=== PATIENT | male | born 1950 | race African-American/Black ===

== ENCOUNTER 2018-05-14 19:08 | Inpatient (IN) ==
[2018-05-14 20:13] LABS: Basophils % 0.4 % (0.0-0.8); Eosinophils # 0.2 10*3/uL (0.0-0.87); Eosinophils % 1.5 % (0.00-10.9); Hematocrit 25.1 VOL% (42.0-52.0); Immature Granulocytes % 0.6 %; Immature Granulocytes Absolute 0.07 #; Lymphocytes # 1.4 10*3/uL (1.4-4.0); Lymphocytes % 12.3 % (21.2-54.2); Mean Corpuscular HGB Conc 27.9 GM/DL (32-36); Mean Corpuscular Hemoglobin 24 PG (27-34); Mean Corpuscular Volume 85.1 FL (87-102); Mean Platelet Volume 9.7 FL (9.6-12.0); Monocytes % 8.7 % (1.7-12.7); Neutrophils # 8.6 10*3/uL (1.4-7.4); Neutrophils % 76.5 % (38.7-73.9); Platelet Count 228 T/CUMM (130-400); Red Blood Count 2.95 MC/CUMM (3.8-5.5); White Blood Count 11.2 T/CUMM (4-12)
[2018-05-14] MEDS ORDERED: FUROSEMIDE 100 MG/10 ML VIAL IV STA (20:19)
[2018-05-14 20:28] LABS: Albumin 2.8 G/DL (3.4-5.0); Bilirubin,Total 0.6 MG/DL (0.2-1.0); Calcium 8.4 MG/DL (8.5-10.1); Potassium 3.8 MMOL/L (3.5-5.1); Total Protein 6.9 G/DL (6.4-8.3)
[2018-05-14 20:37] LABS: INR 1.2; PT Patient Result 13.4 SECS
[2018-05-14 20:38] LABS: ABG Base Excess -3.2 MMOL/L (-2.5-2.5); ABG HCO3 21.4 MMOL/L (20-26); ABG Oxygen Saturation 96.4 % (95-100); ABG PCO2 36.2 MM HG (35-48); ABG PH 7.389 (7.35-7.45); ABG PO2 92.7 MM HG (80-95); ABG TCO2 22.5 MMOL/L (23-27); Allen Test Positive
[2018-05-14] MEDS ORDERED: MAGNESIUM OXIDE 400 MG TABLET PO ONE (21:11)
[2018-05-14] MEDS ORDERED: ONDANSETRON 4 MG/2 ML VIAL IV PRN (21:45)
[2018-05-14] MEDS ORDERED: GLUCAGON 1 MG VIAL IM PRN (22:01)
[2018-05-14] MEDS ORDERED: DEXTROSE 50% 25 GM/50 ML SYRINGE IV PRN (22:01)
[2018-05-14] MEDS ORDERED: hydrALAZINE 20 MG/1 ML VIAL IV PRN (22:02)
[2018-05-14 23:13] LABS: % Iron Saturation 4.6 % (18-50); Ferritin 18.7 ng/ml (26-388)
[2018-05-15 00:04] LABS: Apearance,Urine CLEAR (Clear); Bacteria,Urine Occasional /HPF (Few); Bilirubin,Urine Negative (Negative); Blood, Urine Negative (Negative); Glucose,Urine (UA) Negative (Negative); Ketones,Urine Negative (Negative); Mucus,Urine Occasional /LPF (Occasional); Nitrite,Urine Negative (Negative); Protein,Urine 30 MG/DL; RBC,Urine 2 /HPF (0-4); Squamous Epithelial Cell,Urine Occasional /HPF (0-10); Urine Color Straw (Yellow); Urine Specific Gravity 1.006 (1.001-1.035); Urine Urobilinogen < 2.0 EU/DL (0.2-1.0); WBC,Urine 1 /HPF (0-6)
[2018-05-15] MEDS: INSULIN LISPRO 100 UNIT/ML SUBCUT SCH ×4 (00:10→18:34)
[2018-05-15] MEDS: ALBUTEROL/IPRATROPIUM 3 ML NEB RESP TX SCH ×4 (01:17→19:53)
[2018-05-15] MEDS: HEPARIN 5,000 UNIT/1 ML VIAL SUBCUT SCH ×4 (01:34→21:49)
[2018-05-15 05:11] LABS: Basophils % 0.3 % (0.0-0.8); Eosinophils # 0.2 10*3/uL (0.0-0.87); Eosinophils % 1.5 % (0.00-10.9); Hematocrit 25.8 VOL% (42.0-52.0); Immature Granulocytes % 0.6 %; Immature Granulocytes Absolute 0.07 #; Lymphocytes # 1.2 10*3/uL (1.4-4.0); Lymphocytes % 11.2 % (21.2-54.2); Mean Corpuscular HGB Conc 27.5 GM/DL (32-36); Mean Corpuscular Hemoglobin 23 PG (27-34); Mean Corpuscular Volume 84.3 FL (87-102); Mean Platelet Volume 9.5 FL (9.6-12.0); Monocytes % 8.8 % (1.7-12.7); Neutrophils # 8.5 10*3/uL (1.4-7.4); Neutrophils % 77.6 % (38.7-73.9); Platelet Count 229 T/CUMM (130-400); Red Blood Count 3.06 MC/CUMM (3.8-5.5); White Blood Count 10.9 T/CUMM (4-12)
[2018-05-15 05:12] LABS: Hemoglobin 7.1 GM/DL (14.0-18.0)
[2018-05-15 05:15] LABS: Hypochromasia 1+; Ovalocytes Slight; Platelet Estimate Adequate
[2018-05-15 05:22] LABS: Calcium 8.7 MG/DL (8.5-10.1); Osmolality,Calculated 306.7 MOS/KG (273-304); Potassium 4.1 MMOL/L (3.5-5.1)
[2018-05-15] MEDS: hydrALAZINE 25 MG TABLET PO SCH ×2 (08:20→21:49)
[2018-05-15] MEDS: FUROSEMIDE 40 MG/4 ML VIAL IV SCH ×2 (08:20→17:00)
[2018-05-15] MEDS: ATORVASTATIN 20 MG TABLET PO SCH (08:20)
[2018-05-15] MEDS: amLODIPine 10 MG TABLET PO SCH (08:20)
[2018-05-15] MEDS: FENOFIBRATE 145 MG TABLET PO SCH (08:20)
[2018-05-15] MEDS: ASPIRIN CHEW 81 MG TABLET PO SCH (08:20)
[2018-05-15] MEDS: metOLazone 5 MG TABLET PO SCH (08:20)
[2018-05-15] MEDS: PANTOPRAZOLE 40 MG TABLET PO SCH (08:20)
[2018-05-15] MEDS ORDERED: ROSUVASTATIN 20 MG TABLET PO SCH (09:00)
[2018-05-15] MEDS ORDERED: SODIUM CHLORIDE 0.9% 1,000 ML IV PRN (09:06)
[2018-05-15] MEDS: CARVEDILOL 3.125 MG TABLET PO SCH ×2 (09:40→21:49)
[2018-05-16] MEDS: INSULIN LISPRO 100 UNIT/ML SUBCUT SCH ×3 (00:15→12:01)
[2018-05-16] MEDS: ALBUTEROL/IPRATROPIUM 3 ML NEB RESP TX SCH ×4 (00:36→19:30)
[2018-05-16 05:39] LABS: Total Protein (Chem) 7.1 G/DL (6.4-8.3)
[2018-05-16] MEDS: HEPARIN 5,000 UNIT/1 ML VIAL SUBCUT SCH ×3 (06:39→21:54)
[2018-05-16 09:22] LABS: Albumin (SPE) 3.9 G/DL (3.2-5.3); Albumin (SPE) Rel % 54.5 %; Alpha 1 (SPE) 0.3 G/DL (0.1-0.4); Alpha 1 (SPE) Rel % 4.2 %; Alpha 2 (SPE) 0.8 G/DL (0.4-1.0); Beta (SPE) 1.6 G/DL (0.5-1.1)
[2018-05-16 09:23] LABS: Beta (SPE) Rel % 22.4 %; Gamma (SPE) 0.6 G/DL (0.7-1.7); Gamma (SPE) Rel % 7.9 %
[2018-05-16] MEDS: FUROSEMIDE 40 MG/4 ML VIAL IV SCH ×2 (10:11→16:14)
[2018-05-16] MEDS: ASPIRIN CHEW 81 MG TABLET PO SCH (10:18)
[2018-05-16] MEDS: metOLazone 5 MG TABLET PO SCH (10:19)
[2018-05-16] MEDS: PANTOPRAZOLE 40 MG TABLET PO SCH (10:20)
[2018-05-16] MEDS: amLODIPine 10 MG TABLET PO SCH (10:20)
[2018-05-16] MEDS: FENOFIBRATE 145 MG TABLET PO SCH (10:20)
[2018-05-16] MEDS: hydrALAZINE 25 MG TABLET PO SCH ×2 (10:20→21:53)
[2018-05-16] MEDS: CARVEDILOL 3.125 MG TABLET PO SCH ×2 (10:20→21:53)
[2018-05-16] MEDS: ATORVASTATIN 20 MG TABLET PO SCH (10:20)
[2018-05-16 11:05] LABS: Calcium 8.4 MG/DL (8.5-10.1); Osmolality,Calculated 301.4 MOS/KG (273-304); Potassium 3.9 MMOL/L (3.5-5.1)
[2018-05-16 11:05] LABS: Basophils % 0.3 % (0.0-0.8); Eosinophils # 0.2 10*3/uL (0.0-0.87); Eosinophils % 2.2 % (0.00-10.9); Hematocrit 28.1 VOL% (42.0-52.0); Hemoglobin 8.1 GM/DL (14.0-18.0); Immature Granulocytes % 0.5 %; Immature Granulocytes Absolute 0.05 #; Lymphocytes # 0.7 10*3/uL (1.4-4.0); Lymphocytes % 6.9 % (21.2-54.2); Mean Corpuscular HGB Conc 28.8 GM/DL (32-36); Mean Corpuscular Hemoglobin 24 PG (27-34); Mean Corpuscular Volume 83.6 FL (87-102); Mean Platelet Volume 9.7 FL (9.6-12.0); Monocytes # 0.8 10*3/uL (0.11-0.8); Monocytes % 8.1 % (1.7-12.7); Neutrophils # 8.1 10*3/uL (1.4-7.4); Platelet Count 209 T/CUMM (130-400); Red Blood Count 3.36 MC/CUMM (3.8-5.5); Red Cell Distribution Width 18.2 % (9.3-17.3); White Blood Count 9.9 T/CUMM (4-12)
[2018-05-16 11:35] LABS: Hypochromasia 1+; Microcytosis 1+; Spherocytes Slight
[2018-05-16 11:36] LABS: Platelet Estimate Normal; Polychromasia Slight
[2018-05-16] MEDS ORDERED: SKIN HEALING OINT (AQUAPHOR) 50 GM TUBE TOP PRN (13:58)
[2018-05-16 15:42] LABS: Microalbum/Creat Ratio Random 1893.3 RATIO (0-30)
[2018-05-17] MEDS: INSULIN LISPRO 100 UNIT/ML SUBCUT SCH ×3 (00:12→14:04)
[2018-05-17] MEDS: ALBUTEROL/IPRATROPIUM 3 ML NEB RESP TX SCH ×4 (00:20→19:43)
[2018-05-17 04:54] LABS: Basophils % 0.3 % (0.0-0.8); Eosinophils # 0.3 10*3/uL (0.0-0.87); Eosinophils % 2.7 % (0.00-10.9); Hemoglobin 8.1 GM/DL (14.0-18.0); Immature Granulocytes % 0.4 %; Immature Granulocytes Absolute 0.04 #; Lymphocytes # 1.3 10*3/uL (1.4-4.0); Lymphocytes % 14.2 % (21.2-54.2); Mean Corpuscular HGB Conc 28.9 GM/DL (32-36); Mean Corpuscular Hemoglobin 24 PG (27-34); Mean Corpuscular Volume 83.1 FL (87-102); Mean Platelet Volume 9.6 FL (9.6-12.0); Monocytes % 10.7 % (1.7-12.7); Neutrophils # 6.7 10*3/uL (1.4-7.4); Neutrophils % 71.7 % (38.7-73.9); Platelet Count 226 T/CUMM (130-400); Red Blood Count 3.37 MC/CUMM (3.8-5.5); Red Cell Distribution Width 17.9 % (9.3-17.3); White Blood Count 9.4 T/CUMM (4-12)
[2018-05-17 05:08] LABS: Calcium 8.4 MG/DL (8.5-10.1); Osmolality,Calculated 299.5 MOS/KG (273-304)
[2018-05-17 05:13] LABS: Hypochromasia 1+; Microcytosis 1+; Platelet Estimate Adequate
[2018-05-17] MEDS: HEPARIN 5,000 UNIT/1 ML VIAL SUBCUT SCH ×3 (06:02→22:29)
[2018-05-17] MEDS: FUROSEMIDE 40 MG/4 ML VIAL IV SCH ×2 (09:48→15:47)
[2018-05-17] MEDS: ASPIRIN CHEW 81 MG TABLET PO SCH (09:50)
[2018-05-17] MEDS: PANTOPRAZOLE 40 MG TABLET PO SCH (09:50)
[2018-05-17] MEDS: FENOFIBRATE 145 MG TABLET PO SCH (09:50)
[2018-05-17] MEDS: amLODIPine 10 MG TABLET PO SCH (09:51)
[2018-05-17] MEDS: hydrALAZINE 25 MG TABLET PO SCH (09:51)
[2018-05-17] MEDS: metOLazone 5 MG TABLET PO SCH (09:51)
[2018-05-17] MEDS: CARVEDILOL 3.125 MG TABLET PO SCH ×2 (09:51→22:27)
[2018-05-17] MEDS: ATORVASTATIN 20 MG TABLET PO SCH (09:51)
[2018-05-17] MEDS ORDERED: MAGNESIUM SULF RIDER 4 GM in PREMIX 1 EACH IV PRN (10:55)
[2018-05-17] MEDS ORDERED: MAGNESIUM SULF RIDER 2 GM in PREMIX 1 EACH IV PRN (10:55)
[2018-05-17 13:04] LABS: Calcium 7.9 MG/DL (8.5-10.1); Osmolality,Calculated 292.4 MOS/KG (273-304); Potassium 4.1 MMOL/L (3.5-5.1)
[2018-05-17] MEDS ORDERED: hydrALAZINE 25 MG TABLET PO SCH (15:00)
[2018-05-18] MEDS: ALBUTEROL/IPRATROPIUM 3 ML NEB RESP TX SCH ×4 (02:32→20:34)
[2018-05-18] MEDS: INSULIN LISPRO 100 UNIT/ML SUBCUT SCH ×5 (03:05→18:34)
[2018-05-18 05:13] LABS: Basophils % 0.2 % (0.0-0.8); Eosinophils # 0.2 10*3/uL (0.0-0.87); Eosinophils % 2.2 % (0.00-10.9); Hematocrit 25.1 VOL% (42.0-52.0); Hemoglobin 7.3 GM/DL (14.0-18.0); Immature Granulocytes % 0.9 %; Immature Granulocytes Absolute 0.08 #; Lymphocytes # 1.3 10*3/uL (1.4-4.0); Lymphocytes % 14.9 % (21.2-54.2); Mean Corpuscular HGB Conc 29.1 GM/DL (32-36); Mean Corpuscular Hemoglobin 24 PG (27-34); Mean Corpuscular Volume 82.6 FL (87-102); Mean Platelet Volume 10.7 FL (9.6-12.0); Monocytes % 11.6 % (1.7-12.7); Neutrophils # 6.3 10*3/uL (1.4-7.4); Neutrophils % 70.2 % (38.7-73.9); Platelet Count 227 T/CUMM (130-400); Red Blood Count 3.04 MC/CUMM (3.8-5.5); White Blood Count 8.9 T/CUMM (4-12)
[2018-05-18 05:42] LABS: Risk Ratio 2.87; VLDL CHOLESTEROL 18.2 MG/DL
[2018-05-18] MEDS: HEPARIN 5,000 UNIT/1 ML VIAL SUBCUT SCH ×3 (06:19→21:04)
[2018-05-18 06:42] LABS: Calcium 8.1 MG/DL (8.5-10.1); Osmolality,Calculated 302.5 MOS/KG (273-304); Potassium 3.5 MMOL/L (3.5-5.1)
[2018-05-18] MEDS: POTASSIUM CHLORIDE 20 MEQ TABLET PO PRN ×2 (06:55→16:26)
[2018-05-18] MEDS: ATORVASTATIN 20 MG TABLET PO SCH (08:46)
[2018-05-18] MEDS: ASPIRIN CHEW 81 MG TABLET PO SCH (08:46)
[2018-05-18] MEDS: PANTOPRAZOLE 40 MG TABLET PO SCH (08:47)
[2018-05-18] MEDS: FENOFIBRATE 145 MG TABLET PO SCH (08:52)
[2018-05-18] MEDS: FUROSEMIDE 40 MG/4 ML VIAL IV SCH ×2 (08:52→17:16)
[2018-05-18] MEDS: metOLazone 5 MG TABLET PO SCH (08:52)
[2018-05-18] MEDS: CARVEDILOL 3.125 MG TABLET PO SCH ×2 (08:52→21:04)
[2018-05-18] MEDS: amLODIPine 10 MG TABLET PO SCH (08:52)
[2018-05-18] MEDS ORDERED: SODIUM CHLORIDE 0.9% 1,000 ML IV PRN (11:28)
[2018-05-18 18:09] LABS: Hematocrit 28.3 VOL% (42.0-52.0); Hemoglobin 8.4 GM/DL (14.0-18.0)
[2018-05-18] MEDS: ISOSORBIDE DINITRATE 20 MG TABLET PO SCH (21:04)
[2018-05-19] MEDS: INSULIN LISPRO 100 UNIT/ML SUBCUT SCH ×3 (01:09→13:53)
[2018-05-19] MEDS: ALBUTEROL/IPRATROPIUM 3 ML NEB RESP TX SCH ×2 (02:07→07:05)
[2018-05-19] MEDS: HEPARIN 5,000 UNIT/1 ML VIAL SUBCUT SCH (05:22)
[2018-05-19] MEDS: ASPIRIN CHEW 81 MG TABLET PO SCH (08:12)
[2018-05-19] MEDS: ISOSORBIDE DINITRATE 20 MG TABLET PO SCH (08:13)
[2018-05-19] MEDS: ATORVASTATIN 20 MG TABLET PO SCH (08:13)
[2018-05-19] MEDS: FENOFIBRATE 145 MG TABLET PO SCH (08:13)
[2018-05-19] MEDS: PANTOPRAZOLE 40 MG TABLET PO SCH (08:13)
[2018-05-19] MEDS: metOLazone 5 MG TABLET PO SCH (08:13)
[2018-05-19] MEDS: CARVEDILOL 3.125 MG TABLET PO SCH (08:13)
[2018-05-19] MEDS: amLODIPine 10 MG TABLET PO SCH (08:14)
[2018-05-19] MEDS: FUROSEMIDE 40 MG/4 ML VIAL IV SCH (08:19)
[2018-05-19] MEDS ORDERED: DESITIN 4OZ/NYSTATIN 15 GRAM MIXTURE PASTE TOP PRN (10:43)
[2018-05-19 12:05] VITALS: BP 143/67
== END 2018-05-19 13:45 | disposition home health service (06) | DRG 291 ==
LOC: N.ED 19:08 → SUATTDRO 21:45 → N.EDINP 21:45 → N.TELES 22:28
PROVIDERS: ADMIT Hospitalist; ATTEND Hospitalist

== ENCOUNTER 2018-10-16 20:26 | Inpatient (IN) ==
[2018-10-16 22:27] LABS: Basophils % 0.2 % (0.0-0.8); Eosinophils # 0.1 10*3/uL (0.0-0.87); Eosinophils % 0.5 % (0.00-10.9); Hematocrit 20.8 VOL% (42.0-52.0); Immature Granulocytes % 1.7 %; Immature Granulocytes Absolute 0.28 #; Lymphocytes # 1.3 10*3/uL (1.4-4.0); Lymphocytes % 8.1 % (21.2-54.2); Mean Corpuscular HGB Conc 27.9 GM/DL (32-36); Mean Platelet Volume 9.5 FL (9.6-12.0); Monocytes % 6.9 % (1.7-12.7); NRBC # 0.02 10*3/uL; Neutrophils % 82.6 % (38.7-73.9); Platelet Count 256 T/CUMM (130-400); Red Blood Count 2.39 MC/CUMM (3.8-5.5); Red Cell Distribution Width 19.5 % (9.3-17.3); White Blood Count 16.5 T/CUMM (4-12)
[2018-10-16 22:29] LABS: Hemoglobin 5.8 GM/DL (14.0-18.0)
[2018-10-16 22:43] LABS: Alanine Aminotransferase 24 U/L (16-61); Albumin 2.9 G/DL (3.4-5.0); Alkaline Phosphatase 112 U/L (45-117); Aspartate Amino Transferase 27 U/L (0-37); Bilirubin,Total < 0.39 MG/DL (0.2-1.0); Blood Urea Nitrogen 88 MG/DL (7-18); Calcium 8.3 MG/DL (8.5-10.1); Glucose 117 MG/DL (74-106); Total Protein 7.4 G/DL (6.4-8.3)
[2018-10-16 22:44] LABS: Anisocytosis 1+; Hypochromasia Slight; Microcytosis 1+
[2018-10-16 22:45] LABS: Platelet Estimate Adequate; Polychromasia Few; Schistocytes Few
[2018-10-16 23:13] LABS: INR 1.1; PT Patient Result 11.5 SECS
[2018-10-16 23:56] LABS: Troponin I 0.078 NG/ML (0.00-0.045)
[2018-10-17] MEDS ORDERED: PANTOPRAZOLE 40 MG VIAL IV STA (00:05)
[2018-10-17] MEDS ORDERED: hydrOXYzine HCL 25 MG TABLET PO PRN (03:18)
[2018-10-17] MEDS ORDERED: SODIUM CHLORIDE 0.9% 1,000 ML IV PRN ×2 (03:18→14:31)
[2018-10-17] MEDS ORDERED: ONDANSETRON 4 MG/2 ML VIAL IV PRN (03:18)
[2018-10-17] MEDS ORDERED: FUROSEMIDE 20 MG/2 ML VIAL IV PRN (03:18)
[2018-10-17] MEDS ORDERED: ACETAMINOPHEN 325 MG TABLET PO PRN (03:18)
[2018-10-17] MEDS: CEFTAROLINE 200 MG in SODIUM CHLORIDE 0.9% 100 ML IV SCH ×2 (04:57→22:17)
[2018-10-17 05:15] LABS: Basophils % 0.1 % (0.0-0.8); Eosinophils # 0.1 10*3/uL (0.0-0.87); Eosinophils % 0.5 % (0.00-10.9); Immature Granulocytes % 1.5 %; Immature Granulocytes Absolute 0.23 #; Lymphocytes # 1.5 10*3/uL (1.4-4.0); Lymphocytes % 9.3 % (21.2-54.2); Mean Corpuscular HGB Conc 27.7 GM/DL (32-36); Mean Corpuscular Volume 88.9 FL (87-102); Mean Platelet Volume 9.8 FL (9.6-12.0); Monocytes % 6.9 % (1.7-12.7); Neutrophils % 81.7 % (38.7-73.9); Platelet Count 239 T/CUMM (130-400); Red Blood Count 1.99 MC/CUMM (3.8-5.5); Red Cell Distribution Width 19.5 % (9.3-17.3); White Blood Count 15.6 T/CUMM (4-12)
[2018-10-17 05:18] LABS: Hematocrit 17.6 VOL% (42.0-52.0); Hemoglobin 4.8 GM/DL (14.0-18.0)
[2018-10-17 05:19] LABS: Calcium 8.1 MG/DL (8.5-10.1); Osmolality,Calculated 313.8 MOS/KG (273-304)
[2018-10-17 05:29] LABS: Hematocrit 17.7 VOL% (42.0-52.0); Hemoglobin 4.9 GM/DL (14.0-18.0)
[2018-10-17 05:43] LABS: Hypochromasia 2+; Microcytosis Slight; Platelet Estimate Adequate
[2018-10-17] MEDS: PANTOPRAZOLE INJ 200 MG in SODIUM CHLORIDE 0.9% 250 ML IV SCH (06:22)
[2018-10-17] MEDS: CETIRIZINE 10 MG TABLET PO SCH (08:16)
[2018-10-17] MEDS: amLODIPine 10 MG TABLET PO SCH (08:16)
[2018-10-17] MEDS: ATORVASTATIN 20 MG TABLET PO SCH (08:16)
[2018-10-17] MEDS: CARVEDILOL 12.5 MG TABLET PO SCH ×2 (08:16→20:10)
[2018-10-17] MEDS: ISOSORBIDE DINITRATE 20 MG TABLET PO SCH ×3 (08:16→20:10)
[2018-10-17 08:56] LABS: Ferritin 22.5 ng/ml (26-388)
[2018-10-17] MEDS ORDERED: FENOFIBRATE 145 MG TABLET PO SCH (09:00)
[2018-10-17] MEDS ORDERED: SODIUM BICARB INJ 150 MEQ in STERILE WATER INJ 850 ML IV SCH (12:00)
[2018-10-17 12:02] LABS: % Iron Saturation 6.8 % (18-50); Uric Acid 9.4 MG/DL (3.5-7.2)
[2018-10-17 12:10] LABS: Hematocrit 21.6 VOL% (42.0-52.0)
[2018-10-17 12:14] LABS: Hemoglobin 6.2 GM/DL (14.0-18.0)
[2018-10-17 13:11] LABS: Hematocrit 22.1 VOL% (42.0-52.0)
[2018-10-17 13:18] LABS: Hemoglobin 6.4 GM/DL (14.0-18.0)
[2018-10-17] MEDS: SODIUM BICARB INJ 150 MEQ, POTASSIUM CHLORIDE INJ 20 MEQ in STERILE WATER INJ 850 ML IV SCH (14:12)
[2018-10-17 15:27] LABS: Hepatitis B Core IgM Quant 0.07 Index; Hepatitis B Surface Ag Quant < 0.10 Index; Hepatitis B Surface Ag Result Negative (Negative); Hepatitis C Virus Ab Quant < 0.02 Index; Hepatitis C Virus Ab Result Negative (Negative)
[2018-10-17] MEDS ORDERED: ceFAZolin 1,000 MG in SYRINGE 1 EACH IV ONE (17:26)
[2018-10-17 21:45] LABS: Hematocrit 26.5 VOL% (42.0-52.0)
[2018-10-17 22:35] LABS: Creatinine,Urine Random 26 MG/DL; Total Protein,Urine Random 40 MG/DL; Urea Nitrogen, Urine Random 258 MG/DL
[2018-10-18] MEDS: SODIUM BICARB INJ 150 MEQ, POTASSIUM CHLORIDE INJ 20 MEQ in STERILE WATER INJ 850 ML IV SCH ×2 (04:13→12:37)
[2018-10-18 05:05] LABS: Basophils % 0.2 % (0.0-0.8); Eosinophils # 0.4 10*3/uL (0.0-0.87); Hematocrit 26.9 VOL% (42.0-52.0); Hemoglobin 8.2 GM/DL (14.0-18.0); Immature Granulocytes % 1.5 %; Lymphocytes % 7.5 % (21.2-54.2); Mean Corpuscular HGB Conc 30.5 GM/DL (32-36); Mean Corpuscular Volume 88.8 FL (87-102); Mean Platelet Volume 10.4 FL (9.6-12.0); Monocytes % 6.8 % (1.7-12.7); Red Blood Count 3.03 MC/CUMM (3.8-5.5); Red Cell Distribution Width 17.7 % (9.3-17.3); White Blood Count 13.7 T/CUMM (4-12)
[2018-10-18 05:23] LABS: Platelet Count 171 T/CUMM (130-400)
[2018-10-18 05:28] LABS: Microcytosis 1+; Platelet Estimate Adequate; Polychromasia Few
[2018-10-18 05:35] LABS: Albumin 2.5 G/DL (3.4-5.0); Calcium 8.2 MG/DL (8.5-10.1); Osmolality,Calculated 309.8 MOS/KG (273-304)
[2018-10-18] MEDS ORDERED: HEPARIN 5,000 UNIT/1 ML VIAL ONE (06:29)
[2018-10-18] MEDS ORDERED: LIDOCAINE 1% 20 ML VIAL ONE (06:29)
[2018-10-18] MEDS ORDERED: BUPIVACAINE MPF 0.25% /EPI 30 ML VIAL ONE (06:29)
[2018-10-18] MEDS ORDERED: ceFAZolin 1,000 MG VIAL ONE (07:11)
[2018-10-18] MEDS ORDERED: LACTATED RINGERS 1,000 ML IV SCH (08:00)
[2018-10-18] MEDS ORDERED: TISSUE ADHESIVE 1 EACH APPLICATOR TOP ONE (08:00)
[2018-10-18 08:16] LABS: Random Urine Protein (Bench) 40 MG/DL (<11.9); Total Protein (Chem) 6.1 G/DL (6.4-8.3)
[2018-10-18] MEDS ORDERED: PROPOFOL 200 MG/20 ML VIAL IV ONE (08:16)
[2018-10-18] MEDS ORDERED: MIDAZOLAM 2 MG/2 ML VIAL ONE (08:17)
[2018-10-18] MEDS ORDERED: KETAMINE 500 MG/10 ML VIAL ONE (08:17)
[2018-10-18] MEDS ORDERED: ONDANSETRON 4 MG/2 ML VIAL ONE (08:17)
[2018-10-18] MEDS ORDERED: SODIUM CHLORIDE 0.9% 100 ML IV ONE (08:17)
[2018-10-18] MEDS ORDERED: fentaNYL 100 MCG/2 ML VIAL ONE (08:17)
[2018-10-18 10:02] LABS: Albumin (SPE) 3.5 G/DL (3.2-5.3); Albumin (SPE) Rel % 57.2 %; Alpha 1 (SPE) 0.3 G/DL (0.1-0.4); Alpha 1 (SPE) Rel % 4.7 %; Alpha 2 (SPE) 0.6 G/DL (0.4-1.0); Alpha 2 (SPE) Rel % 10.5 %; Beta (SPE) Rel % 19.5 %; Gamma (SPE) 0.5 G/DL (0.7-1.7); Gamma (SPE) Rel % 8.1 %
[2018-10-18 10:05] LABS: Beta (SPE) 1.2 G/DL (0.5-1.1)
[2018-10-18] MEDS ORDERED: HEPARIN 10,000 UNIT/10 ML VIAL IV PRN (10:51)
[2018-10-18] MEDS: ISOSORBIDE DINITRATE 20 MG TABLET PO SCH ×3 (11:28→20:06)
[2018-10-18] MEDS: PANTOPRAZOLE INJ 200 MG in SODIUM CHLORIDE 0.9% 250 ML IV SCH (12:36)
[2018-10-18] MEDS: ATORVASTATIN 20 MG TABLET PO SCH (12:37)
[2018-10-18] MEDS: CETIRIZINE 10 MG TABLET PO SCH (12:37)
[2018-10-18] MEDS: CARVEDILOL 12.5 MG TABLET PO SCH ×2 (12:37→20:06)
[2018-10-18] MEDS: amLODIPine 10 MG TABLET PO SCH (12:37)
[2018-10-18] MEDS: cefTRIAXone 1,000 MG in SYRINGE 1 EACH IV SCH (12:38)
[2018-10-18] MEDS: PANTOPRAZOLE 40 MG TABLET PO SCH ×2 (12:38→16:04)
[2018-10-18] MEDS ORDERED: EPOETIN ALFA 10,000 UNIT/1 ML VIAL IV PRN (12:49)
[2018-10-19 06:33] LABS: Basophils % 0.2 % (0.0-0.8); Eosinophils % 0.2 % (0.00-10.9); Hematocrit 29.3 VOL% (42.0-52.0); Hemoglobin 8.8 GM/DL (14.0-18.0); Immature Granulocytes % 0.9 %; Immature Granulocytes Absolute 0.14 #; Lymphocytes # 0.7 10*3/uL (1.4-4.0); Lymphocytes % 4.8 % (21.2-54.2); Mean Corpuscular Volume 87.7 FL (87-102); Mean Platelet Volume 10.1 FL (9.6-12.0); Monocytes % 7.2 % (1.7-12.7); Neutrophils % 86.7 % (38.7-73.9); Platelet Count 224 T/CUMM (130-400); Red Blood Count 3.34 MC/CUMM (3.8-5.5); Red Cell Distribution Width 17.6 % (9.3-17.3); White Blood Count 15.5 T/CUMM (4-12)
[2018-10-19 07:15] LABS: Albumin 2.8 G/DL (3.4-5.0); Band Neutrophils 1 % (0-10); Calcium 8.1 MG/DL (8.5-10.1); Eosinophils 3 % (0-10); Hypochromasia 1+; Lymphocytes 5 % (20-55); Osmolality,Calculated 302.7 MOS/KG (273-304); Platelet Estimate Adequate; Segmented Neutrophils 89 % (50-85); Total Cells Counted 100
[2018-10-19 07:39] LABS: Osmolality,Calculated 300.8 MOS/KG (273-304)
[2018-10-19] MEDS: PANTOPRAZOLE 40 MG TABLET PO SCH ×2 (07:58→17:19)
[2018-10-19] MEDS: cefTRIAXone 1,000 MG in SYRINGE 1 EACH IV SCH (08:12)
[2018-10-19] MEDS: CETIRIZINE 10 MG TABLET PO SCH (08:37)
[2018-10-19] MEDS: CARVEDILOL 12.5 MG TABLET PO SCH ×2 (08:37→22:52)
[2018-10-19] MEDS: ATORVASTATIN 20 MG TABLET PO SCH (08:37)
[2018-10-19] MEDS: amLODIPine 10 MG TABLET PO SCH (08:37)
[2018-10-19] MEDS: ISOSORBIDE DINITRATE 20 MG TABLET PO SCH ×3 (08:37→22:53)
[2018-10-19] MEDS ORDERED: LIDOCAINE 2% 5 ML VIAL ONE (10:00)
[2018-10-19] MEDS ORDERED: PROPOFOL 200 MG/20 ML VIAL IV ONE (10:00)
[2018-10-19] MEDS ORDERED: SODIUM CHLORIDE 0.9% 1,000 ML IV SCH (10:30)
[2018-10-19] MEDS ORDERED: BISACODYL 5 MG TABLET PO ONE (12:00)
[2018-10-19] MEDS ORDERED: POLYETHYLENE GLYCOL POWDER 255 GM BOTTLE PO ONE (18:00)
[2018-10-20 06:07] LABS: Albumin 2.6 G/DL (3.4-5.0); Calcium 8.4 MG/DL (8.5-10.1); Osmolality,Calculated 282.5 MOS/KG (273-304)
[2018-10-20] MEDS: ATORVASTATIN 20 MG TABLET PO SCH (08:08)
[2018-10-20] MEDS: CETIRIZINE 10 MG TABLET PO SCH (08:08)
[2018-10-20] MEDS: amLODIPine 10 MG TABLET PO SCH (08:08)
[2018-10-20] MEDS: ISOSORBIDE DINITRATE 20 MG TABLET PO SCH ×3 (08:08→21:38)
[2018-10-20] MEDS: CARVEDILOL 12.5 MG TABLET PO SCH ×2 (08:08→21:38)
[2018-10-20] MEDS: cefTRIAXone 1,000 MG in SYRINGE 1 EACH IV SCH (08:09)
[2018-10-20] MEDS: PANTOPRAZOLE 40 MG TABLET PO SCH ×2 (08:09→15:32)
[2018-10-20] MEDS: POTASSIUM CHLORIDE 20 MEQ TABLET PO PRN (22:32)
[2018-10-21] MEDS: POTASSIUM CHLORIDE 20 MEQ TABLET PO PRN ×3 (00:21→04:54)
[2018-10-21 05:06] LABS: Basophils % 0.3 % (0.0-0.8); Eosinophils # 0.2 10*3/uL (0.0-0.87); Eosinophils % 1.3 % (0.00-10.9); Hematocrit 29.5 VOL% (42.0-52.0); Hemoglobin 8.7 GM/DL (14.0-18.0); Immature Granulocytes Absolute 0.12 #; Lymphocytes # 1.2 10*3/uL (1.4-4.0); Lymphocytes % 9.4 % (21.2-54.2); Mean Corpuscular HGB Conc 29.5 GM/DL (32-36); Mean Corpuscular Volume 88.6 FL (87-102); Mean Platelet Volume 9.2 FL (9.6-12.0); Monocytes % 12.5 % (1.7-12.7); NRBC # 0.02 10*3/uL; Neutrophils % 75.5 % (38.7-73.9); Platelet Count 200 T/CUMM (130-400); Red Blood Count 3.33 MC/CUMM (3.8-5.5); Red Cell Distribution Width 17.3 % (9.3-17.3); White Blood Count 12.4 T/CUMM (4-12)
[2018-10-21 05:15] LABS: INR 1.1; PT Patient Result 11.7 SECS
[2018-10-21 05:42] LABS: Calcium 8.6 MG/DL (8.5-10.1); Osmolality,Calculated 278.4 MOS/KG (273-304)
[2018-10-21 05:44] LABS: Albumin 2.6 G/DL (3.4-5.0); Calcium 8.6 MG/DL (8.5-10.1); Osmolality,Calculated 276.5 MOS/KG (273-304)
[2018-10-21] MEDS: PANTOPRAZOLE 40 MG TABLET PO SCH ×2 (06:40→16:51)
[2018-10-21] MEDS ORDERED: LIDOCAINE 100 MG/5 ML SYRINGE ONE (09:10)
[2018-10-21] MEDS ORDERED: PROPOFOL 200 MG/20 ML VIAL IV ONE (09:10)
[2018-10-21] MEDS: CARVEDILOL 12.5 MG TABLET PO SCH ×2 (13:18→21:18)
[2018-10-21] MEDS: CETIRIZINE 10 MG TABLET PO SCH (13:18)
[2018-10-21] MEDS: amLODIPine 10 MG TABLET PO SCH (13:18)
[2018-10-21] MEDS: ISOSORBIDE DINITRATE 20 MG TABLET PO SCH ×3 (13:18→21:18)
[2018-10-21] MEDS: cefTRIAXone 1,000 MG in SYRINGE 1 EACH IV SCH (13:18)
[2018-10-21] MEDS: ATORVASTATIN 20 MG TABLET PO SCH (13:19)
[2018-10-22 06:48] LABS: Albumin 2.7 G/DL (3.4-5.0); Calcium 8.3 MG/DL (8.5-10.1); Osmolality,Calculated 283.4 MOS/KG (273-304)
[2018-10-22] MEDS: amLODIPine 10 MG TABLET PO SCH (08:05)
[2018-10-22] MEDS: CETIRIZINE 10 MG TABLET PO SCH (08:05)
[2018-10-22] MEDS: CARVEDILOL 12.5 MG TABLET PO SCH (08:05)
[2018-10-22] MEDS: PANTOPRAZOLE 40 MG TABLET PO SCH (08:05)
[2018-10-22] MEDS: ATORVASTATIN 20 MG TABLET PO SCH (08:05)
[2018-10-22] MEDS: cefTRIAXone 1,000 MG in SYRINGE 1 EACH IV SCH (08:05)
[2018-10-22] MEDS: ISOSORBIDE DINITRATE 20 MG TABLET PO SCH ×2 (08:05→14:48)
[2018-10-22 12:31] LABS: Basophils % 0.2 % (0.0-0.8); Eosinophils # 0.5 10*3/uL (0.0-0.87); Eosinophils % 3.8 % (0.00-10.9); Hematocrit 28.7 VOL% (42.0-52.0); Hemoglobin 8.8 GM/DL (14.0-18.0); Immature Granulocytes Absolute 0.12 #; Lymphocytes % 8.2 % (21.2-54.2); Mean Corpuscular HGB Conc 30.7 GM/DL (32-36); Mean Corpuscular Volume 88.6 FL (87-102); Mean Platelet Volume 10.7 FL (9.6-12.0); Monocytes % 12.6 % (1.7-12.7); Neutrophils % 74.2 % (38.7-73.9); Platelet Count 198 T/CUMM (130-400); Red Blood Count 3.24 MC/CUMM (3.8-5.5); Red Cell Distribution Width 17.1 % (9.3-17.3); White Blood Count 12.3 T/CUMM (4-12)
[2018-10-22 12:38] VITALS: BP 134/67
[2018-10-22 12:45] LABS: Hypochromasia Slight; Platelet Estimate Normal; Polychromasia Slight
== END 2018-10-22 17:16 | disposition home or self-care (01) | DRG 378 ==
LOC: N.ED 20:26 → SUATTDRO 10-17 00:26 → N.EDINP 10-17 00:26 → N.5E 10-17 01:47
PROVIDERS: ATTEND Family Medicine

== ENCOUNTER 2020-08-27 08:06 | Inpatient (IN) ==
[2020-08-27] MEDS ORDERED: DIPHENOXYLATE/ATROPINE 2.5-0.025 MG TABLET PO STA (09:44)
[2020-08-27] MEDS ORDERED: cefTRIAXone 1,000 MG in SODIUM CHLORIDE 0.9% 100 ML IV STA (10:40)
[2020-08-27 10:55] LABS: Basophils % 0.3 % (0.0-0.8); Eosinophils % 0.4 % (0.00-10.9); Hematocrit 35.7 VOL% (42.0-52.0); Hemoglobin 11.3 GM/DL (14.0-18.0); Immature Granulocytes % 0.5 %; Immature Granulocytes Absolute 0.04 #; Lymphocytes # 0.8 10*3/uL (1.4-4.0); Lymphocytes % 10.6 % (21.2-54.2); Mean Corpuscular HGB Conc 31.7 GM/DL (32-36); Mean Corpuscular Volume 93.9 FL (87-102); Mean Platelet Volume 11.3 FL (9.6-12.0); Monocytes % 14.8 % (1.7-12.7); Neutrophils % 73.4 % (38.7-73.9); Platelet Count 173 T/CUMM (130-400); Red Cell Distribution Width 15.8 % (9.3-17.3); White Blood Count 7.7 T/CUMM (4-12)
[2020-08-27 11:10] LABS: Calcium 7.6 MG/DL (8.5-10.1); Osmolality,Calculated 302.1 MOS/KG (273-304); Potassium 2.8 MMOL/L (3.5-5.1)
[2020-08-27] MEDS ORDERED: LIDOCAINE 1%/EPI INJ 20 ML VIAL ONE (12:06)
[2020-08-27] MEDS ORDERED: BUPIVACAINE MPF 0.25% 30 ML VIAL ONE (12:06)
[2020-08-27] MEDS ORDERED: SODIUM CHLORIDE 0.9% 250 ML IV SCH (12:30)
[2020-08-27] MEDS ORDERED: ONDANSETRON 4 MG/2 ML VIAL IV PRN (13:30)
[2020-08-27] MEDS ORDERED: GLUCAGON 1 MG VIAL IM PRN (13:30)
[2020-08-27] MEDS ORDERED: ACETAMINOPHEN 325 MG TABLET PO PRN (13:30)
[2020-08-27] MEDS ORDERED: DEXTROSE 50% 25 GM/50 ML VIAL IV PRN (13:30)
[2020-08-27] MEDS ORDERED: POTASSIUM CHLORIDE 20 MEQ TABLET PO ONE ×2 (13:55→14:30)
[2020-08-27] MEDS ORDERED: INSULIN GLARGINE 100 UNIT/ML SUBCUT PRN (13:58)
[2020-08-27] MEDS: HEPARIN 5,000 UNIT/1 ML VIAL SUBCUT SCH (14:48)
[2020-08-27] MEDS: carvediloL 6.25 MG TABLET PO SCH ×2 (15:21→20:44)
[2020-08-27 15:35] LABS: Potassium 2.8 MMOL/L (3.5-5.1)
[2020-08-27] MEDS: INSULIN LISPRO 100 UNIT/ML SUBCUT SCH ×2 (15:40→20:44)
[2020-08-27] MEDS: SEVELAMER CARBONATE 800 MG TABLET PO SCH (16:07)
[2020-08-28] MEDS: HEPARIN 5,000 UNIT/1 ML VIAL SUBCUT SCH (03:20)
[2020-08-28 05:37] LABS: Basophils % 0.3 % (0.0-0.8); Eosinophils # 0.1 10*3/uL (0.0-0.87); Eosinophils % 2.1 % (0.00-10.9); Hematocrit 30.2 VOL% (42.0-52.0); Hemoglobin 9.4 GM/DL (14.0-18.0); Immature Granulocytes % 0.9 %; Immature Granulocytes Absolute 0.05 #; Lymphocytes # 1.1 10*3/uL (1.4-4.0); Lymphocytes % 19.6 % (21.2-54.2); Mean Corpuscular HGB Conc 31.1 GM/DL (32-36); Mean Corpuscular Volume 96.2 FL (87-102); Mean Platelet Volume 11.3 FL (9.6-12.0); Monocytes % 20.8 % (1.7-12.7); Neutrophils % 56.3 % (38.7-73.9); Platelet Count 162 T/CUMM (130-400); Red Blood Count 3.14 MC/CUMM (3.8-5.5); Red Cell Distribution Width 15.9 % (9.3-17.3); White Blood Count 5.8 T/CUMM (4-12)
[2020-08-28 06:06] LABS: Band Neutrophils 1 % (0-10); Eosinophils 2 % (0-10); Hypochromasia 1+; Lymphocytes 21 % (20-55); Microcytosis 1+; Platelet Estimate Adequate; Segmented Neutrophils 60 % (50-85); Total Cells Counted 100
[2020-08-28 06:10] LABS: Albumin 2.4 G/DL (3.4-5.0); Bilirubin,Total 0.7 MG/DL (0.2-1.0); Calcium 6.7 MG/DL (8.5-10.1); Osmolality,Calculated 304.1 MOS/KG (273-304); Potassium 2.8 MMOL/L (3.5-5.1); Total Protein 6.4 G/DL (6.4-8.2)
[2020-08-28 06:13] LABS: Risk Ratio 6.43; VLDL CHOLESTEROL 44.6 MG/DL
[2020-08-28] MEDS: ASPIRIN CHEW 81 MG TABLET PO SCH (09:39)
[2020-08-28] MEDS: FENOFIBRATE 145 MG TABLET PO SCH (09:39)
[2020-08-28] MEDS: SEVELAMER CARBONATE 800 MG TABLET PO SCH ×3 (09:39→17:26)
[2020-08-28] MEDS: ATORVASTATIN 20 MG TABLET PO SCH (09:39)
[2020-08-28] MEDS: PANTOPRAZOLE 40 MG TABLET PO SCH (09:40)
[2020-08-28] MEDS: carvediloL 6.25 MG TABLET PO SCH ×2 (09:40→21:43)
[2020-08-28] MEDS: INSULIN LISPRO 100 UNIT/ML SUBCUT SCH ×4 (09:59→21:43)
[2020-08-28 11:02] LABS: Hemoglobin 10.3 GM/DL (14.0-18.0)
[2020-08-28 16:36] LABS: Hematocrit 33.9 VOL% (42.0-52.0); Hemoglobin 10.9 GM/DL (14.0-18.0)
[2020-08-28] MEDS: amLODIPine 10 MG TABLET PO SCH (17:25)
[2020-08-28] MEDS ORDERED: TUBERCULIN SKIN TEST 0.1 ML SYRINGE INTRADERM ONE (19:48)
[2020-08-28 23:01] LABS: Hematocrit 32.6 VOL% (42.0-52.0); Hemoglobin 10.4 GM/DL (14.0-18.0)
[2020-08-29] MEDS ORDERED: SODIUM CHLORIDE 0.9% 1,000 ML IV SCH (08:00)
[2020-08-29] MEDS: SEVELAMER CARBONATE 800 MG TABLET PO SCH ×2 (11:10→16:17)
[2020-08-29] MEDS: carvediloL 6.25 MG TABLET PO SCH (11:11)
[2020-08-29] MEDS ORDERED: LIDOCAINE 2% 5 ML VIAL ONE (12:41)
[2020-08-29] MEDS ORDERED: propofoL 200 MG/20 ML VIAL IV ONE (12:41)
[2020-08-29] MEDS ORDERED: ETOMIDATE 20 MG/10 ML VIAL IV ONE (12:41)
[2020-08-29] MEDS: INSULIN LISPRO 100 UNIT/ML SUBCUT SCH (16:17)
[2020-08-29] MEDS: amLODIPine 10 MG TABLET PO SCH (16:41)
[2020-08-29] MEDS: ATORVASTATIN 20 MG TABLET PO SCH (16:41)
[2020-08-29] MEDS: ASPIRIN CHEW 81 MG TABLET PO SCH (16:41)
[2020-08-29] MEDS: PANTOPRAZOLE 40 MG TABLET PO SCH (16:42)
[2020-08-29 16:45] VITALS: BP 113/65
[2020-08-29] MEDS: FENOFIBRATE 145 MG TABLET PO SCH (16:45)
== END 2020-08-29 18:12 | disposition home or self-care (01) | DRG 377 ==
LOC: SUATTDRO → N.ED 08:06 → N.TELEN 12:15 → N.SDS 12:15 → N.SDSINP 12:17 → N.TELEN 14:33 → SUATTDRO 08-28 10:38
PROVIDERS: ADMIT Internal Medicine; ATTEND Internal Medicine Geriatric Medicine

== ENCOUNTER 2020-10-01 08:54 | Observation (INO) ==
[2020-10-01 09:37] LABS: Basophils % 0.3 % (0.0-0.8); Eosinophils # 0.2 10*3/uL (0.0-0.87); Eosinophils % 1.7 % (0.00-10.9); Hematocrit 36.8 VOL% (42.0-52.0); Immature Granulocytes % 1.3 %; Immature Granulocytes Absolute 0.11 #; Lymphocytes # 0.7 10*3/uL (1.4-4.0); Lymphocytes % 8.3 % (21.2-54.2); Mean Corpuscular HGB Conc 29.9 GM/DL (32-36); Mean Corpuscular Volume 99.5 FL (87-102); Mean Platelet Volume 10.1 FL (9.6-12.0); Monocytes % 8.3 % (1.7-12.7); Neutrophils % 80.1 % (38.7-73.9); Platelet Count 190 T/CUMM (130-400); Red Cell Distribution Width 17.2 % (9.3-17.3); White Blood Count 8.6 T/CUMM (4-12)
[2020-10-01 09:44] LABS: INR 1.1; PT Patient Result 12.3 SECS (10.5-12.0); Partial Thromboplastin Time 37.1 SECS (23.9-33.8)
[2020-10-01 10:16] LABS: Albumin 3.4 G/DL (3.4-5.0); Calcium 8.3 MG/DL (8.5-10.1); Osmolality,Calculated 290.8 MOS/KG (273-304); Potassium 4.1 MMOL/L (3.5-5.1); Total Protein 7.2 G/DL (6.4-8.2)
[2020-10-01] MEDS ORDERED: ZALEPLON 5 MG CAPSULE PO PRN (12:35)
[2020-10-01] MEDS ORDERED: hydrALAZINE 20 MG/1 ML VIAL IV PRN (12:35)
[2020-10-01] MEDS ORDERED: DEXTROSE 50% 25 GM/50 ML VIAL IV PRN ×2 (12:35)
[2020-10-01] MEDS ORDERED: ACETAMINOPHEN 325 MG TABLET PO PRN (12:35)
[2020-10-01] MEDS ORDERED: ONDANSETRON 4 MG/2 ML VIAL IV PRN (12:35)
[2020-10-01] MEDS ORDERED: LACTULOSE 20 GM/30 ML UDCUP PO PRN (12:35)
[2020-10-01] MEDS ORDERED: GLUCAGON 1 MG VIAL IM PRN ×2 (12:35)
[2020-10-01] MEDS ORDERED: MORPHINE 2 MG/1 ML SYRINGE IV PRN (12:35)
[2020-10-01 12:55] LABS: Risk Ratio 2.54
[2020-10-01] MEDS: HEPARIN 5,000 UNIT/1 ML VIAL SUBCUT SCH (14:56)
[2020-10-01] MEDS: SEVELAMER CARBONATE 800 MG TABLET PO SCH (16:27)
[2020-10-01] MEDS: INSULIN LISPRO 100 UNIT/ML SUBCUT SCH ×2 (16:27→20:45)
[2020-10-01] MEDS: carvediloL 25 MG TABLET PO SCH (16:27)
[2020-10-01] MEDS: hydrALAZINE 25 MG TABLET PO SCH (20:32)
[2020-10-01] MEDS ORDERED: ATORVASTATIN 20 MG TABLET PO SCH (21:00)
[2020-10-02] MEDS: HEPARIN 5,000 UNIT/1 ML VIAL SUBCUT SCH ×2 (01:54→16:51)
[2020-10-02 05:51] LABS: Calcium 8.3 MG/DL (8.5-10.1); Osmolality,Calculated 284.2 MOS/KG (273-304); Potassium 4.7 MMOL/L (3.5-5.1)
[2020-10-02 06:37] LABS: Basophils % 0.4 % (0.0-0.8); Eosinophils # 0.2 10*3/uL (0.0-0.87); Eosinophils % 2.4 % (0.00-10.9); Hematocrit 35.5 VOL% (42.0-52.0); Hemoglobin 10.9 GM/DL (14.0-18.0); Immature Granulocytes Absolute 0.08 #; Lymphocytes % 11.5 % (21.2-54.2); Mean Corpuscular HGB Conc 30.7 GM/DL (32-36); Mean Corpuscular Volume 98.3 FL (87-102); Mean Platelet Volume 9.5 FL (9.6-12.0); Monocytes % 9.1 % (1.7-12.7); Neutrophils % 75.6 % (38.7-73.9); Platelet Count 170 T/CUMM (130-400); Red Blood Count 3.61 MC/CUMM (3.8-5.5); Red Cell Distribution Width 17.2 % (9.3-17.3); White Blood Count 8.3 T/CUMM (4-12)
[2020-10-02 08:09] VITALS: BP 151/63
[2020-10-02] MEDS ORDERED: PANTOPRAZOLE 40 MG TABLET PO SCH (09:00)
[2020-10-02] MEDS ORDERED: amLODIPine 5 MG TABLET PO SCH (09:00)
[2020-10-02] MEDS ORDERED: FENOFIBRATE 145 MG TABLET PO SCH (09:00)
[2020-10-02] MEDS ORDERED: ASPIRIN CHEW 81 MG TABLET PO SCH (09:00)
[2020-10-02] MEDS ORDERED: CETIRIZINE 10 MG TABLET PO SCH (09:00)
[2020-10-02] MEDS: INSULIN LISPRO 100 UNIT/ML SUBCUT SCH ×3 (10:10→18:40)
[2020-10-02] MEDS: SEVELAMER CARBONATE 800 MG TABLET PO SCH ×3 (10:11→18:39)
[2020-10-02] MEDS: hydrALAZINE 25 MG TABLET PO SCH (10:12)
[2020-10-02] MEDS: carvediloL 25 MG TABLET PO SCH ×2 (10:12→18:39)
== END 2020-10-02 18:30 | disposition home or self-care (01) ==
LOC: EDBD → EDUNIT# → N.ED 08:54 → N.EDINP 08:54 → SUATTDRO 12:35 → N.EDINP 13:43 → N.TELEN 13:51
PROVIDERS: ADMIT Internal Medicine; ATTEND Internal Medicine

== ENCOUNTER 2020-10-08 12:19 | Observation (INO) ==
[2020-10-08] MEDS ORDERED: ASPIRIN 325 MG TABLET PO STA (13:26)
[2020-10-08 14:28] LABS: Bilirubin,Total 0.5 MG/DL (0.20-1.00); Calcium 8.4 MG/DL (8.5-10.1); Osmolality,Calculated 282.5 MOS/KG (273-304); Potassium 3.4 MMOL/L (3.5-5.1); Total Protein 7.1 G/DL (6.4-8.2)
[2020-10-08 14:34] LABS: Basophils % 0.5 % (0.0-0.8); Eosinophils # 0.2 10*3/uL (0.0-0.87); Eosinophils % 2.5 % (0.00-10.9); Hematocrit 37.6 VOL% (42.0-52.0); Hemoglobin 11.3 GM/DL (14.0-18.0); Immature Granulocytes % 1.1 %; Immature Granulocytes Absolute 0.07 #; Lymphocytes # 0.7 10*3/uL (1.4-4.0); Lymphocytes % 10.8 % (21.2-54.2); Mean Corpuscular HGB Conc 30.1 GM/DL (32-36); Mean Corpuscular Volume 99.2 FL (87-102); Mean Platelet Volume 10.1 FL (9.6-12.0); Monocytes % 12.6 % (1.7-12.7); Neutrophils % 72.5 % (38.7-73.9); Platelet Count 168 T/CUMM (130-400); Red Blood Count 3.79 MC/CUMM (3.8-5.5); Red Cell Distribution Width 16.5 % (9.3-17.3); White Blood Count 6.5 T/CUMM (4-12)
[2020-10-08] MEDS ORDERED: GLUCAGON 1 MG VIAL IM PRN (15:14)
[2020-10-08] MEDS ORDERED: DEXTROSE 50% 25 GM/50 ML VIAL IV PRN (15:14)
[2020-10-08] MEDS ORDERED: NON-FORMULARY MEDICATION (Insulin Degludec [Tresiba Flextouch U-200] 200 unit/mL (3 mL) In SUBCUT PRN (15:19)
[2020-10-08] MEDS: SEVELAMER CARBONATE 800 MG TABLET PO SCH (16:39)
[2020-10-08] MEDS: HEPARIN 5,000 UNIT/1 ML VIAL SUBCUT SCH ×2 (16:39→22:35)
[2020-10-08] MEDS: hydrALAZINE 25 MG TABLET PO SCH (22:34)
[2020-10-08] MEDS: carvediloL 25 MG TABLET PO SCH (22:35)
[2020-10-09] MEDS ORDERED: amLODIPine 5 MG TABLET PO SCH (09:00)
[2020-10-09] MEDS ORDERED: FENOFIBRATE 145 MG TABLET PO SCH (09:00)
[2020-10-09] MEDS ORDERED: ATORVASTATIN 20 MG TABLET PO SCH (09:00)
[2020-10-09] MEDS ORDERED: CETIRIZINE 10 MG TABLET PO SCH (09:00)
[2020-10-09] MEDS ORDERED: PANTOPRAZOLE 40 MG TABLET PO SCH (09:00)
[2020-10-09] MEDS: HEPARIN 5,000 UNIT/1 ML VIAL SUBCUT SCH (09:36)
[2020-10-09] MEDS: carvediloL 25 MG TABLET PO SCH (09:36)
[2020-10-09] MEDS: SEVELAMER CARBONATE 800 MG TABLET PO SCH (09:36)
[2020-10-09] MEDS: hydrALAZINE 25 MG TABLET PO SCH (09:36)
[2020-10-09 10:19] VITALS: BP 140/78
== END 2020-10-09 10:05 | disposition home or self-care (01) ==
LOC: EDUNIT# → EDBD → N.ED 12:19 → N.TELEN 12:19 → SUATTDRO 15:14 → N.TELEN 16:15
PROVIDERS: ADMIT Internal Medicine; ATTEND Internal Medicine Geriatric Medicine

== ENCOUNTER 2021-05-01 09:58 | Inpatient (IN) ==
[2021-05-01] MEDS ORDERED: PANTOPRAZOLE 40 MG VIAL IV STA (10:34)
[2021-05-01 11:37] LABS: Basophils % 0.1 % (0.0-0.8); Eosinophils # 0.3 10*3/uL (0.0-0.87); Eosinophils % 2.6 % (0.00-10.9); Immature Granulocytes % 0.9 %; Immature Granulocytes Absolute 0.09 #; Lymphocytes # 1.3 10*3/uL (1.4-4.0); Lymphocytes % 13.4 % (21.2-54.2); Mean Corpuscular HGB Conc 29.9 GM/DL (32-36); Mean Corpuscular Volume 105.5 FL (87-102); Mean Platelet Volume 9.9 FL (9.6-12.0); Monocytes % 10.3 % (1.7-12.7); Neutrophils % 72.7 % (38.7-73.9); Platelet Count 175 T/CUMM (130-400); Red Blood Count 1.46 MC/CUMM (3.8-5.5); Red Cell Distribution Width 15.5 % (9.3-17.3); White Blood Count 9.6 T/CUMM (4-12)
[2021-05-01 11:42] LABS: Hematocrit 15.4 VOL% (42.0-52.0); Hemoglobin 4.6 GM/DL (14.0-18.0)
[2021-05-01 11:47] LABS: INR 1.2; PT Patient Result 12.9 SECS (10.5-12.0)
[2021-05-01 11:53] LABS: Alanine Aminotransferase 17 U/L (16-61); Albumin 2.8 G/DL (3.4-5.0); Alkaline Phosphatase 80 U/L (45-117); Aspartate Amino Transferase 23 U/L (0-37); Bilirubin,Total < 0.39 MG/DL (0.20-1.00); Blood Urea Nitrogen 35 MG/DL (7-18); Calcium 8.5 MG/DL (8.5-10.1); Carbon Dioxide 35 MMOL/L (21-32); Estimated Glom Filtration Rate 20 ML/MIN; Glucose 147 MG/DL (74-106); Potassium 3.1 MMOL/L (3.5-5.1); Sodium 136 MMOL/L (136-145); Total Protein 6.6 G/DL (6.4-8.2)
[2021-05-01] MEDS ORDERED: SODIUM CHLORIDE 0.9% 1,000 ML IV PRN (12:06)
[2021-05-01] MEDS ORDERED: ONDANSETRON 4 MG/2 ML VIAL IV PRN (12:27)
[2021-05-01] MEDS ORDERED: DOCUSATE SODIUM 100 MG CAPSULE PO PRN (12:27)
[2021-05-01] MEDS ORDERED: DEXTROSE 10% 25 GM/250 ML BAG IV PRN (12:27)
[2021-05-01] MEDS ORDERED: GLUCAGON 1 MG VIAL IM PRN (12:27)
[2021-05-01] MEDS ORDERED: ACETAMINOPHEN 325 MG TABLET PO PRN (12:27)
[2021-05-01 16:40] LABS: Hematocrit 18.1 VOL% (42.0-52.0)
[2021-05-01 16:44] LABS: Hemoglobin 5.3 GM/DL (14.0-18.0)
[2021-05-01] MEDS: PANTOPRAZOLE 40 MG VIAL IV SCH (21:45)
[2021-05-01] MEDS: INSULIN REGULAR 100 UNIT/ML SUBCUT SCH (21:46)
[2021-05-02] MEDS: INSULIN REGULAR 100 UNIT/ML SUBCUT SCH ×4 (00:43→18:24)
[2021-05-02 01:47] LABS: Hematocrit 21.4 VOL% (42.0-52.0); Hemoglobin 6.5 GM/DL (14.0-18.0)
[2021-05-02 06:26] LABS: Basophils % 0.4 % (0.0-0.8); Eosinophils # 0.3 10*3/uL (0.0-0.87); Eosinophils % 2.5 % (0.00-10.9); Hematocrit 23.5 VOL% (42.0-52.0); Hemoglobin 7.1 GM/DL (14.0-18.0); Immature Granulocytes % 0.8 %; Immature Granulocytes Absolute 0.08 #; Lymphocytes # 1.1 10*3/uL (1.4-4.0); Lymphocytes % 10.3 % (21.2-54.2); Mean Corpuscular HGB Conc 30.2 GM/DL (32-36); Mean Corpuscular Volume 103.5 FL (87-102); Monocytes % 9.4 % (1.7-12.7); Neutrophils % 76.6 % (38.7-73.9); Platelet Count 189 T/CUMM (130-400); Red Blood Count 2.27 MC/CUMM (3.8-5.5); Red Cell Distribution Width 16.2 % (9.3-17.3); White Blood Count 10.6 T/CUMM (4-12)
[2021-05-02 06:41] LABS: Calcium 8.1 MG/DL (8.5-10.1); Potassium 3.6 MMOL/L (3.5-5.1)
[2021-05-02 06:44] LABS: Vitamin B12 475 PG/ML (211-911)
[2021-05-02 07:44] LABS: Sedimentation Rate-Westergren 97 MM/HR (0-20)
[2021-05-02] MEDS: SODIUM CHLORIDE 0.9% 1,000 ML IV SCH ×2 (08:17→10:26)
[2021-05-02] MEDS ORDERED: SODIUM CHLORIDE 0.9% 1,000 ML IV PRN (08:35)
[2021-05-02 09:04] LABS: Hemoglobin A1 (Alkaline) 97.5 % (96.5-98.5); Hemoglobin A2 (Alkaline) 2.5 % (1.5-3.5)
[2021-05-02] MEDS ORDERED: propofoL 200 MG/20 ML VIAL IV ONE (10:08)
[2021-05-02] MEDS ORDERED: LIDOCAINE 2% 5 ML VIAL ONE (10:08)
[2021-05-02] MEDS: PANTOPRAZOLE 40 MG VIAL IV SCH ×2 (11:07→21:03)
[2021-05-02 12:53] LABS: Hematocrit 19.2 VOL% (42.0-52.0)
[2021-05-02] MEDS ORDERED: hydrOXYzine HCL 25 MG TABLET PO PRN (14:58)
[2021-05-02 19:22] LABS: Hemoglobin 8.8 GM/DL (14.0-18.0)
[2021-05-02] MEDS: carvediloL 12.5 MG TABLET PO SCH (21:00)
[2021-05-03] MEDS: INSULIN REGULAR 100 UNIT/ML SUBCUT SCH ×5 (00:48→21:14)
[2021-05-03 05:50] LABS: Hematocrit 25.5 VOL% (42.0-52.0); Hemoglobin 8.1 GM/DL (14.0-18.0)
[2021-05-03 05:51] LABS: Basophils % 0.4 % (0.0-0.8); Eosinophils # 0.2 10*3/uL (0.0-0.87); Hematocrit 25.8 VOL% (42.0-52.0); Hemoglobin 8.1 GM/DL (14.0-18.0); Immature Granulocytes % 0.9 %; Immature Granulocytes Absolute 0.07 #; Lymphocytes % 11.8 % (21.2-54.2); Mean Corpuscular HGB Conc 31.4 GM/DL (32-36); Mean Corpuscular Volume 99.6 FL (87-102); Mean Platelet Volume 9.9 FL (9.6-12.0); Monocytes % 10.8 % (1.7-12.7); Neutrophils % 74.1 % (38.7-73.9); Platelet Count 160 T/CUMM (130-400); Red Blood Count 2.59 MC/CUMM (3.8-5.5); Red Cell Distribution Width 15.4 % (9.3-17.3)
[2021-05-03 06:08] LABS: Calcium 8.1 MG/DL (8.5-10.1); Osmolality,Calculated 293.7 MOS/KG (273-304); Potassium 3.7 MMOL/L (3.5-5.1)
[2021-05-03] MEDS: CETIRIZINE 10 MG TABLET PO SCH (12:42)
[2021-05-03] MEDS: ATORVASTATIN 20 MG TABLET PO SCH (12:42)
[2021-05-03] MEDS: carvediloL 12.5 MG TABLET PO SCH ×2 (12:42→21:13)
[2021-05-03] MEDS: SODIUM CHLORIDE 0.9% 1,000 ML IV SCH (12:43)
[2021-05-03] MEDS: PANTOPRAZOLE 40 MG VIAL IV SCH ×2 (12:43→21:17)
[2021-05-03] MEDS: CHOLECALCIFEROL 1,000 UNIT TABLET PO SCH (12:51)
[2021-05-03 16:06] LABS: Soluble Transf Receptor (sTfR) 3.4 mg/L (1.8 - 4.6)
[2021-05-04 05:13] LABS: Basophils % 0.3 % (0.0-0.8); Eosinophils # 0.2 10*3/uL (0.0-0.87); Eosinophils % 2.6 % (0.00-10.9); Hematocrit 25.3 VOL% (42.0-52.0); Hemoglobin 7.8 GM/DL (14.0-18.0); Immature Granulocytes % 0.7 %; Immature Granulocytes Absolute 0.05 #; Lymphocytes % 12.7 % (21.2-54.2); Mean Corpuscular HGB Conc 30.8 GM/DL (32-36); Mean Corpuscular Volume 100.8 FL (87-102); Mean Platelet Volume 9.8 FL (9.6-12.0); Monocytes % 11.2 % (1.7-12.7); Neutrophils % 72.5 % (38.7-73.9); Platelet Count 167 T/CUMM (130-400); Red Blood Count 2.51 MC/CUMM (3.8-5.5); Red Cell Distribution Width 14.8 % (9.3-17.3); White Blood Count 7.6 T/CUMM (4-12)
[2021-05-04 05:31] LABS: Calcium 7.6 MG/DL (8.5-10.1); Osmolality,Calculated 286.5 MOS/KG (273-304); Potassium 3.6 MMOL/L (3.5-5.1)
[2021-05-04] MEDS: CHOLECALCIFEROL 1,000 UNIT TABLET PO SCH (09:23)
[2021-05-04] MEDS: carvediloL 12.5 MG TABLET PO SCH ×2 (09:24→20:43)
[2021-05-04] MEDS: PANTOPRAZOLE 40 MG VIAL IV SCH ×2 (09:24→20:43)
[2021-05-04] MEDS: CETIRIZINE 10 MG TABLET PO SCH (09:24)
[2021-05-04] MEDS: ATORVASTATIN 20 MG TABLET PO SCH (09:24)
[2021-05-04] MEDS: INSULIN REGULAR 100 UNIT/ML SUBCUT SCH ×4 (09:49→20:39)
[2021-05-04] MEDS: SODIUM CHLORIDE 0.9% 1,000 ML IV SCH (09:49)
[2021-05-05 04:53] LABS: Basophils % 0.2 % (0.0-0.8); Eosinophils # 0.2 10*3/uL (0.0-0.87); Eosinophils % 2.7 % (0.00-10.9); Hematocrit 23.3 VOL% (42.0-52.0); Hemoglobin 7.3 GM/DL (14.0-18.0); Immature Granulocytes % 0.7 %; Immature Granulocytes Absolute 0.06 #; Lymphocytes # 1.2 10*3/uL (1.4-4.0); Lymphocytes % 14.8 % (21.2-54.2); Mean Corpuscular HGB Conc 31.3 GM/DL (32-36); Mean Corpuscular Volume 100.4 FL (87-102); Mean Platelet Volume 9.9 FL (9.6-12.0); Monocytes % 9.6 % (1.7-12.7); Platelet Count 174 T/CUMM (130-400); Red Blood Count 2.32 MC/CUMM (3.8-5.5); Red Cell Distribution Width 14.8 % (9.3-17.3); White Blood Count 8.2 T/CUMM (4-12)
[2021-05-05 05:13] LABS: Calcium 7.9 MG/DL (8.5-10.1); Potassium 4.1 MMOL/L (3.5-5.1)
[2021-05-05] MEDS: INSULIN REGULAR 100 UNIT/ML SUBCUT SCH ×4 (09:28→23:28)
[2021-05-05] MEDS ORDERED: GLUCAGON 1 MG VIAL IM PRN (09:59)
[2021-05-05] MEDS ORDERED: DEXTROSE 10% 250 ML BAG IV PRN (09:59)
[2021-05-05] MEDS: carvediloL 12.5 MG TABLET PO SCH ×2 (10:51→22:35)
[2021-05-05] MEDS: PANTOPRAZOLE 40 MG VIAL IV SCH ×2 (10:55→22:00)
[2021-05-05] MEDS: CHOLECALCIFEROL 1,000 UNIT TABLET PO SCH (10:56)
[2021-05-05] MEDS: ATORVASTATIN 20 MG TABLET PO SCH (10:56)
[2021-05-05] MEDS: CETIRIZINE 10 MG TABLET PO SCH (10:56)
[2021-05-06 04:55] LABS: Basophils % 0.2 % (0.0-0.8); Eosinophils # 0.2 10*3/uL (0.0-0.87); Eosinophils % 2.6 % (0.00-10.9); Hematocrit 21.6 VOL% (42.0-52.0); Hemoglobin 6.7 GM/DL (14.0-18.0); Immature Granulocytes % 0.6 %; Immature Granulocytes Absolute 0.06 #; Lymphocytes # 1.2 10*3/uL (1.4-4.0); Lymphocytes % 13.1 % (21.2-54.2); Mean Platelet Volume 9.9 FL (9.6-12.0); Monocytes % 9.2 % (1.7-12.7); Neutrophils % 74.3 % (38.7-73.9); Platelet Count 193 T/CUMM (130-400); Red Blood Count 2.16 MC/CUMM (3.8-5.5); Red Cell Distribution Width 14.5 % (9.3-17.3); White Blood Count 9.3 T/CUMM (4-12)
[2021-05-06 05:20] LABS: Calcium 7.7 MG/DL (8.5-10.1); Osmolality,Calculated 298.2 MOS/KG (273-304); Potassium 4.2 MMOL/L (3.5-5.1)
[2021-05-06] MEDS ORDERED: SODIUM CHLORIDE 0.9% 1,000 ML IV PRN (08:23)
[2021-05-06] MEDS: INSULIN REGULAR 100 UNIT/ML SUBCUT SCH ×4 (08:51→22:03)
[2021-05-06] MEDS: CHOLECALCIFEROL 1,000 UNIT TABLET PO SCH (09:32)
[2021-05-06] MEDS: CETIRIZINE 10 MG TABLET PO SCH (09:32)
[2021-05-06] MEDS: ATORVASTATIN 20 MG TABLET PO SCH (09:32)
[2021-05-06] MEDS: PANTOPRAZOLE 40 MG VIAL IV SCH ×2 (09:35→21:48)
[2021-05-06] MEDS: amLODIPine 10 MG TABLET PO SCH (15:54)
[2021-05-07 01:24] LABS: Hematocrit 25.1 VOL% (42.0-52.0); Hemoglobin 7.9 GM/DL (14.0-18.0)
[2021-05-07 01:26] LABS: Basophils % 0.2 % (0.0-0.8); Eosinophils # 0.2 10*3/uL (0.0-0.87); Eosinophils % 2.1 % (0.00-10.9); Hemoglobin 7.8 GM/DL (14.0-18.0); Immature Granulocytes % 0.6 %; Immature Granulocytes Absolute 0.05 #; Lymphocytes # 1.2 10*3/uL (1.4-4.0); Lymphocytes % 13.2 % (21.2-54.2); Mean Corpuscular HGB Conc 31.2 GM/DL (32-36); Mean Corpuscular Volume 98.4 FL (87-102); Mean Platelet Volume 9.6 FL (9.6-12.0); Neutrophils % 73.9 % (38.7-73.9); Platelet Count 190 T/CUMM (130-400); Red Blood Count 2.54 MC/CUMM (3.8-5.5); Red Cell Distribution Width 14.1 % (9.3-17.3); White Blood Count 8.9 T/CUMM (4-12)
[2021-05-07 01:43] LABS: Calcium 7.5 MG/DL (8.5-10.1)
[2021-05-07 01:45] LABS: Calcium 7.5 MG/DL (8.5-10.1)
[2021-05-07] MEDS: INSULIN REGULAR 100 UNIT/ML SUBCUT SCH ×3 (09:09→22:46)
[2021-05-07] MEDS: CHOLECALCIFEROL 1,000 UNIT TABLET PO SCH (10:09)
[2021-05-07] MEDS: PANTOPRAZOLE 40 MG VIAL IV SCH ×2 (10:09→22:09)
[2021-05-07] MEDS: amLODIPine 10 MG TABLET PO SCH (10:09)
[2021-05-07] MEDS: CETIRIZINE 10 MG TABLET PO SCH (10:09)
[2021-05-07] MEDS: FENOFIBRATE 145 MG TABLET PO SCH (10:09)
[2021-05-07] MEDS: ATORVASTATIN 20 MG TABLET PO SCH (10:10)
[2021-05-07] MEDS ORDERED: MAGNESIUM SULF RIDER 2 GM/50 ML PREMIX IV ONE (10:13)
[2021-05-07] MEDS: diphenhydrAMINE CAP 50 MG CAPSULE PO ONE ×2 (13:50→16:51)
[2021-05-07] MEDS: DIAZEPAM 5 MG TABLET PO ONE ×2 (13:50→16:51)
[2021-05-07] MEDS ORDERED: LIDOCAINE 1% 20 ML VIAL ONE (14:04)
[2021-05-07] MEDS ORDERED: HEPARIN/NACL 0.9% 2 UNITS/ML 1,000 UNIT/500 ML BAG IV ONE (14:04)
[2021-05-07] MEDS ORDERED: ceFAZolin 1,000 MG VIAL ONE (14:05)
[2021-05-07] MEDS ORDERED: fentaNYL 100 MCG/2 ML VIAL ONE (14:05)
[2021-05-07] MEDS ORDERED: MIDAZOLAM 2 MG/2 ML VIAL ONE ×2 (14:05→15:43)
[2021-05-07] MEDS ORDERED: ceFAZolin 1,000 MG VIAL IRRIG ONE (14:30)
[2021-05-07] MEDS ORDERED: TISSUE ADHESIVE 1 EACH APPLICATOR TOP ONE (15:35)
[2021-05-08 05:43] LABS: Basophils % 0.3 % (0.0-0.8); Eosinophils # 0.2 10*3/uL (0.0-0.87); Eosinophils % 1.9 % (0.00-10.9); Hematocrit 23.2 VOL% (42.0-52.0); Hemoglobin 7.4 GM/DL (14.0-18.0); Immature Granulocytes % 0.6 %; Immature Granulocytes Absolute 0.06 #; Lymphocytes # 1.1 10*3/uL (1.4-4.0); Mean Corpuscular HGB Conc 31.9 GM/DL (32-36); Mean Corpuscular Volume 99.1 FL (87-102); Mean Platelet Volume 9.6 FL (9.6-12.0); Monocytes % 11.3 % (1.7-12.7); Neutrophils % 74.9 % (38.7-73.9); Platelet Count 222 T/CUMM (130-400); Red Blood Count 2.34 MC/CUMM (3.8-5.5); White Blood Count 10.3 T/CUMM (4-12)
[2021-05-08 06:02] LABS: Calcium 7.4 MG/DL (8.5-10.1); Osmolality,Calculated 305.8 MOS/KG (273-304); Potassium 4.4 MMOL/L (3.5-5.1)
[2021-05-08] MEDS: INSULIN REGULAR 100 UNIT/ML SUBCUT SCH ×4 (08:01→21:28)
[2021-05-08] MEDS: PANTOPRAZOLE 40 MG VIAL IV SCH ×2 (08:33→21:29)
[2021-05-08] MEDS: ATORVASTATIN 20 MG TABLET PO SCH (08:33)
[2021-05-08] MEDS: amLODIPine 10 MG TABLET PO SCH (08:34)
[2021-05-08] MEDS: CHOLECALCIFEROL 1,000 UNIT TABLET PO SCH (08:34)
[2021-05-08] MEDS: CETIRIZINE 10 MG TABLET PO SCH (08:34)
[2021-05-08] MEDS: FENOFIBRATE 145 MG TABLET PO SCH (08:42)
[2021-05-08] MEDS: carvediloL 12.5 MG TABLET PO SCH (21:28)
[2021-05-09 05:21] LABS: Basophils % 0.4 % (0.0-0.8); Eosinophils # 0.2 10*3/uL (0.0-0.87); Eosinophils % 1.9 % (0.00-10.9); Hematocrit 23.8 VOL% (42.0-52.0); Hemoglobin 7.4 GM/DL (14.0-18.0); Immature Granulocytes % 0.7 %; Immature Granulocytes Absolute 0.06 #; Lymphocytes % 11.9 % (21.2-54.2); Mean Corpuscular HGB Conc 31.1 GM/DL (32-36); Mean Corpuscular Volume 97.1 FL (87-102); Mean Platelet Volume 9.6 FL (9.6-12.0); Monocytes % 11.8 % (1.7-12.7); Neutrophils % 73.3 % (38.7-73.9); Platelet Count 199 T/CUMM (130-400); Red Blood Count 2.45 MC/CUMM (3.8-5.5); Red Cell Distribution Width 14.6 % (9.3-17.3); White Blood Count 8.5 T/CUMM (4-12)
[2021-05-09 06:02] LABS: Calcium 7.3 MG/DL (8.5-10.1); Osmolality,Calculated 298.7 MOS/KG (273-304); Potassium 4.5 MMOL/L (3.5-5.1)
[2021-05-09] MEDS ORDERED: SODIUM CHLORIDE 0.9% 1,000 ML IV SCH (08:00)
[2021-05-09] MEDS: INSULIN REGULAR 100 UNIT/ML SUBCUT SCH ×2 (09:05→14:02)
[2021-05-09] MEDS: LACTATED RINGERS 1,000 ML IV SCH ×2 (09:57→14:02)
[2021-05-09] MEDS: carvediloL 12.5 MG TABLET PO SCH (09:58)
[2021-05-09] MEDS: amLODIPine 10 MG TABLET PO SCH (09:58)
[2021-05-09] MEDS: PANTOPRAZOLE 40 MG VIAL IV SCH (10:05)
[2021-05-09] MEDS ORDERED: LIDOCAINE 2% 5 ML VIAL ONE (11:54)
[2021-05-09] MEDS ORDERED: propofoL 200 MG/20 ML VIAL IV ONE (11:54)
[2021-05-09 12:40] VITALS: BP 157/43
[2021-05-09] MEDS: CETIRIZINE 10 MG TABLET PO SCH (13:37)
[2021-05-09] MEDS: ATORVASTATIN 20 MG TABLET PO SCH (13:37)
[2021-05-09] MEDS: CHOLECALCIFEROL 1,000 UNIT TABLET PO SCH (13:37)
[2021-05-09] MEDS: FENOFIBRATE 145 MG TABLET PO SCH (13:37)
== END 2021-05-09 15:23 | disposition home or self-care (01) | DRG 981 ==
LOC: N.ED 09:58 → SUATTDRO 12:02 → N.EDINP 12:02 → N.TELES 20:17
PROVIDERS: ADMIT Hospitalist; ATTEND Emergency Medicine

== ENCOUNTER 2021-05-13 17:54 | Inpatient (IN) ==
[2021-05-13] MEDS ORDERED: PANTOPRAZOLE 40 MG VIAL IV STA (18:32)
[2021-05-13 19:47] LABS: Basophils % 0.2 % (0.0-0.8); Hematocrit 20.1 VOL% (42.0-52.0); Immature Granulocytes % 0.6 %; Immature Granulocytes Absolute 0.07 #; Lymphocytes # 0.7 10*3/uL (1.4-4.0); Lymphocytes % 5.9 % (21.2-54.2); Mean Corpuscular HGB Conc 30.8 GM/DL (32-36); Mean Corpuscular Volume 99.5 FL (87-102); Mean Platelet Volume 9.7 FL (9.6-12.0); Monocytes % 7.7 % (1.7-12.7); Neutrophils % 85.6 % (38.7-73.9); Platelet Count 189 T/CUMM (130-400); Red Blood Count 2.02 MC/CUMM (3.8-5.5); Red Cell Distribution Width 14.3 % (9.3-17.3); White Blood Count 12.2 T/CUMM (4-12)
[2021-05-13 20:00] LABS: Hemoglobin 6.2 GM/DL (14.0-18.0)
[2021-05-13 20:05] LABS: Albumin 2.2 G/DL (3.4-5.0); Bilirubin,Total 0.4 MG/DL (0.20-1.00); Calcium 7.6 MG/DL (8.5-10.1); Potassium 3.3 MMOL/L (3.5-5.1); Total Protein 5.7 G/DL (6.4-8.2)
[2021-05-13 20:12] LABS: INR 1.2; PT Patient Result 13.3 SECS (10.5-12.0)
[2021-05-13] MEDS ORDERED: SODIUM CHLORIDE 0.9% 1,000 ML IV PRN (20:13)
[2021-05-13] MEDS ORDERED: GLUCAGON 1 MG VIAL IM PRN (21:22)
[2021-05-13] MEDS ORDERED: SIMETHICONE CHEW 125 MG TABLET PO PRN (21:23)
[2021-05-13] MEDS ORDERED: ONDANSETRON 4 MG/2 ML VIAL IV PRN (21:23)
[2021-05-13] MEDS ORDERED: ACETAMINOPHEN 325 MG TABLET PO PRN (21:23)
[2021-05-13] MEDS ORDERED: hydrALAZINE 20 MG/1 ML VIAL IV PRN (21:23)
[2021-05-13] MEDS ORDERED: DEXTROSE 10% 250 ML BAG IV PRN (21:32)
[2021-05-13] MEDS ORDERED: HYDROmorphone 2 MG/1 ML VIAL IV PRN (22:56)
[2021-05-14] MEDS ORDERED: CIPROFLOXACIN INJ 400 MG/200 ML PREMIX IV SCH (03:00)
[2021-05-14 06:17] LABS: Albumin 2.2 G/DL (3.4-5.0); Bilirubin,Total 0.6 MG/DL (0.20-1.00); Osmolality,Calculated 284.2 MOS/KG (273-304); Potassium 3.1 MMOL/L (3.5-5.1); Total Protein 5.8 G/DL (6.4-8.2)
[2021-05-14 06:37] LABS: Basophils % 0.2 % (0.0-0.8); Eosinophils # 0.1 10*3/uL (0.0-0.87); Eosinophils % 0.6 % (0.00-10.9); Hematocrit 20.1 VOL% (42.0-52.0); Hemoglobin 6.5 GM/DL (14.0-18.0); Immature Granulocytes Absolute 0.11 #; Lymphocytes # 0.8 10*3/uL (1.4-4.0); Lymphocytes % 7.4 % (21.2-54.2); Mean Corpuscular HGB Conc 32.3 GM/DL (32-36); Mean Corpuscular Volume 92.2 FL (87-102); Monocytes % 7.5 % (1.7-12.7); Neutrophils % 83.3 % (38.7-73.9); Platelet Count 171 T/CUMM (130-400); Red Blood Count 2.18 MC/CUMM (3.8-5.5); Red Cell Distribution Width 16.9 % (9.3-17.3); White Blood Count 11.2 T/CUMM (4-12)
[2021-05-14] MEDS: metroNIDAZOLE INJ 500 MG/100 ML PREMIX IV SCH ×3 (07:02→23:36)
[2021-05-14] MEDS ORDERED: SODIUM CHLORIDE 0.9% 1,000 ML IV PRN ×2 (07:18→11:43)
[2021-05-14] MEDS: INSULIN REGULAR 100 UNIT/ML SUBCUT SCH ×4 (07:58→20:57)
[2021-05-14] MEDS ORDERED: POTASSIUM CHLORIDE RIDER 10 MEQ/100 ML PREMIX IV PRN (08:10)
[2021-05-14] MEDS: carvediloL 12.5 MG TABLET PO SCH ×2 (08:52→20:57)
[2021-05-14] MEDS: ATORVASTATIN 20 MG TABLET PO SCH (08:52)
[2021-05-14] MEDS: FENOFIBRATE 145 MG TABLET PO SCH (08:52)
[2021-05-14] MEDS: amLODIPine 10 MG TABLET PO SCH (08:53)
[2021-05-14] MEDS: PANTOPRAZOLE 40 MG VIAL IV SCH ×2 (08:58→20:57)
[2021-05-14 10:35] LABS: Hematocrit 20.1 VOL% (42.0-52.0)
[2021-05-14 10:39] LABS: Hemoglobin 6.4 GM/DL (14.0-18.0)
[2021-05-14] MEDS: cefTRIAXone 1,000 MG in SODIUM CHLORIDE 0.9% 100 ML IV SCH (11:42)
[2021-05-14] MEDS ORDERED: POTASSIUM CHLORIDE 20 MEQ TABLET PO PRN (12:59)
[2021-05-14] MEDS ORDERED: POTASSIUM CHLORIDE 20 MEQ TABLET PO ONE (13:28)
[2021-05-14] MEDS ORDERED: POTASSIUM BICARB EFFERVESCENT 20 MEQ TAB.EFF PER TUBE PRN (13:34)
[2021-05-14] MEDS: POTASSIUM CHLORIDE 20 MEQ TABLET PO PRN ×2 (13:52→15:26)
[2021-05-14 17:46] LABS: Hematocrit 25.5 VOL% (42.0-52.0)
[2021-05-14 17:50] LABS: Hemoglobin 8.2 GM/DL (14.0-18.0)
[2021-05-14 23:04] LABS: Hemoglobin 7.1 GM/DL (14.0-18.0)
[2021-05-15 05:23] LABS: Basophils % 0.3 % (0.0-0.8); Eosinophils # 0.2 10*3/uL (0.0-0.87); Eosinophils % 2.3 % (0.00-10.9); Hematocrit 21.5 VOL% (42.0-52.0); Hemoglobin 6.8 GM/DL (14.0-18.0); Immature Granulocytes % 1.1 %; Lymphocytes # 0.8 10*3/uL (1.4-4.0); Lymphocytes % 8.5 % (21.2-54.2); Mean Corpuscular HGB Conc 31.6 GM/DL (32-36); Mean Corpuscular Volume 93.5 FL (87-102); Mean Platelet Volume 9.8 FL (9.6-12.0); Monocytes % 10.3 % (1.7-12.7); Neutrophils % 77.5 % (38.7-73.9); Platelet Count 184 T/CUMM (130-400); Red Cell Distribution Width 16.8 % (9.3-17.3); White Blood Count 9.4 T/CUMM (4-12)
[2021-05-15 05:43] LABS: Calcium 8.1 MG/DL (8.5-10.1); Osmolality,Calculated 294.1 MOS/KG (273-304); Potassium 3.4 MMOL/L (3.5-5.1)
[2021-05-15] MEDS: metroNIDAZOLE INJ 500 MG/100 ML PREMIX IV SCH ×3 (06:32→22:43)
[2021-05-15] MEDS: INSULIN REGULAR 100 UNIT/ML SUBCUT SCH ×4 (09:50→20:43)
[2021-05-15 10:28] LABS: Hematocrit 24.8 VOL% (42.0-52.0)
[2021-05-15] MEDS: carvediloL 12.5 MG TABLET PO SCH ×2 (12:54→20:44)
[2021-05-15] MEDS: PANTOPRAZOLE 40 MG VIAL IV SCH ×2 (12:54→20:43)
[2021-05-15] MEDS: FENOFIBRATE 145 MG TABLET PO SCH (13:25)
[2021-05-15] MEDS: amLODIPine 10 MG TABLET PO SCH (13:25)
[2021-05-15] MEDS: ATORVASTATIN 20 MG TABLET PO SCH (13:25)
[2021-05-15] MEDS ORDERED: POTASSIUM CHLORIDE 20 MEQ TABLET PO ONE (14:30)
[2021-05-15] MEDS: cefTRIAXone 1,000 MG in SODIUM CHLORIDE 0.9% 100 ML IV SCH (14:51)
[2021-05-15] MEDS ORDERED: ASPIRIN EC 81 MG TABLET PO SCH (16:00)
[2021-05-15 17:32] LABS: Hematocrit 26.7 VOL% (42.0-52.0); Hemoglobin 8.5 GM/DL (14.0-18.0)
[2021-05-15] MEDS ORDERED: KETOROLAC 15 MG/1 ML VIAL IV ONE (20:10)
[2021-05-15 21:57] LABS: Hematocrit 24.3 VOL% (42.0-52.0); Hemoglobin 7.7 GM/DL (14.0-18.0)
[2021-05-16] MEDS: metroNIDAZOLE INJ 500 MG/100 ML PREMIX IV SCH ×2 (06:00→15:31)
[2021-05-16 06:37] LABS: Basophils % 0.3 % (0.0-0.8); Eosinophils # 0.1 10*3/uL (0.0-0.87); Eosinophils % 0.8 % (0.00-10.9); Hematocrit 23.7 VOL% (42.0-52.0); Hemoglobin 7.6 GM/DL (14.0-18.0); Immature Granulocytes % 0.9 %; Immature Granulocytes Absolute 0.14 #; Lymphocytes # 0.9 10*3/uL (1.4-4.0); Lymphocytes % 5.8 % (21.2-54.2); Mean Corpuscular HGB Conc 32.1 GM/DL (32-36); Mean Corpuscular Volume 91.9 FL (87-102); Monocytes % 13.5 % (1.7-12.7); Neutrophils % 78.7 % (38.7-73.9); Platelet Count 190 T/CUMM (130-400); Red Blood Count 2.58 MC/CUMM (3.8-5.5); Red Cell Distribution Width 16.6 % (9.3-17.3); White Blood Count 15.9 T/CUMM (4-12)
[2021-05-16 06:53] LABS: Calcium 7.5 MG/DL (8.5-10.1); Osmolality,Calculated 292.7 MOS/KG (273-304); Potassium 3.8 MMOL/L (3.5-5.1)
[2021-05-16] MEDS: FENOFIBRATE 145 MG TABLET PO SCH (08:37)
[2021-05-16] MEDS: amLODIPine 10 MG TABLET PO SCH (08:37)
[2021-05-16] MEDS: carvediloL 12.5 MG TABLET PO SCH ×2 (08:37→21:02)
[2021-05-16] MEDS: ATORVASTATIN 20 MG TABLET PO SCH (08:37)
[2021-05-16] MEDS: PANTOPRAZOLE 40 MG VIAL IV SCH ×2 (08:37→21:06)
[2021-05-16] MEDS: INSULIN REGULAR 100 UNIT/ML SUBCUT SCH ×4 (08:37→21:07)
[2021-05-16 10:30] LABS: Hematocrit 22.7 VOL% (42.0-52.0); Hemoglobin 7.2 GM/DL (14.0-18.0)
[2021-05-16] MEDS: cefTRIAXone 1,000 MG in SODIUM CHLORIDE 0.9% 100 ML IV SCH (11:26)
[2021-05-16 16:45] LABS: Hematocrit 20.7 VOL% (42.0-52.0); Hemoglobin 6.5 GM/DL (14.0-18.0)
[2021-05-16] MEDS ORDERED: SODIUM CHLORIDE 0.9% 1,000 ML IV PRN (17:10)
[2021-05-17] MEDS: metroNIDAZOLE INJ 500 MG/100 ML PREMIX IV SCH ×4 (00:10→21:00)
[2021-05-17 00:53] LABS: Hematocrit 22.6 VOL% (42.0-52.0); Hemoglobin 7.3 GM/DL (14.0-18.0)
[2021-05-17 05:52] LABS: Basophils % 0.3 % (0.0-0.8); Eosinophils # 0.3 10*3/uL (0.0-0.87); Eosinophils % 2.7 % (0.00-10.9); Hematocrit 23.1 VOL% (42.0-52.0); Hemoglobin 7.2 GM/DL (14.0-18.0); Immature Granulocytes % 0.8 %; Immature Granulocytes Absolute 0.09 #; Lymphocytes # 1.3 10*3/uL (1.4-4.0); Lymphocytes % 12.3 % (21.2-54.2); Mean Corpuscular HGB Conc 31.2 GM/DL (32-36); Mean Corpuscular Volume 93.1 FL (87-102); Mean Platelet Volume 9.5 FL (9.6-12.0); Monocytes % 13.2 % (1.7-12.7); Neutrophils % 70.7 % (38.7-73.9); Platelet Count 188 T/CUMM (130-400); Red Blood Count 2.48 MC/CUMM (3.8-5.5); Red Cell Distribution Width 16.6 % (9.3-17.3); White Blood Count 10.8 T/CUMM (4-12)
[2021-05-17 06:08] LABS: Calcium 7.7 MG/DL (8.5-10.1); Potassium 3.5 MMOL/L (3.5-5.1)
[2021-05-17] MEDS: INSULIN REGULAR 100 UNIT/ML SUBCUT SCH ×4 (07:37→21:05)
[2021-05-17] MEDS: PANTOPRAZOLE 40 MG VIAL IV SCH ×2 (09:04→21:05)
[2021-05-17 09:55] LABS: Hematocrit 24.4 VOL% (42.0-52.0); Hemoglobin 7.6 GM/DL (14.0-18.0)
[2021-05-17] MEDS: carvediloL 12.5 MG TABLET PO SCH ×2 (14:30→21:05)
[2021-05-17] MEDS: amLODIPine 10 MG TABLET PO SCH (14:31)
[2021-05-17] MEDS: FENOFIBRATE 145 MG TABLET PO SCH (14:37)
[2021-05-17] MEDS: cefTRIAXone 1,000 MG in SODIUM CHLORIDE 0.9% 100 ML IV SCH (14:37)
[2021-05-17] MEDS: ATORVASTATIN 20 MG TABLET PO SCH (14:37)
[2021-05-17 16:49] LABS: Hemoglobin 8.6 GM/DL (14.0-18.0)
[2021-05-17 22:15] LABS: Hematocrit 23.8 VOL% (42.0-52.0); Hemoglobin 7.6 GM/DL (14.0-18.0)
[2021-05-18 05:25] LABS: Hematocrit 23.8 VOL% (42.0-52.0); Hemoglobin 7.6 GM/DL (14.0-18.0)
[2021-05-18 05:27] LABS: Basophils # 0.1 10*3/uL (0.0-0.2); Basophils % 0.6 % (0.0-0.8); Eosinophils # 0.3 10*3/uL (0.0-0.87); Eosinophils % 3.9 % (0.00-10.9); Hematocrit 23.7 VOL% (42.0-52.0); Hemoglobin 7.6 GM/DL (14.0-18.0); Immature Granulocytes % 1.5 %; Immature Granulocytes Absolute 0.13 #; Lymphocytes # 1.3 10*3/uL (1.4-4.0); Lymphocytes % 15.8 % (21.2-54.2); Mean Corpuscular HGB Conc 32.1 GM/DL (32-36); Mean Corpuscular Volume 90.5 FL (87-102); Mean Platelet Volume 9.4 FL (9.6-12.0); Monocytes % 10.8 % (1.7-12.7); Neutrophils % 67.4 % (38.7-73.9); Platelet Count 173 T/CUMM (130-400); Red Blood Count 2.62 MC/CUMM (3.8-5.5); Red Cell Distribution Width 16.5 % (9.3-17.3); White Blood Count 8.4 T/CUMM (4-12)
[2021-05-18 05:47] LABS: Calcium 7.7 MG/DL (8.5-10.1); Osmolality,Calculated 288.2 MOS/KG (273-304); Potassium 3.9 MMOL/L (3.5-5.1)
[2021-05-18 05:56] LABS: Eosinophils 7 % (0-10); Hypochromia 1+; Lymphocytes 15 % (20-55); Microcytosis 1+; Segmented Neutrophils 70 % (50-85); Total Cells Counted 100
[2021-05-18 05:57] LABS: Platelet Estimate Adequate; Polychromasia Slight
[2021-05-18] MEDS: metroNIDAZOLE INJ 500 MG/100 ML PREMIX IV SCH ×3 (06:00→22:00)
[2021-05-18] MEDS ORDERED: MAGNESIUM SULF RIDER 2 GM/50 ML PREMIX IV ONE (07:39)
[2021-05-18] MEDS ORDERED: MAGNESIUM SULF RIDER 1 GM/100 ML PREMIX IV ONE (07:42)
[2021-05-18] MEDS: INSULIN REGULAR 100 UNIT/ML SUBCUT SCH ×4 (08:31→21:35)
[2021-05-18] MEDS: ATORVASTATIN 20 MG TABLET PO SCH (09:25)
[2021-05-18] MEDS: FENOFIBRATE 145 MG TABLET PO SCH (09:25)
[2021-05-18] MEDS: carvediloL 12.5 MG TABLET PO SCH ×2 (09:25→20:40)
[2021-05-18] MEDS: PANTOPRAZOLE 40 MG VIAL IV SCH ×2 (09:25→20:40)
[2021-05-18] MEDS: amLODIPine 10 MG TABLET PO SCH (09:25)
[2021-05-18] MEDS: cefTRIAXone 1,000 MG in SODIUM CHLORIDE 0.9% 100 ML IV SCH (11:36)
[2021-05-18 11:38] LABS: Hematocrit 24.4 VOL% (42.0-52.0); Hemoglobin 7.7 GM/DL (14.0-18.0)
[2021-05-18 17:48] LABS: Hematocrit 23.3 VOL% (42.0-52.0); Hemoglobin 7.4 GM/DL (14.0-18.0)
[2021-05-18 23:44] LABS: Hematocrit 21.1 VOL% (42.0-52.0); Hemoglobin 6.6 GM/DL (14.0-18.0)
[2021-05-19 05:02] LABS: Basophils % 0.4 % (0.0-0.8); Eosinophils # 0.5 10*3/uL (0.0-0.87); Eosinophils % 4.6 % (0.00-10.9); Hematocrit 21.1 VOL% (42.0-52.0); Hemoglobin 6.8 GM/DL (14.0-18.0); Lymphocytes # 1.2 10*3/uL (1.4-4.0); Lymphocytes % 12.3 % (21.2-54.2); Mean Corpuscular HGB Conc 32.2 GM/DL (32-36); Mean Corpuscular Volume 90.6 FL (87-102); Mean Platelet Volume 9.4 FL (9.6-12.0); Monocytes % 8.7 % (1.7-12.7); Platelet Count 188 T/CUMM (130-400); Red Blood Count 2.33 MC/CUMM (3.8-5.5); Red Cell Distribution Width 16.5 % (9.3-17.3); White Blood Count 9.7 T/CUMM (4-12)
[2021-05-19 05:24] LABS: Calcium 7.8 MG/DL (8.5-10.1); Potassium 4.4 MMOL/L (3.5-5.1)
[2021-05-19] MEDS ORDERED: SODIUM CHLORIDE 0.9% 1,000 ML IV PRN ×2 (05:28→08:10)
[2021-05-19] MEDS: INSULIN REGULAR 100 UNIT/ML SUBCUT SCH ×4 (07:30→22:03)
[2021-05-19] MEDS: ATORVASTATIN 20 MG TABLET PO SCH (09:30)
[2021-05-19] MEDS: PANTOPRAZOLE 40 MG VIAL IV SCH ×2 (09:30→20:10)
[2021-05-19] MEDS: FENOFIBRATE 145 MG TABLET PO SCH (09:30)
[2021-05-19] MEDS: carvediloL 12.5 MG TABLET PO SCH ×2 (09:30→22:03)
[2021-05-19] MEDS: amLODIPine 10 MG TABLET PO SCH (09:30)
[2021-05-19] MEDS: metroNIDAZOLE INJ 500 MG/100 ML PREMIX IV SCH ×3 (09:30→22:00)
[2021-05-19 11:30] LABS: Hematocrit 22.4 VOL% (42.0-52.0); Hemoglobin 7.2 GM/DL (14.0-18.0)
[2021-05-19] MEDS: cefTRIAXone 1,000 MG in SODIUM CHLORIDE 0.9% 100 ML IV SCH (11:52)
[2021-05-19 18:15] LABS: Hematocrit 19.8 VOL% (42.0-52.0)
[2021-05-19 18:19] LABS: Hemoglobin 6.1 GM/DL (14.0-18.0)
[2021-05-19 21:26] LABS: CDT Result Negative (Negative); CDT Specimen Source STOOL
[2021-05-19 23:18] LABS: Hematocrit 19.4 VOL% (42.0-52.0)
[2021-05-19 23:41] LABS: Hemoglobin 6.1 GM/DL (14.0-18.0)
[2021-05-20 05:56] LABS: Basophils # 0.1 10*3/uL (0.0-0.2); Basophils % 0.5 % (0.0-0.8); Eosinophils # 0.6 10*3/uL (0.0-0.87); Eosinophils % 4.8 % (0.00-10.9); Hematocrit 20.9 VOL% (42.0-52.0); Hemoglobin 6.7 GM/DL (14.0-18.0); Immature Granulocytes % 1.2 %; Immature Granulocytes Absolute 0.16 #; Lymphocytes # 1.8 10*3/uL (1.4-4.0); Lymphocytes % 14.1 % (21.2-54.2); Mean Corpuscular HGB Conc 32.1 GM/DL (32-36); Mean Corpuscular Volume 91.7 FL (87-102); Mean Platelet Volume 9.6 FL (9.6-12.0); Neutrophils % 71.4 % (38.7-73.9); Platelet Count 257 T/CUMM (130-400); Red Blood Count 2.28 MC/CUMM (3.8-5.5); Red Cell Distribution Width 16.5 % (9.3-17.3)
[2021-05-20 06:00] LABS: Calcium 7.5 MG/DL (8.5-10.1); Osmolality,Calculated 304.8 MOS/KG (273-304); Potassium 5.2 MMOL/L (3.5-5.1)
[2021-05-20] MEDS: amLODIPine 10 MG TABLET PO SCH (08:56)
[2021-05-20] MEDS: carvediloL 12.5 MG TABLET PO SCH ×2 (08:57→17:43)
[2021-05-20] MEDS: ATORVASTATIN 20 MG TABLET PO SCH (08:57)
[2021-05-20] MEDS: INSULIN REGULAR 100 UNIT/ML SUBCUT SCH ×4 (08:57→20:40)
[2021-05-20] MEDS: PANTOPRAZOLE 40 MG VIAL IV SCH ×2 (08:57→20:40)
[2021-05-20] MEDS: FENOFIBRATE 145 MG TABLET PO SCH (08:57)
[2021-05-20] MEDS: metroNIDAZOLE INJ 500 MG/100 ML PREMIX IV SCH ×3 (09:00→22:00)
[2021-05-20] MEDS ORDERED: SODIUM CHLORIDE 0.9% 1,000 ML IV PRN (09:00)
[2021-05-20] MEDS: cefTRIAXone 1,000 MG in SODIUM CHLORIDE 0.9% 100 ML IV SCH (11:57)
[2021-05-20] MEDS ORDERED: BISACODYL 5 MG TABLET PO ONE (12:00)
[2021-05-20] MEDS ORDERED: MORPHINE 4 MG/1 ML VIAL IV PRN (15:17)
[2021-05-20 16:30] LABS: Hematocrit 26.1 VOL% (42.0-52.0); Hemoglobin 8.7 GM/DL (14.0-18.0)
[2021-05-20] MEDS ORDERED: POLYETHYLENE GLYCOL POWDER 255 GM BOTTLE PO ONE (18:00)
[2021-05-21 05:49] LABS: Basophils % 0.4 % (0.0-0.8); Eosinophils # 0.3 10*3/uL (0.0-0.87); Hematocrit 26.2 VOL% (42.0-52.0); Hemoglobin 8.3 GM/DL (14.0-18.0); Immature Granulocytes % 1.3 %; Immature Granulocytes Absolute 0.14 #; Lymphocytes # 1.3 10*3/uL (1.4-4.0); Mean Corpuscular HGB Conc 31.7 GM/DL (32-36); Mean Corpuscular Volume 90.7 FL (87-102); Mean Platelet Volume 9.2 FL (9.6-12.0); Monocytes % 10.5 % (1.7-12.7); Neutrophils % 72.8 % (38.7-73.9); Platelet Count 210 T/CUMM (130-400); Red Blood Count 2.89 MC/CUMM (3.8-5.5); Red Cell Distribution Width 16.1 % (9.3-17.3); White Blood Count 10.8 T/CUMM (4-12)
[2021-05-21 05:55] LABS: INR 1.3; PT Patient Result 14.4 SECS (10.5-12.0)
[2021-05-21 06:07] LABS: Calcium 7.5 MG/DL (8.5-10.1); Potassium 4.2 MMOL/L (3.5-5.1)
[2021-05-21 06:34] LABS: Hematocrit 25.2 VOL% (42.0-52.0); Hemoglobin 8.3 GM/DL (14.0-18.0)
[2021-05-21] MEDS: metroNIDAZOLE INJ 500 MG/100 ML PREMIX IV SCH ×2 (09:56→15:02)
[2021-05-21] MEDS: INSULIN REGULAR 100 UNIT/ML SUBCUT SCH ×4 (09:57→22:00)
[2021-05-21] MEDS: carvediloL 12.5 MG TABLET PO SCH ×2 (09:57→17:09)
[2021-05-21] MEDS: ATORVASTATIN 20 MG TABLET PO SCH (10:02)
[2021-05-21] MEDS: amLODIPine 10 MG TABLET PO SCH (10:02)
[2021-05-21] MEDS: PANTOPRAZOLE 40 MG VIAL IV SCH ×2 (10:03→22:00)
[2021-05-21] MEDS: FENOFIBRATE 145 MG TABLET PO SCH (10:03)
[2021-05-21] MEDS: SODIUM CHLORIDE 0.9% 1,000 ML IV SCH (10:52)
[2021-05-21] MEDS ORDERED: propofoL 200 MG/20 ML VIAL IV ONE (12:22)
[2021-05-21] MEDS ORDERED: LIDOCAINE 2% 5 ML VIAL ONE (12:22)
[2021-05-21] MEDS ORDERED: PHENYLEPHRINE 1 MG/10 ML SYRINGE IV ONE (12:30)
[2021-05-21 13:45] LABS: Hematocrit 24.6 VOL% (42.0-52.0); Hemoglobin 8.1 GM/DL (14.0-18.0)
[2021-05-21] MEDS: cefTRIAXone 1,000 MG in SODIUM CHLORIDE 0.9% 100 ML IV SCH (14:24)
[2021-05-21 20:19] LABS: Hematocrit 22.4 VOL% (42.0-52.0); Hemoglobin 7.3 GM/DL (14.0-18.0)
[2021-05-22] MEDS: metroNIDAZOLE INJ 500 MG/100 ML PREMIX IV SCH ×2 (00:20→06:01)
[2021-05-22 02:42] LABS: Basophils # 0.1 10*3/uL (0.0-0.2); Basophils % 0.6 % (0.0-0.8); Eosinophils # 0.3 10*3/uL (0.0-0.87); Eosinophils % 2.9 % (0.00-10.9); Hematocrit 22.7 VOL% (42.0-52.0); Hemoglobin 7.3 GM/DL (14.0-18.0); Immature Granulocytes % 0.7 %; Immature Granulocytes Absolute 0.08 #; Lymphocytes # 1.6 10*3/uL (1.4-4.0); Lymphocytes % 14.9 % (21.2-54.2); Mean Corpuscular HGB Conc 32.2 GM/DL (32-36); Mean Platelet Volume 8.8 FL (9.6-12.0); Monocytes % 11.6 % (1.7-12.7); Neutrophils % 69.3 % (38.7-73.9); Platelet Count 185 T/CUMM (130-400); Red Blood Count 2.44 MC/CUMM (3.8-5.5); Red Cell Distribution Width 16.2 % (9.3-17.3); White Blood Count 10.8 T/CUMM (4-12)
[2021-05-22 02:59] LABS: Calcium 7.5 MG/DL (8.5-10.1); Osmolality,Calculated 296.8 MOS/KG (273-304); Potassium 4.4 MMOL/L (3.5-5.1)
[2021-05-22] MEDS: INSULIN REGULAR 100 UNIT/ML SUBCUT SCH ×4 (08:03→22:13)
[2021-05-22] MEDS ORDERED: SODIUM CHLORIDE 0.9% 1,000 ML IV PRN (08:17)
[2021-05-22] MEDS: SODIUM CHLORIDE 0.9% 1,000 ML IV SCH (08:47)
[2021-05-22] MEDS: ATORVASTATIN 20 MG TABLET PO SCH (09:54)
[2021-05-22] MEDS: carvediloL 12.5 MG TABLET PO SCH ×2 (09:54→18:52)
[2021-05-22] MEDS: FENOFIBRATE 145 MG TABLET PO SCH (09:54)
[2021-05-22] MEDS: PANTOPRAZOLE 40 MG VIAL IV SCH ×2 (09:55→22:13)
[2021-05-22] MEDS: amLODIPine 10 MG TABLET PO SCH (09:55)
[2021-05-22 11:15] LABS: Hematocrit 21.6 VOL% (42.0-52.0); Hemoglobin 6.8 GM/DL (14.0-18.0)
[2021-05-22] MEDS: cefTRIAXone 1,000 MG in SODIUM CHLORIDE 0.9% 100 ML IV SCH (11:57)
[2021-05-22] MEDS: metroNIDAZOLE 500 MG TABLET PO SCH ×2 (12:06→18:52)
[2021-05-22 15:11] LABS: Hepatitis B Surface Ag Result Non-Reactive (NonReactive)
[2021-05-22 16:38] LABS: Alanine Aminotransferase 27 U/L (16-61); Albumin 2.1 G/DL (3.4-5.0); Alkaline Phosphatase 70 U/L (45-117); Aspartate Amino Transferase 43 U/L (0-37); Bilirubin,Direct < 0.100 MG/DL (0.0-0.20); Bilirubin,Indirect 0.3 MG/DL (0.0-1.0); Bilirubin,Total < 0.39 MG/DL (0.20-1.00); Total Protein 5.1 G/DL (6.4-8.2)
[2021-05-22 17:43] LABS: Hepatitis B Core IgM Quant 0.17 Index; Hepatitis B Surface Ag Quant 0.15 Index; Hepatitis B Surface Ag Result Non-Reactive (NonReactive); Hepatitis C Virus Ab Quant 0.04 Index; Hepatitis C Virus Ab Result Non-Reactive (NonReactive)
[2021-05-22 22:33] LABS: Hematocrit 23.3 VOL% (42.0-52.0); Hemoglobin 7.5 GM/DL (14.0-18.0)
[2021-05-23 05:30] LABS: Basophils % 0.5 % (0.0-0.8); Eosinophils # 0.2 10*3/uL (0.0-0.87); Eosinophils % 2.1 % (0.00-10.9); Hematocrit 24.1 VOL% (42.0-52.0); Hemoglobin 7.8 GM/DL (14.0-18.0); Immature Granulocytes % 0.8 %; Immature Granulocytes Absolute 0.07 #; Lymphocytes # 1.3 10*3/uL (1.4-4.0); Lymphocytes % 15.5 % (21.2-54.2); Mean Corpuscular HGB Conc 32.4 GM/DL (32-36); Mean Corpuscular Volume 93.4 FL (87-102); Mean Platelet Volume 9.6 FL (9.6-12.0); Monocytes % 11.3 % (1.7-12.7); Neutrophils % 69.8 % (38.7-73.9); Platelet Count 190 T/CUMM (130-400); Red Blood Count 2.58 MC/CUMM (3.8-5.5); White Blood Count 8.6 T/CUMM (4-12)
[2021-05-23 05:43] LABS: Calcium 7.5 MG/DL (8.5-10.1); Osmolality,Calculated 290.5 MOS/KG (273-304); Potassium 4.2 MMOL/L (3.5-5.1)
[2021-05-23 07:53] LABS: Basophils % 0.2 % (0.0-0.8); Eosinophils # 0.3 10*3/uL (0.0-0.87); Eosinophils % 3.3 % (0.00-10.9); Hematocrit 23.3 VOL% (42.0-52.0); Hematocrit 23.8 VOL% (42.0-52.0); Hemoglobin 7.5 GM/DL (14.0-18.0); Hemoglobin 7.7 GM/DL (14.0-18.0); Immature Granulocytes % 0.8 %; Immature Granulocytes Absolute 0.07 #; Lymphocytes # 1.1 10*3/uL (1.4-4.0); Lymphocytes % 12.7 % (21.2-54.2); Mean Corpuscular HGB Conc 32.2 GM/DL (32-36); Mean Corpuscular Volume 93.6 FL (87-102); Mean Platelet Volume 8.9 FL (9.6-12.0); Platelet Count 179 T/CUMM (130-400); Red Blood Count 2.49 MC/CUMM (3.8-5.5); White Blood Count 8.4 T/CUMM (4-12)
[2021-05-23 08:08] LABS: Calcium 7.4 MG/DL (8.5-10.1); Osmolality,Calculated 290.5 MOS/KG (273-304); Potassium 4.3 MMOL/L (3.5-5.1)
[2021-05-23] MEDS: PANTOPRAZOLE 40 MG VIAL IV SCH ×2 (08:23→21:51)
[2021-05-23] MEDS: amLODIPine 10 MG TABLET PO SCH (08:23)
[2021-05-23] MEDS: metroNIDAZOLE 500 MG TABLET PO SCH ×3 (08:23→16:50)
[2021-05-23] MEDS: FENOFIBRATE 145 MG TABLET PO SCH (08:23)
[2021-05-23] MEDS: ATORVASTATIN 20 MG TABLET PO SCH (08:23)
[2021-05-23] MEDS: carvediloL 12.5 MG TABLET PO SCH ×2 (08:23→16:50)
[2021-05-23] MEDS: CETIRIZINE 10 MG TABLET PO SCH (08:24)
[2021-05-23] MEDS: INSULIN REGULAR 100 UNIT/ML SUBCUT SCH ×4 (08:33→21:51)
[2021-05-23] MEDS: SODIUM CHLORIDE 0.9% 1,000 ML IV SCH (08:33)
[2021-05-23] MEDS: SEVELAMER CARBONATE 800 MG TABLET PO SCH ×3 (09:52→16:50)
[2021-05-23 10:39] LABS: Hematocrit 22.6 VOL% (42.0-52.0); Hemoglobin 7.2 GM/DL (14.0-18.0)
[2021-05-23] MEDS: cefTRIAXone 1,000 MG in SODIUM CHLORIDE 0.9% 100 ML IV SCH (11:51)
[2021-05-23 18:54] LABS: Hematocrit 20.8 VOL% (42.0-52.0); Hemoglobin 6.5 GM/DL (14.0-18.0)
[2021-05-24 05:28] LABS: Basophils % 0.4 % (0.0-0.8); Eosinophils # 0.4 10*3/uL (0.0-0.87); Eosinophils % 3.9 % (0.00-10.9); Hematocrit 22.3 VOL% (42.0-52.0); Hemoglobin 6.9 GM/DL (14.0-18.0); Immature Granulocytes % 0.6 %; Immature Granulocytes Absolute 0.06 #; Lymphocytes # 1.5 10*3/uL (1.4-4.0); Lymphocytes % 15.7 % (21.2-54.2); Mean Corpuscular HGB Conc 30.9 GM/DL (32-36); Mean Corpuscular Volume 94.9 FL (87-102); Mean Platelet Volume 9.3 FL (9.6-12.0); Monocytes % 9.6 % (1.7-12.7); Neutrophils % 69.8 % (38.7-73.9); Platelet Count 182 T/CUMM (130-400); Red Blood Count 2.35 MC/CUMM (3.8-5.5); Red Cell Distribution Width 16.1 % (9.3-17.3); White Blood Count 9.6 T/CUMM (4-12)
[2021-05-24 05:49] LABS: Calcium 7.2 MG/DL (8.5-10.1); Osmolality,Calculated 292.7 MOS/KG (273-304); Potassium 4.5 MMOL/L (3.5-5.1)
[2021-05-24] MEDS: INSULIN REGULAR 100 UNIT/ML SUBCUT SCH ×3 (08:06→17:20)
[2021-05-24] MEDS: FENOFIBRATE 145 MG TABLET PO SCH (10:28)
[2021-05-24] MEDS: ATORVASTATIN 20 MG TABLET PO SCH (10:28)
[2021-05-24] MEDS: metroNIDAZOLE 500 MG TABLET PO SCH ×3 (10:28→17:20)
[2021-05-24] MEDS: CETIRIZINE 10 MG TABLET PO SCH (10:28)
[2021-05-24] MEDS: SEVELAMER CARBONATE 800 MG TABLET PO SCH ×3 (12:43→17:20)
[2021-05-24] MEDS: SODIUM CHLORIDE 0.9% 1,000 ML IV SCH (12:43)
[2021-05-24] MEDS: carvediloL 12.5 MG TABLET PO SCH ×2 (13:11→17:20)
[2021-05-24] MEDS: amLODIPine 10 MG TABLET PO SCH (13:12)
[2021-05-24] MEDS: PANTOPRAZOLE 40 MG VIAL IV SCH ×2 (13:13→21:39)
[2021-05-24] MEDS: cefTRIAXone 1,000 MG in SODIUM CHLORIDE 0.9% 100 ML IV SCH (13:39)
[2021-05-24] MEDS: BACILLUS COAGULANS CAPLET PO SCH (13:39)
[2021-05-25 05:00] LABS: Basophils % 0.4 % (0.0-0.8); Eosinophils # 0.3 10*3/uL (0.0-0.87); Eosinophils % 3.2 % (0.00-10.9); Hematocrit 23.9 VOL% (42.0-52.0); Hemoglobin 7.5 GM/DL (14.0-18.0); Immature Granulocytes % 0.8 %; Immature Granulocytes Absolute 0.07 #; Lymphocytes # 1.2 10*3/uL (1.4-4.0); Lymphocytes % 13.1 % (21.2-54.2); Mean Corpuscular HGB Conc 31.4 GM/DL (32-36); Mean Corpuscular Volume 92.6 FL (87-102); Monocytes % 8.5 % (1.7-12.7); Platelet Count 170 T/CUMM (130-400); Red Blood Count 2.58 MC/CUMM (3.8-5.5); Red Cell Distribution Width 16.8 % (9.3-17.3); White Blood Count 9.2 T/CUMM (4-12)
[2021-05-25] MEDS: INSULIN REGULAR 100 UNIT/ML SUBCUT SCH ×5 (08:51→21:02)
[2021-05-25] MEDS: SEVELAMER CARBONATE 800 MG TABLET PO SCH ×3 (09:29→18:09)
[2021-05-25] MEDS: CETIRIZINE 10 MG TABLET PO SCH (09:29)
[2021-05-25] MEDS: carvediloL 12.5 MG TABLET PO SCH ×2 (09:29→17:54)
[2021-05-25] MEDS: PANTOPRAZOLE 40 MG VIAL IV SCH ×2 (09:29→21:04)
[2021-05-25] MEDS: BACILLUS COAGULANS CAPLET PO SCH (09:29)
[2021-05-25] MEDS: FENOFIBRATE 145 MG TABLET PO SCH (09:29)
[2021-05-25] MEDS: amLODIPine 10 MG TABLET PO SCH (09:30)
[2021-05-25] MEDS: metroNIDAZOLE 500 MG TABLET PO SCH ×3 (09:30→17:54)
[2021-05-25] MEDS: ATORVASTATIN 20 MG TABLET PO SCH (09:30)
[2021-05-25] MEDS: SODIUM CHLORIDE 0.9% 1,000 ML IV SCH (10:33)
[2021-05-25] MEDS: cefTRIAXone 1,000 MG in SODIUM CHLORIDE 0.9% 100 ML IV SCH (13:35)
[2021-05-26] MEDS: INSULIN REGULAR 100 UNIT/ML SUBCUT SCH ×4 (08:55→21:05)
[2021-05-26] MEDS: SODIUM CHLORIDE 0.9% 1,000 ML IV SCH (08:58)
[2021-05-26 09:55] LABS: Basophils # 0.1 10*3/uL (0.0-0.2); Basophils % 0.5 % (0.0-0.8); Eosinophils # 0.3 10*3/uL (0.0-0.87); Eosinophils % 3.5 % (0.00-10.9); Hematocrit 21.7 VOL% (42.0-52.0); Hemoglobin 6.7 GM/DL (14.0-18.0); Immature Granulocytes % 0.6 %; Immature Granulocytes Absolute 0.06 #; Lymphocytes # 1.2 10*3/uL (1.4-4.0); Lymphocytes % 12.3 % (21.2-54.2); Mean Corpuscular HGB Conc 30.9 GM/DL (32-36); Mean Corpuscular Volume 96.4 FL (87-102); Mean Platelet Volume 9.6 FL (9.6-12.0); Neutrophils % 75.1 % (38.7-73.9); Platelet Count 170 T/CUMM (130-400); Red Blood Count 2.25 MC/CUMM (3.8-5.5); Red Cell Distribution Width 17.2 % (9.3-17.3); White Blood Count 9.6 T/CUMM (4-12)
[2021-05-26 10:13] LABS: Albumin 2.1 G/DL (3.4-5.0); Bilirubin,Total 0.5 MG/DL (0.20-1.00); Calcium 7.6 MG/DL (8.5-10.1); Osmolality,Calculated 302.3 MOS/KG (273-304); Potassium 4.9 MMOL/L (3.5-5.1); Total Protein 5.2 G/DL (6.4-8.2)
[2021-05-26] MEDS: PANTOPRAZOLE 40 MG VIAL IV SCH ×2 (10:36→21:05)
[2021-05-26] MEDS: amLODIPine 10 MG TABLET PO SCH (10:36)
[2021-05-26] MEDS: metroNIDAZOLE 500 MG TABLET PO SCH ×3 (10:36→18:08)
[2021-05-26] MEDS: carvediloL 12.5 MG TABLET PO SCH ×2 (10:36→18:08)
[2021-05-26] MEDS: BACILLUS COAGULANS CAPLET PO SCH (10:36)
[2021-05-26] MEDS: SEVELAMER CARBONATE 800 MG TABLET PO SCH ×3 (10:36→18:08)
[2021-05-26] MEDS: FENOFIBRATE 145 MG TABLET PO SCH (10:36)
[2021-05-26] MEDS: ATORVASTATIN 20 MG TABLET PO SCH (10:36)
[2021-05-26] MEDS: cefTRIAXone 1,000 MG in SODIUM CHLORIDE 0.9% 100 ML IV SCH (10:37)
[2021-05-26] MEDS: CETIRIZINE 10 MG TABLET PO SCH (10:37)
[2021-05-26] MEDS ORDERED: SODIUM CHLORIDE 0.9% 1,000 ML IV PRN (14:55)
[2021-05-26] MEDS ORDERED: POLYETHYLENE GLYCOL POWDER 255 GM BOTTLE PO ONE (18:00)
[2021-05-27 05:58] LABS: Basophils # 0.1 10*3/uL (0.0-0.2); Basophils % 0.5 % (0.0-0.8); Eosinophils # 0.3 10*3/uL (0.0-0.87); Eosinophils % 3.2 % (0.00-10.9); Hematocrit 19.4 VOL% (42.0-52.0); Immature Granulocytes % 0.7 %; Immature Granulocytes Absolute 0.07 #; Lymphocytes % 10.5 % (21.2-54.2); Mean Corpuscular HGB Conc 30.9 GM/DL (32-36); Mean Corpuscular Volume 96.5 FL (87-102); Mean Platelet Volume 9.7 FL (9.6-12.0); Monocytes % 8.7 % (1.7-12.7); Neutrophils % 76.4 % (38.7-73.9); Platelet Count 167 T/CUMM (130-400); Red Blood Count 2.01 MC/CUMM (3.8-5.5); White Blood Count 9.8 T/CUMM (4-12)
[2021-05-27 06:36] LABS: Calcium 7.6 MG/DL (8.5-10.1); Osmolality,Calculated 303.4 MOS/KG (273-304); Potassium 4.6 MMOL/L (3.5-5.1)
[2021-05-27] MEDS ORDERED: SODIUM CHLORIDE 0.9% 1,000 ML IV SCH (08:00)
[2021-05-27] MEDS: INSULIN REGULAR 100 UNIT/ML SUBCUT SCH ×4 (08:39→21:09)
[2021-05-27] MEDS: carvediloL 12.5 MG TABLET PO SCH ×2 (10:50→18:07)
[2021-05-27] MEDS: metroNIDAZOLE 500 MG TABLET PO SCH ×2 (10:50→17:19)
[2021-05-27] MEDS: SEVELAMER CARBONATE 800 MG TABLET PO SCH ×3 (10:50→18:07)
[2021-05-27] MEDS: ATORVASTATIN 20 MG TABLET PO SCH (10:51)
[2021-05-27] MEDS: PANTOPRAZOLE 40 MG VIAL IV SCH ×2 (10:51→21:10)
[2021-05-27] MEDS: FENOFIBRATE 145 MG TABLET PO SCH (10:51)
[2021-05-27] MEDS: CETIRIZINE 10 MG TABLET PO SCH (10:51)
[2021-05-27] MEDS: BACILLUS COAGULANS CAPLET PO SCH (10:51)
[2021-05-27] MEDS: amLODIPine 10 MG TABLET PO SCH (10:51)
[2021-05-27] MEDS: cefTRIAXone 1,000 MG in SODIUM CHLORIDE 0.9% 100 ML IV SCH (12:47)
[2021-05-27] MEDS ORDERED: POLYETHYLENE GLYCOL POWDER 255 GM BOTTLE PO ONE (18:00)
[2021-05-28 07:50] LABS: Basophils % 0.5 % (0.0-0.8); Hematocrit 23.2 VOL% (42.0-52.0); Immature Granulocytes % 0.6 %; Immature Granulocytes Absolute 0.05 #
[2021-05-28 08:05] LABS: Eosinophils # 0.2 10*3/uL (0.0-0.87); Eosinophils % 2.8 % (0.00-10.9); Lymphocytes % 11.4 % (21.2-54.2); Mean Corpuscular HGB Conc 31.5 GM/DL (32-36); Mean Corpuscular Volume 94.7 FL (87-102); Mean Platelet Volume 9.8 FL (9.6-12.0); Monocytes % 9.5 % (1.7-12.7); Neutrophils % 75.2 % (38.7-73.9); Platelet Count 159 T/CUMM (130-400); Red Cell Distribution Width 16.8 % (9.3-17.3); White Blood Count 8.6 T/CUMM (4-12)
[2021-05-28 08:16] LABS: Red Blood Count 2.45 MC/CUMM (3.8-5.5)
[2021-05-28 08:17] LABS: Hemoglobin 7.3 GM/DL (14.0-18.0)
[2021-05-28] MEDS: INSULIN REGULAR 100 UNIT/ML SUBCUT SCH ×4 (08:27→20:58)
[2021-05-28] MEDS: PANTOPRAZOLE 40 MG VIAL IV SCH ×2 (09:05→21:35)
[2021-05-28 09:06] LABS: Calcium 7.9 MG/DL (8.5-10.1); Osmolality,Calculated 302.1 MOS/KG (273-304); Potassium 4.6 MMOL/L (3.5-5.1)
[2021-05-28] MEDS: carvediloL 12.5 MG TABLET PO SCH ×2 (09:44→16:38)
[2021-05-28] MEDS: FENOFIBRATE 145 MG TABLET PO SCH (09:44)
[2021-05-28] MEDS: BACILLUS COAGULANS CAPLET PO SCH (09:44)
[2021-05-28] MEDS: SEVELAMER CARBONATE 800 MG TABLET PO SCH ×3 (09:44→16:38)
[2021-05-28] MEDS: amLODIPine 10 MG TABLET PO SCH (09:44)
[2021-05-28] MEDS: ATORVASTATIN 20 MG TABLET PO SCH (09:44)
[2021-05-28] MEDS: CETIRIZINE 10 MG TABLET PO SCH (09:44)
[2021-05-28] MEDS ORDERED: propofoL 200 MG/20 ML VIAL IV ONE ×2 (11:59→12:30)
[2021-05-28] MEDS ORDERED: LIDOCAINE 2% 5 ML VIAL ONE (11:59)
[2021-05-28] MEDS ORDERED: ETOMIDATE 20 MG/10 ML VIAL IV ONE (12:03)
[2021-05-28] MEDS: SODIUM CHLORIDE 0.9% 1,000 ML IV SCH (12:09)
[2021-05-28] MEDS ORDERED: GLUCAGON 1 MG VIAL IM PRN (14:58)
[2021-05-28] MEDS ORDERED: DEXTROSE 10% 250 ML BAG IV PRN (15:03)
[2021-05-29] MEDS: INSULIN REGULAR 100 UNIT/ML SUBCUT SCH ×4 (07:13→22:10)
[2021-05-29 07:41] LABS: Basophils % 0.4 % (0.0-0.8); Eosinophils # 0.3 10*3/uL (0.0-0.87); Eosinophils % 3.9 % (0.00-10.9); Hematocrit 20.6 VOL% (42.0-52.0); Immature Granulocytes % 0.4 %; Immature Granulocytes Absolute 0.03 #; Lymphocytes # 0.9 10*3/uL (1.4-4.0); Lymphocytes % 11.7 % (21.2-54.2); Mean Corpuscular HGB Conc 31.1 GM/DL (32-36); Mean Corpuscular Volume 96.3 FL (87-102); Mean Platelet Volume 9.6 FL (9.6-12.0); Monocytes % 8.8 % (1.7-12.7); Neutrophils % 74.8 % (38.7-73.9); Platelet Count 151 T/CUMM (130-400); Red Blood Count 2.14 MC/CUMM (3.8-5.5); Red Cell Distribution Width 16.7 % (9.3-17.3); White Blood Count 7.7 T/CUMM (4-12)
[2021-05-29 07:44] LABS: Hemoglobin 6.4 GM/DL (14.0-18.0)
[2021-05-29 07:56] LABS: Calcium 7.7 MG/DL (8.5-10.1); Osmolality,Calculated 304.1 MOS/KG (273-304); Potassium 4.6 MMOL/L (3.5-5.1)
[2021-05-29] MEDS ORDERED: SODIUM CHLORIDE 0.9% 1,000 ML IV PRN (08:01)
[2021-05-29] MEDS: ATORVASTATIN 20 MG TABLET PO SCH (14:05)
[2021-05-29] MEDS: SEVELAMER CARBONATE 800 MG TABLET PO SCH ×3 (14:05→16:45)
[2021-05-29] MEDS: BACILLUS COAGULANS CAPLET PO SCH (14:05)
[2021-05-29] MEDS: carvediloL 12.5 MG TABLET PO SCH ×2 (14:05→18:39)
[2021-05-29] MEDS: amLODIPine 10 MG TABLET PO SCH (14:06)
[2021-05-29] MEDS: FENOFIBRATE 145 MG TABLET PO SCH (14:06)
[2021-05-29] MEDS: PANTOPRAZOLE 40 MG VIAL IV SCH ×2 (14:06→20:57)
[2021-05-29] MEDS: CETIRIZINE 10 MG TABLET PO SCH (14:06)
[2021-05-29 17:10] LABS: Hematocrit 24.3 VOL% (42.0-52.0); Hemoglobin 7.8 GM/DL (14.0-18.0)
[2021-05-29] MEDS: SODIUM CHLORIDE 0.9% 1,000 ML IV SCH ×2 (20:12)
[2021-05-30 05:25] LABS: Basophils % 0.4 % (0.0-0.8); Eosinophils # 0.3 10*3/uL (0.0-0.87); Eosinophils % 4.3 % (0.00-10.9); Hematocrit 25.1 VOL% (42.0-52.0); Immature Granulocytes % 0.7 %; Immature Granulocytes Absolute 0.05 #; Lymphocytes % 13.1 % (21.2-54.2); Mean Corpuscular HGB Conc 31.9 GM/DL (32-36); Mean Platelet Volume 9.6 FL (9.6-12.0); Monocytes % 8.5 % (1.7-12.7); Platelet Count 151 T/CUMM (130-400); Red Blood Count 2.67 MC/CUMM (3.8-5.5); Red Cell Distribution Width 16.9 % (9.3-17.3); White Blood Count 7.7 T/CUMM (4-12)
[2021-05-30 05:42] LABS: Calcium 7.7 MG/DL (8.5-10.1); Osmolality,Calculated 298.4 MOS/KG (273-304); Potassium 4.4 MMOL/L (3.5-5.1)
[2021-05-30] MEDS: PANTOPRAZOLE 40 MG VIAL IV SCH ×2 (08:06→21:57)
[2021-05-30] MEDS: INSULIN REGULAR 100 UNIT/ML SUBCUT SCH ×4 (08:09→21:57)
[2021-05-30] MEDS: carvediloL 12.5 MG TABLET PO SCH ×2 (08:09→16:49)
[2021-05-30] MEDS: SEVELAMER CARBONATE 800 MG TABLET PO SCH ×3 (08:09→17:05)
[2021-05-30] MEDS: ATORVASTATIN 20 MG TABLET PO SCH (08:10)
[2021-05-30] MEDS: FENOFIBRATE 145 MG TABLET PO SCH (08:10)
[2021-05-30] MEDS: amLODIPine 10 MG TABLET PO SCH (08:10)
[2021-05-30] MEDS: BACILLUS COAGULANS CAPLET PO SCH (08:10)
[2021-05-30] MEDS: CETIRIZINE 10 MG TABLET PO SCH (08:11)
[2021-05-30] MEDS: SODIUM CHLORIDE 0.9% 1,000 ML IV SCH ×3 (09:54→10:32)
[2021-05-30] MEDS ORDERED: LIDOCAINE 2% 5 ML VIAL ONE (11:43)
[2021-05-30] MEDS ORDERED: propofoL 200 MG/20 ML VIAL IV ONE ×2 (11:43→12:09)
[2021-05-31 06:38] LABS: Basophils % 0.4 % (0.0-0.8); Eosinophils # 0.3 10*3/uL (0.0-0.87); Eosinophils % 4.1 % (0.00-10.9); Hemoglobin 7.4 GM/DL (14.0-18.0); Immature Granulocytes % 0.4 %; Immature Granulocytes Absolute 0.03 #; Lymphocytes % 13.2 % (21.2-54.2); Mean Corpuscular HGB Conc 30.8 GM/DL (32-36); Mean Corpuscular Volume 94.9 FL (87-102); Mean Platelet Volume 9.8 FL (9.6-12.0); Monocytes % 8.5 % (1.7-12.7); Neutrophils % 73.4 % (38.7-73.9); Platelet Count 146 T/CUMM (130-400); Red Blood Count 2.53 MC/CUMM (3.8-5.5); Red Cell Distribution Width 16.8 % (9.3-17.3); White Blood Count 7.5 T/CUMM (4-12)
[2021-05-31 07:15] LABS: Calcium 7.7 MG/DL (8.5-10.1); Osmolality,Calculated 304.4 MOS/KG (273-304); Potassium 4.4 MMOL/L (3.5-5.1)
[2021-05-31] MEDS ORDERED: SODIUM CHLORIDE 0.9% 1,000 ML IV PRN (08:18)
[2021-05-31] MEDS: BACILLUS COAGULANS CAPLET PO SCH (08:23)
[2021-05-31] MEDS: SEVELAMER CARBONATE 800 MG TABLET PO SCH ×3 (08:24→16:20)
[2021-05-31] MEDS: ATORVASTATIN 20 MG TABLET PO SCH (08:24)
[2021-05-31] MEDS: amLODIPine 10 MG TABLET PO SCH (08:24)
[2021-05-31] MEDS: FENOFIBRATE 145 MG TABLET PO SCH (08:24)
[2021-05-31] MEDS: PANTOPRAZOLE 40 MG VIAL IV SCH ×2 (08:25→21:08)
[2021-05-31] MEDS: carvediloL 12.5 MG TABLET PO SCH ×2 (08:25→16:20)
[2021-05-31] MEDS: CETIRIZINE 10 MG TABLET PO SCH (08:25)
[2021-05-31] MEDS: SODIUM CHLORIDE 0.9% 1,000 ML IV SCH ×3 (09:38→09:39)
[2021-05-31] MEDS: INSULIN REGULAR 100 UNIT/ML SUBCUT SCH ×4 (09:38→21:08)
[2021-06-01 06:36] LABS: Basophils % 0.6 % (0.0-0.8); Eosinophils # 0.2 10*3/uL (0.0-0.87); Eosinophils % 3.3 % (0.00-10.9); Hematocrit 23.1 VOL% (42.0-52.0); Hemoglobin 7.2 GM/DL (14.0-18.0); Immature Granulocytes % 0.4 %; Immature Granulocytes Absolute 0.03 #; Lymphocytes % 13.8 % (21.2-54.2); Mean Corpuscular HGB Conc 31.2 GM/DL (32-36); Mean Corpuscular Volume 94.7 FL (87-102); Mean Platelet Volume 9.7 FL (9.6-12.0); Monocytes % 10.4 % (1.7-12.7); Neutrophils % 71.5 % (38.7-73.9); Platelet Count 149 T/CUMM (130-400); Red Blood Count 2.44 MC/CUMM (3.8-5.5); Red Cell Distribution Width 16.6 % (9.3-17.3); White Blood Count 7.2 T/CUMM (4-12)
[2021-06-01 06:49] LABS: Calcium 7.9 MG/DL (8.5-10.1); Osmolality,Calculated 307.3 MOS/KG (273-304); Potassium 4.4 MMOL/L (3.5-5.1)
[2021-06-01] MEDS: INSULIN REGULAR 100 UNIT/ML SUBCUT SCH ×4 (08:00→21:00)
[2021-06-01] MEDS: carvediloL 12.5 MG TABLET PO SCH ×2 (08:32→16:41)
[2021-06-01] MEDS: SEVELAMER CARBONATE 800 MG TABLET PO SCH ×3 (08:32→17:59)
[2021-06-01] MEDS: BACILLUS COAGULANS CAPLET PO SCH (08:33)
[2021-06-01] MEDS: amLODIPine 10 MG TABLET PO SCH (08:33)
[2021-06-01] MEDS: ATORVASTATIN 20 MG TABLET PO SCH (08:33)
[2021-06-01] MEDS: FENOFIBRATE 145 MG TABLET PO SCH (08:33)
[2021-06-01] MEDS: CETIRIZINE 10 MG TABLET PO SCH (08:33)
[2021-06-01] MEDS: PANTOPRAZOLE 40 MG VIAL IV SCH ×2 (08:37→21:00)
[2021-06-02 04:38] LABS: Basophils % 0.4 % (0.0-0.8); Eosinophils # 0.3 10*3/uL (0.0-0.87); Eosinophils % 3.4 % (0.00-10.9); Hematocrit 21.9 VOL% (42.0-52.0); Hemoglobin 6.7 GM/DL (14.0-18.0); Immature Granulocytes % 0.5 %; Immature Granulocytes Absolute 0.04 #; Lymphocytes # 0.9 10*3/uL (1.4-4.0); Lymphocytes % 11.9 % (21.2-54.2); Mean Corpuscular HGB Conc 30.6 GM/DL (32-36); Mean Corpuscular Volume 96.1 FL (87-102); Mean Platelet Volume 9.7 FL (9.6-12.0); Monocytes % 10.8 % (1.7-12.7); Platelet Count 145 T/CUMM (130-400); Red Blood Count 2.28 MC/CUMM (3.8-5.5); Red Cell Distribution Width 16.7 % (9.3-17.3); White Blood Count 7.6 T/CUMM (4-12)
[2021-06-02 05:09] LABS: Calcium 7.7 MG/DL (8.5-10.1); Osmolality,Calculated 308.4 MOS/KG (273-304); Potassium 4.7 MMOL/L (3.5-5.1)
[2021-06-02] MEDS: INSULIN REGULAR 100 UNIT/ML SUBCUT SCH ×4 (08:22→20:42)
[2021-06-02] MEDS ORDERED: SODIUM CHLORIDE 0.9% 1,000 ML IV PRN (08:56)
[2021-06-02] MEDS: amLODIPine 10 MG TABLET PO SCH (09:51)
[2021-06-02] MEDS: carvediloL 12.5 MG TABLET PO SCH ×2 (09:51→17:05)
[2021-06-02] MEDS: PANTOPRAZOLE 40 MG VIAL IV SCH ×2 (09:51→20:42)
[2021-06-02] MEDS: BACILLUS COAGULANS CAPLET PO SCH (10:11)
[2021-06-02] MEDS: ATORVASTATIN 20 MG TABLET PO SCH (10:11)
[2021-06-02] MEDS: SEVELAMER CARBONATE 800 MG TABLET PO SCH ×3 (10:11→17:05)
[2021-06-02] MEDS: CETIRIZINE 10 MG TABLET PO SCH (10:11)
[2021-06-02] MEDS: FENOFIBRATE 145 MG TABLET PO SCH (10:11)
[2021-06-03 04:49] LABS: Basophils % 0.5 % (0.0-0.8); Eosinophils # 0.3 10*3/uL (0.0-0.87); Eosinophils % 3.8 % (0.00-10.9); Hematocrit 26.1 VOL% (42.0-52.0); Immature Granulocytes % 0.3 %; Immature Granulocytes Absolute 0.02 #; Lymphocytes # 0.7 10*3/uL (1.4-4.0); Lymphocytes % 10.8 % (21.2-54.2); Mean Corpuscular HGB Conc 30.7 GM/DL (32-36); Mean Corpuscular Volume 96.7 FL (87-102); Mean Platelet Volume 9.5 FL (9.6-12.0); Monocytes % 9.9 % (1.7-12.7); Neutrophils % 74.7 % (38.7-73.9); Platelet Count 151 T/CUMM (130-400); Red Cell Distribution Width 16.8 % (9.3-17.3); White Blood Count 6.7 T/CUMM (4-12)
[2021-06-03 05:02] LABS: Calcium 7.8 MG/DL (8.5-10.1); Osmolality,Calculated 316.4 MOS/KG (273-304); Potassium 4.8 MMOL/L (3.5-5.1)
[2021-06-03] MEDS: INSULIN REGULAR 100 UNIT/ML SUBCUT SCH ×4 (07:29→21:04)
[2021-06-03] MEDS: PANTOPRAZOLE 40 MG VIAL IV SCH ×2 (09:15→21:04)
[2021-06-03] MEDS ORDERED: HEPARIN 5,000 UNIT/1 ML VIAL ONE ×2 (10:23→11:26)
[2021-06-03] MEDS ORDERED: BUPIVACAINE MPF 0.25% 30 ML VIAL ONE (10:23)
[2021-06-03] MEDS ORDERED: LIDOCAINE 1% 50 ML VIAL ONE (10:23)
[2021-06-03] MEDS ORDERED: ETOMIDATE 40 MG/20 ML VIAL IV ONE (10:24)
[2021-06-03] MEDS ORDERED: ONDANSETRON 4 MG/2 ML VIAL ONE (10:24)
[2021-06-03] MEDS ORDERED: LIDOCAINE 2% 5 ML VIAL ONE (10:24)
[2021-06-03] MEDS ORDERED: propofoL 200 MG/20 ML VIAL IV ONE (10:24)
[2021-06-03] MEDS ORDERED: fentaNYL 100 MCG/2 ML VIAL ONE (10:25)
[2021-06-03] MEDS ORDERED: MIDAZOLAM 2 MG/2 ML VIAL ONE (10:25)
[2021-06-03] MEDS ORDERED: FAMOTIDINE 20 MG/2 ML VIAL IV ONE (10:28)
[2021-06-03] MEDS ORDERED: ePHEDrine 50 MG/ML VIAL ONE (10:59)
[2021-06-03] MEDS ORDERED: SODIUM CHLORIDE 0.9% 250 ML IV SCH (11:00)
[2021-06-03] MEDS: SEVELAMER CARBONATE 800 MG TABLET PO SCH ×3 (11:51→18:07)
[2021-06-03] MEDS: carvediloL 12.5 MG TABLET PO SCH ×2 (11:51→18:07)
[2021-06-03] MEDS: BACILLUS COAGULANS CAPLET PO SCH (11:51)
[2021-06-03] MEDS: ATORVASTATIN 20 MG TABLET PO SCH (11:51)
[2021-06-03] MEDS: CETIRIZINE 10 MG TABLET PO SCH (12:00)
[2021-06-03] MEDS: FENOFIBRATE 145 MG TABLET PO SCH (12:00)
[2021-06-03] MEDS: amLODIPine 10 MG TABLET PO SCH (12:00)
[2021-06-03] MEDS ORDERED: SEVOFLURANE 1 UNIT/15 MINUTE INH ONE (12:43)
[2021-06-03] MEDS ORDERED: HEPARIN 10,000 UNIT/10 ML VIAL IV ONE (17:30)
[2021-06-04 05:43] LABS: Basophils % 0.4 % (0.0-0.8); Eosinophils # 0.2 10*3/uL (0.0-0.87); Eosinophils % 2.6 % (0.00-10.9); Hemoglobin 7.8 GM/DL (14.0-18.0); Immature Granulocytes % 0.3 %; Immature Granulocytes Absolute 0.02 #; Lymphocytes # 0.6 10*3/uL (1.4-4.0); Lymphocytes % 8.9 % (21.2-54.2); Mean Corpuscular HGB Conc 31.2 GM/DL (32-36); Mean Corpuscular Volume 94.7 FL (87-102); Mean Platelet Volume 9.9 FL (9.6-12.0); Monocytes % 12.8 % (1.7-12.7); Platelet Count 143 T/CUMM (130-400); Red Blood Count 2.64 MC/CUMM (3.8-5.5); Red Cell Distribution Width 16.8 % (9.3-17.3); White Blood Count 6.9 T/CUMM (4-12)
[2021-06-04 05:58] LABS: Calcium 7.5 MG/DL (8.5-10.1); Osmolality,Calculated 298.7 MOS/KG (273-304); Potassium 4.7 MMOL/L (3.5-5.1)
[2021-06-04] MEDS: INSULIN REGULAR 100 UNIT/ML SUBCUT SCH (07:30)
[2021-06-04 07:58] VITALS: BP 153/77
[2021-06-04] MEDS: ATORVASTATIN 20 MG TABLET PO SCH (09:13)
[2021-06-04] MEDS: SEVELAMER CARBONATE 800 MG TABLET PO SCH (09:13)
[2021-06-04] MEDS: amLODIPine 10 MG TABLET PO SCH (09:13)
[2021-06-04] MEDS: PANTOPRAZOLE 40 MG VIAL IV SCH (09:14)
[2021-06-04] MEDS: carvediloL 12.5 MG TABLET PO SCH (09:14)
[2021-06-04] MEDS: FENOFIBRATE 145 MG TABLET PO SCH (09:14)
[2021-06-04] MEDS: CETIRIZINE 10 MG TABLET PO SCH (09:14)
[2021-06-04] MEDS: BACILLUS COAGULANS CAPLET PO SCH (10:00)
[2021-06-10] MEDS ORDERED: BISACODYL 5 MG TABLET PO ONE (12:00)
[2021-06-10] MEDS ORDERED: POLYETHYLENE GLYCOL POWDER 255 GM BOTTLE PO ONE (18:00)
== END 2021-06-04 11:15 | disposition home or self-care (01) | DRG 981 ==
LOC: EDUNIT# → EDBD → N.ED 17:54 → SUATTDRO 05-14 02:38 → N.EDINP 05-14 02:38 → N.3E 05-14 16:25
PROVIDERS: ADMIT Internal Medicine; ATTEND Emergency Medicine

== ENCOUNTER 2022-02-17 08:39 | Inpatient (IN) ==
[2022-02-17 09:39] LABS: Basophils % 0.2 % (0.0-0.8); Eosinophils # 0.1 10*3/uL (0.0-0.87); Eosinophils % 0.5 % (0.00-10.9); Hemoglobin 11.5 GM/DL (14.0-18.0); Immature Granulocytes % 1.2 %; Immature Granulocytes Absolute 0.22 #; Lymphocytes # 0.9 10*3/uL (1.4-4.0); Lymphocytes % 5.2 % (21.2-54.2); Mean Corpuscular HGB Conc 30.3 GM/DL (32-36); Mean Corpuscular Volume 96.4 FL (87-102); Mean Platelet Volume 10.4 FL (9.6-12.0); Monocytes % 5.6 % (1.7-12.7); Neutrophils % 87.3 % (38.7-73.9); Platelet Count 224 T/CUMM (130-400); Red Blood Count 3.94 MC/CUMM (3.8-5.5); Red Cell Distribution Width 14.3 % (9.3-17.3)
[2022-02-17 09:56] LABS: Albumin 3.3 G/DL (3.4-5.0); Bilirubin,Total 0.6 MG/DL (0.20-1.00); Osmolality,Calculated 291.8 MOS/KG (273-304); Potassium 4.6 MMOL/L (3.5-5.1); Total Protein 7.5 G/DL (6.4-8.2)
[2022-02-17] MEDS ORDERED: ERTAPENEM 1,000 MG in SODIUM CHLORIDE 0.9% 100 ML IV SCH (10:30)
[2022-02-17] MEDS ORDERED: MAGNESIUM SULF RIDER 4 GM/100 ML PREMIX IV PRN (10:44)
[2022-02-17] MEDS ORDERED: MAGNESIUM SULF RIDER 2 GM/50 ML PREMIX IV PRN (10:44)
[2022-02-17] MEDS ORDERED: MORPHINE 2 MG/1 ML SYRINGE IV PRN (10:44)
[2022-02-17] MEDS ORDERED: GLUCAGON 1 MG VIAL IM PRN (10:55)
[2022-02-17] MEDS ORDERED: DEXTROSE 10% 250 ML BAG IV PRN (10:55)
[2022-02-17] MEDS: ONDANSETRON 4 MG/2 ML VIAL IV PRN ×2 (12:44→20:16)
[2022-02-17] MEDS: INSULIN LISPRO 100 UNIT/ML SUBCUT SCH ×2 (12:58→17:54)
[2022-02-17] MEDS ORDERED: ERTAPENEM 1,000 MG in SODIUM CHLORIDE 0.9% 100 ML IV ONE (13:00)
[2022-02-17] MEDS: SEVELAMER CARBONATE 800 MG TABLET PO SCH ×2 (13:20→16:26)
[2022-02-17] MEDS: PIPERACILLIN/TAZOBACTAM 3,375 MG in SODIUM CHLORIDE 0.9% 100 ML IV SCH (14:19)
[2022-02-17] MEDS: HYDROmorphone 1 MG/1 ML SYRINGE IV PRN ×2 (16:51→20:15)
[2022-02-17] MEDS: carvediloL 6.25 MG TABLET PO SCH (21:31)
[2022-02-17] MEDS: HEPARIN 5,000 UNIT/1 ML VIAL SUBCUT SCH (21:31)
[2022-02-18] MEDS: INSULIN LISPRO 100 UNIT/ML SUBCUT SCH ×4 (00:25→18:17)
[2022-02-18] MEDS: HYDROmorphone 1 MG/1 ML SYRINGE IV PRN ×4 (00:58→21:38)
[2022-02-18] MEDS: PIPERACILLIN/TAZOBACTAM 3,375 MG in SODIUM CHLORIDE 0.9% 100 ML IV SCH ×2 (02:13→16:08)
[2022-02-18 06:16] LABS: Basophils % 0.2 % (0.0-0.8); Eosinophils # 0.1 10*3/uL (0.0-0.87); Eosinophils % 0.3 % (0.00-10.9); Hemoglobin 9.9 GM/DL (14.0-18.0); Immature Granulocytes % 0.7 %; Lymphocytes # 0.6 10*3/uL (1.4-4.0); Mean Corpuscular Volume 99.1 FL (87-102); Mean Platelet Volume 10.1 FL (9.6-12.0); Monocytes # 1.2 10*3/uL (0.11-0.8); Monocytes % 7.8 % (1.7-12.7); Platelet Count 146 T/CUMM (130-400); Red Blood Count 3.33 MC/CUMM (3.8-5.5); Red Cell Distribution Width 14.6 % (9.3-17.3); White Blood Count 14.9 T/CUMM (4-12)
[2022-02-18 06:38] LABS: Band Neutrophils 4 % (0-10); Eosinophils 1 % (0-10); Lymphocytes 2 % (20-55); Total Cells Counted 100
[2022-02-18 06:39] LABS: Hypochromia Slight; Microcytosis Slight
[2022-02-18 06:40] LABS: Platelet Estimate Adequate
[2022-02-18 06:52] LABS: Albumin 2.5 G/DL (3.4-5.0); Bilirubin,Total 0.8 MG/DL (0.20-1.00); Calcium 8.7 MG/DL (8.5-10.1); Osmolality,Calculated 293.7 MOS/KG (273-304); Potassium 4.7 MMOL/L (3.5-5.1); Total Protein 6.7 G/DL (6.4-8.2)
[2022-02-18] MEDS: ATORVASTATIN 20 MG TABLET PO SCH (08:04)
[2022-02-18] MEDS: HEPARIN 5,000 UNIT/1 ML VIAL SUBCUT SCH ×2 (08:04→21:03)
[2022-02-18] MEDS: carvediloL 6.25 MG TABLET PO SCH ×2 (08:04→21:03)
[2022-02-18] MEDS: amLODIPine 10 MG TABLET PO SCH (08:04)
[2022-02-18] MEDS: SEVELAMER CARBONATE 800 MG TABLET PO SCH ×3 (08:04→16:07)
[2022-02-18] MEDS: PANTOPRAZOLE 40 MG TABLET PO SCH (08:05)
[2022-02-18] MEDS: FENOFIBRATE 145 MG TABLET PO SCH (08:05)
[2022-02-18 15:33] LABS: Folate 7.32 NG/ML (5.38-24.0)
[2022-02-18] MEDS: ONDANSETRON 4 MG/2 ML VIAL IV PRN (17:13)
[2022-02-19] MEDS: INSULIN LISPRO 100 UNIT/ML SUBCUT SCH ×4 (03:47→17:29)
[2022-02-19] MEDS: PIPERACILLIN/TAZOBACTAM 3,375 MG in SODIUM CHLORIDE 0.9% 100 ML IV SCH ×2 (05:00→16:35)
[2022-02-19] MEDS: ONDANSETRON 4 MG/2 ML VIAL IV PRN (07:38)
[2022-02-19] MEDS: HYDROmorphone 1 MG/1 ML SYRINGE IV PRN (07:38)
[2022-02-19 07:43] LABS: Basophils % 0.2 % (0.0-0.8); Eosinophils % 0.2 % (0.00-10.9); Hematocrit 33.2 VOL% (42.0-52.0); Hemoglobin 9.9 GM/DL (14.0-18.0); Immature Granulocytes % 2.6 %; Immature Granulocytes Absolute 0.41 #; Lymphocytes # 0.5 10*3/uL (1.4-4.0); Lymphocytes % 3.2 % (21.2-54.2); Mean Corpuscular HGB Conc 29.8 GM/DL (32-36); Mean Corpuscular Volume 98.8 FL (87-102); Mean Platelet Volume 10.2 FL (9.6-12.0); Monocytes # 1.4 10*3/uL (0.11-0.8); Monocytes % 9.1 % (1.7-12.7); Neutrophils % 84.7 % (38.7-73.9); Platelet Count 150 T/CUMM (130-400); Red Blood Count 3.36 MC/CUMM (3.8-5.5); Red Cell Distribution Width 14.5 % (9.3-17.3); White Blood Count 15.6 T/CUMM (4-12)
[2022-02-19 07:58] LABS: Calcium 8.8 MG/DL (8.5-10.1); Osmolality,Calculated 284.2 MOS/KG (273-304); Potassium 4.8 MMOL/L (3.5-5.1)
[2022-02-19] MEDS: carvediloL 6.25 MG TABLET PO SCH ×2 (08:02→23:18)
[2022-02-19] MEDS: ASPIRIN EC 81 MG TABLET PO SCH (08:02)
[2022-02-19] MEDS: ATORVASTATIN 20 MG TABLET PO SCH (08:02)
[2022-02-19] MEDS: HEPARIN 5,000 UNIT/1 ML VIAL SUBCUT SCH ×2 (08:02→21:24)
[2022-02-19] MEDS: SEVELAMER CARBONATE 800 MG TABLET PO SCH ×3 (08:02→16:35)
[2022-02-19] MEDS: PANTOPRAZOLE 40 MG TABLET PO SCH (08:03)
[2022-02-19] MEDS: FENOFIBRATE 145 MG TABLET PO SCH (08:03)
[2022-02-19] MEDS: amLODIPine 10 MG TABLET PO SCH (08:03)
[2022-02-19 08:04] LABS: Eosinophils 1 % (0-10); Hypochromia Slight; Lymphocytes 1 % (20-55); Microcytosis Slight; Platelet Estimate Adequate; Total Cells Counted 100
[2022-02-19] MEDS ORDERED: CHOLECALCIFEROL 1,000 UNIT TABLET PO ONE (16:34)
[2022-02-19] MEDS ORDERED: FERRIC GLUCONATE COMPLEX 125 MG in SODIUM CHLORIDE 0.9% 100 ML IV ONE ×2 (16:34→23:00)
[2022-02-20] MEDS: INSULIN LISPRO 100 UNIT/ML SUBCUT SCH ×4 (00:36→19:20)
[2022-02-20] MEDS ORDERED: PHENOL 1.4% THROAT SPRAY 177 ML BOTTLE PO PRN (03:19)
[2022-02-20] MEDS: PIPERACILLIN/TAZOBACTAM 3,375 MG in SODIUM CHLORIDE 0.9% 100 ML IV SCH ×2 (05:55→17:38)
[2022-02-20] MEDS: HEPARIN 5,000 UNIT/1 ML VIAL SUBCUT SCH ×2 (10:00→21:00)
[2022-02-20] MEDS: PANTOPRAZOLE 40 MG TABLET PO SCH (10:01)
[2022-02-20] MEDS: ASPIRIN EC 81 MG TABLET PO SCH (10:01)
[2022-02-20] MEDS: amLODIPine 10 MG TABLET PO SCH (10:01)
[2022-02-20] MEDS: carvediloL 6.25 MG TABLET PO SCH ×2 (10:01→21:01)
[2022-02-20] MEDS: ATORVASTATIN 20 MG TABLET PO SCH (10:01)
[2022-02-20] MEDS: SEVELAMER CARBONATE 800 MG TABLET PO SCH ×3 (10:01→17:38)
[2022-02-20] MEDS: FENOFIBRATE 145 MG TABLET PO SCH (10:01)
[2022-02-20] MEDS: PANTOPRAZOLE 40 MG VIAL IV SCH ×2 (12:31→21:00)
[2022-02-21] MEDS: INSULIN LISPRO 100 UNIT/ML SUBCUT SCH ×4 (00:38→19:09)
[2022-02-21] MEDS: PIPERACILLIN/TAZOBACTAM 3,375 MG in SODIUM CHLORIDE 0.9% 100 ML IV SCH ×2 (05:40→17:51)
[2022-02-21 06:43] LABS: Basophils % 0.3 % (0.0-0.8); Eosinophils # 0.3 10*3/uL (0.0-0.87); Eosinophils % 2.3 % (0.00-10.9); Hematocrit 33.2 VOL% (42.0-52.0); Hemoglobin 10.1 GM/DL (14.0-18.0); Immature Granulocytes % 0.9 %; Immature Granulocytes Absolute 0.11 #; Lymphocytes # 0.8 10*3/uL (1.4-4.0); Lymphocytes % 6.5 % (21.2-54.2); Mean Corpuscular HGB Conc 30.4 GM/DL (32-36); Mean Corpuscular Volume 98.5 FL (87-102); Mean Platelet Volume 10.2 FL (9.6-12.0); Monocytes # 1.6 10*3/uL (0.11-0.8); Monocytes % 13.2 % (1.7-12.7); NRBC # 0.03 10*3/uL; Neutrophils % 76.8 % (38.7-73.9); Platelet Count 201 T/CUMM (130-400); Red Blood Count 3.37 MC/CUMM (3.8-5.5); Red Cell Distribution Width 14.5 % (9.3-17.3); White Blood Count 11.9 T/CUMM (4-12)
[2022-02-21 07:05] LABS: Albumin 2.1 G/DL (3.4-5.0); Bilirubin,Total 0.9 MG/DL (0.20-1.00); Osmolality,Calculated 296.1 MOS/KG (273-304); Total Protein 7.4 G/DL (6.4-8.2)
[2022-02-21] MEDS: SEVELAMER CARBONATE 800 MG TABLET PO SCH ×3 (12:37→17:50)
[2022-02-21] MEDS: ATORVASTATIN 20 MG TABLET PO SCH (12:37)
[2022-02-21] MEDS: ASPIRIN EC 81 MG TABLET PO SCH (12:37)
[2022-02-21] MEDS: FENOFIBRATE 145 MG TABLET PO SCH (12:38)
[2022-02-21] MEDS: CHOLECALCIFEROL 5,000 UNIT TABLET PO SCH (12:38)
[2022-02-21] MEDS: HEPARIN 5,000 UNIT/1 ML VIAL SUBCUT SCH ×2 (12:38→21:16)
[2022-02-21] MEDS: carvediloL 6.25 MG TABLET PO SCH ×2 (12:38→21:16)
[2022-02-21] MEDS: amLODIPine 10 MG TABLET PO SCH (12:41)
[2022-02-21] MEDS: PANTOPRAZOLE 40 MG VIAL IV SCH ×2 (12:41→21:16)
[2022-02-21] MEDS: FAT EMULSION 20% 250 ML IV SCH (15:40)
[2022-02-21] MEDS: AMINO ACIDS/DEXT/LYTES 4.25-5% 2,000 ML IV SCH (17:51)
[2022-02-21] MEDS: HYDROmorphone 1 MG/1 ML SYRINGE IV PRN (21:16)
[2022-02-22] MEDS: INSULIN LISPRO 100 UNIT/ML SUBCUT SCH ×4 (00:30→18:43)
[2022-02-22] MEDS: PIPERACILLIN/TAZOBACTAM 3,375 MG in SODIUM CHLORIDE 0.9% 100 ML IV SCH ×2 (04:48→18:30)
[2022-02-22 06:37] LABS: Basophils % 0.2 % (0.0-0.8); Eosinophils # 0.3 10*3/uL (0.0-0.87); Eosinophils % 2.7 % (0.00-10.9); Hematocrit 29.6 VOL% (42.0-52.0); Hemoglobin 9.1 GM/DL (14.0-18.0); Immature Granulocytes % 1.9 %; Immature Granulocytes Absolute 0.17 #; Lymphocytes # 0.6 10*3/uL (1.4-4.0); Lymphocytes % 6.3 % (21.2-54.2); Mean Corpuscular HGB Conc 30.7 GM/DL (32-36); Mean Platelet Volume 10.1 FL (9.6-12.0); Monocytes # 1.2 10*3/uL (0.11-0.8); Monocytes % 13.4 % (1.7-12.7); NRBC # 0.04 10*3/uL; Neutrophils % 75.5 % (38.7-73.9); Platelet Count 200 T/CUMM (130-400); Red Blood Count 3.02 MC/CUMM (3.8-5.5); Red Cell Distribution Width 14.3 % (9.3-17.3); White Blood Count 9.1 T/CUMM (4-12)
[2022-02-22 06:54] LABS: Calcium 8.7 MG/DL (8.5-10.1); Osmolality,Calculated 290.5 MOS/KG (273-304); Potassium 3.9 MMOL/L (3.5-5.1)
[2022-02-22] MEDS: SEVELAMER CARBONATE 800 MG TABLET PO SCH ×3 (08:57→18:30)
[2022-02-22] MEDS: HEPARIN 5,000 UNIT/1 ML VIAL SUBCUT SCH ×2 (08:57→21:15)
[2022-02-22] MEDS: PANTOPRAZOLE 40 MG VIAL IV SCH ×2 (08:57→21:15)
[2022-02-22] MEDS: ATORVASTATIN 20 MG TABLET PO SCH (08:57)
[2022-02-22] MEDS: FENOFIBRATE 145 MG TABLET PO SCH (08:58)
[2022-02-22] MEDS: ASPIRIN EC 81 MG TABLET PO SCH (08:58)
[2022-02-22] MEDS: amLODIPine 10 MG TABLET PO SCH (08:58)
[2022-02-22] MEDS: carvediloL 6.25 MG TABLET PO SCH ×2 (08:58→21:15)
[2022-02-22] MEDS: CHOLECALCIFEROL 5,000 UNIT TABLET PO SCH (08:58)
[2022-02-22] MEDS: FAT EMULSION 20% 250 ML IV SCH (14:57)
[2022-02-22] MEDS: AMINO ACIDS/DEXT/LYTES 4.25-5% 2,000 ML IV SCH (18:30)
[2022-02-22] MEDS: ACETAMINOPHEN 325 MG TABLET PO PRN (23:16)
[2022-02-23] MEDS: INSULIN LISPRO 100 UNIT/ML SUBCUT SCH ×4 (00:35→17:42)
[2022-02-23] MEDS: HYDROmorphone 1 MG/1 ML SYRINGE IV PRN (03:00)
[2022-02-23] MEDS: PIPERACILLIN/TAZOBACTAM 3,375 MG in SODIUM CHLORIDE 0.9% 100 ML IV SCH (04:58)
[2022-02-23 06:19] LABS: Basophils % 0.1 % (0.0-0.8); Eosinophils # 0.2 10*3/uL (0.0-0.87); Eosinophils % 2.5 % (0.00-10.9); Hematocrit 28.4 VOL% (42.0-52.0); Hemoglobin 8.4 GM/DL (14.0-18.0); Immature Granulocytes % 2.4 %; Immature Granulocytes Absolute 0.21 #; Lymphocytes # 0.7 10*3/uL (1.4-4.0); Lymphocytes % 7.9 % (21.2-54.2); Mean Corpuscular HGB Conc 29.6 GM/DL (32-36); Mean Corpuscular Volume 98.6 FL (87-102); Mean Platelet Volume 10.3 FL (9.6-12.0); Monocytes # 1.1 10*3/uL (0.11-0.8); Monocytes % 12.8 % (1.7-12.7); NRBC # 0.02 10*3/uL; Neutrophils % 74.3 % (38.7-73.9); Platelet Count 187 T/CUMM (130-400); Red Blood Count 2.88 MC/CUMM (3.8-5.5); Red Cell Distribution Width 14.2 % (9.3-17.3); White Blood Count 8.7 T/CUMM (4-12)
[2022-02-23 06:36] LABS: Calcium 8.4 MG/DL (8.5-10.1); Osmolality,Calculated 296.7 MOS/KG (273-304); Potassium 4.2 MMOL/L (3.5-5.1); Risk Ratio 3.5; VLDL Cholesterol 42.2 MG/DL
[2022-02-23] MEDS: ATORVASTATIN 20 MG TABLET PO SCH (09:41)
[2022-02-23] MEDS: FENOFIBRATE 145 MG TABLET PO SCH (09:41)
[2022-02-23] MEDS: ASPIRIN EC 81 MG TABLET PO SCH (09:41)
[2022-02-23] MEDS: SEVELAMER CARBONATE 800 MG TABLET PO SCH ×3 (09:41→18:26)
[2022-02-23] MEDS: PANTOPRAZOLE 40 MG VIAL IV SCH ×2 (09:42→20:32)
[2022-02-23] MEDS: CHOLECALCIFEROL 5,000 UNIT TABLET PO SCH (09:42)
[2022-02-23] MEDS: HEPARIN 5,000 UNIT/1 ML VIAL SUBCUT SCH ×2 (10:10→20:32)
[2022-02-23] MEDS: amLODIPine 10 MG TABLET PO SCH (12:10)
[2022-02-23] MEDS: FAT EMULSION 20% 250 ML IV SCH (14:42)
[2022-02-23] MEDS: carvediloL 6.25 MG TABLET PO SCH ×2 (15:07→20:32)
[2022-02-23] MEDS: AMINO ACIDS/DEXT/LYTES 4.25-5% 2,000 ML IV SCH (17:41)
[2022-02-23] MEDS: MEROPENEM 500 MG in SODIUM CHLORIDE 0.9% 100 ML IV SCH (17:43)
[2022-02-24] MEDS: INSULIN LISPRO 100 UNIT/ML SUBCUT SCH ×3 (01:36→13:26)
[2022-02-24] MEDS: SEVELAMER CARBONATE 800 MG TABLET PO SCH ×3 (08:37→17:18)
[2022-02-24] MEDS: FENOFIBRATE 145 MG TABLET PO SCH (08:42)
[2022-02-24] MEDS: ASPIRIN EC 81 MG TABLET PO SCH (08:42)
[2022-02-24] MEDS: PANTOPRAZOLE 40 MG VIAL IV SCH ×2 (08:42→20:44)
[2022-02-24] MEDS: ATORVASTATIN 20 MG TABLET PO SCH (08:42)
[2022-02-24] MEDS: HEPARIN 5,000 UNIT/1 ML VIAL SUBCUT SCH ×2 (08:43→20:44)
[2022-02-24] MEDS: CHOLECALCIFEROL 5,000 UNIT TABLET PO SCH (09:48)
[2022-02-24] MEDS: carvediloL 6.25 MG TABLET PO SCH (09:50)
[2022-02-24] MEDS: amLODIPine 10 MG TABLET PO SCH (09:51)
[2022-02-24] MEDS: MEROPENEM 500 MG in SODIUM CHLORIDE 0.9% 100 ML IV SCH (17:17)
[2022-02-24] MEDS: FAT EMULSION 20% 250 ML IV SCH (17:17)
[2022-02-24] MEDS: AMINO ACIDS/DEXT/LYTES 4.25-5% 2,000 ML IV SCH (18:02)
[2022-02-25] MEDS: ACETAMINOPHEN 325 MG TABLET PO PRN ×3 (00:54→21:08)
[2022-02-25] MEDS: INSULIN LISPRO 100 UNIT/ML SUBCUT SCH ×5 (00:54→18:59)
[2022-02-25] MEDS: SEVELAMER CARBONATE 800 MG TABLET PO SCH ×3 (10:30→17:24)
[2022-02-25] MEDS: ASPIRIN EC 81 MG TABLET PO SCH (10:30)
[2022-02-25] MEDS: CHOLECALCIFEROL 5,000 UNIT TABLET PO SCH (10:30)
[2022-02-25] MEDS: FENOFIBRATE 145 MG TABLET PO SCH (10:30)
[2022-02-25] MEDS: ATORVASTATIN 20 MG TABLET PO SCH (10:30)
[2022-02-25] MEDS: PANTOPRAZOLE 40 MG VIAL IV SCH ×2 (10:36→21:07)
[2022-02-25] MEDS: HEPARIN 5,000 UNIT/1 ML VIAL SUBCUT SCH ×2 (10:39→21:13)
[2022-02-25] MEDS: FAT EMULSION 20% 250 ML IV SCH (15:17)
[2022-02-25] MEDS: MEROPENEM 500 MG in SODIUM CHLORIDE 0.9% 100 ML IV SCH (17:43)
[2022-02-25] MEDS: AMINO ACIDS/DEXT/LYTES 4.25-5% 2,000 ML IV SCH (18:37)
[2022-02-26] MEDS: INSULIN LISPRO 100 UNIT/ML SUBCUT SCH ×4 (00:02→18:36)
[2022-02-26] MEDS: ACETAMINOPHEN 325 MG TABLET PO PRN ×2 (04:00→18:36)
[2022-02-26 07:17] LABS: Basophils % 0.2 % (0.0-0.8); Eosinophils # 0.2 10*3/uL (0.0-0.87); Hematocrit 27.5 VOL% (42.0-52.0); Hemoglobin 8.6 GM/DL (14.0-18.0); Immature Granulocytes % 4.8 %; Immature Granulocytes Absolute 0.56 #; Lymphocytes # 0.7 10*3/uL (1.4-4.0); Lymphocytes % 6.3 % (21.2-54.2); Mean Corpuscular HGB Conc 31.3 GM/DL (32-36); Mean Corpuscular Volume 96.8 FL (87-102); Monocytes # 1.4 10*3/uL (0.11-0.8); Monocytes % 12.1 % (1.7-12.7); Neutrophils % 74.6 % (38.7-73.9); Platelet Count 207 T/CUMM (130-400); Red Blood Count 2.84 MC/CUMM (3.8-5.5); Red Cell Distribution Width 14.5 % (9.3-17.3); White Blood Count 11.6 T/CUMM (4-12)
[2022-02-26 07:51] LABS: Calcium 8.8 MG/DL (8.5-10.1); Osmolality,Calculated 294.2 MOS/KG (273-304); Potassium 4.1 MMOL/L (3.5-5.1)
[2022-02-26 09:00] LABS: Lymphocytes 8 % (20-55); Platelet Estimate Adequate; Total Cells Counted 100
[2022-02-26 09:01] LABS: Hypochromia Slight; Microcytosis Slight
[2022-02-26] MEDS: PANTOPRAZOLE 40 MG VIAL IV SCH ×2 (09:20→21:42)
[2022-02-26] MEDS: SEVELAMER CARBONATE 800 MG TABLET PO SCH ×3 (09:20→17:50)
[2022-02-26] MEDS: ASPIRIN EC 81 MG TABLET PO SCH (09:21)
[2022-02-26] MEDS: ATORVASTATIN 20 MG TABLET PO SCH (09:24)
[2022-02-26] MEDS: HEPARIN 5,000 UNIT/1 ML VIAL SUBCUT SCH ×2 (09:24→21:41)
[2022-02-26] MEDS: FENOFIBRATE 145 MG TABLET PO SCH (09:24)
[2022-02-26] MEDS: CHOLECALCIFEROL 5,000 UNIT TABLET PO SCH (09:24)
[2022-02-26] MEDS: MEROPENEM 500 MG in SODIUM CHLORIDE 0.9% 100 ML IV SCH (17:51)
[2022-02-27] MEDS: INSULIN LISPRO 100 UNIT/ML SUBCUT SCH ×4 (00:42→18:28)
[2022-02-27 09:33] LABS: Basophils % 0.2 % (0.0-0.8); Eosinophils # 0.2 10*3/uL (0.0-0.87); Eosinophils % 1.4 % (0.00-10.9); Hematocrit 27.8 VOL% (42.0-52.0); Hemoglobin 8.1 GM/DL (14.0-18.0); Immature Granulocytes % 4.5 %; Lymphocytes # 1.2 10*3/uL (1.4-4.0); Mean Corpuscular HGB Conc 29.1 GM/DL (32-36); Mean Platelet Volume 9.3 FL (9.6-12.0); Monocytes # 1.7 10*3/uL (0.11-0.8); Monocytes % 10.7 % (1.7-12.7); Neutrophils % 75.2 % (38.7-73.9); Platelet Count 249 T/CUMM (130-400); Red Cell Distribution Width 14.6 % (9.3-17.3); White Blood Count 15.5 T/CUMM (4-12)
[2022-02-27 09:48] LABS: Calcium 8.4 MG/DL (8.5-10.1); Osmolality,Calculated 292.4 MOS/KG (273-304); Potassium 3.8 MMOL/L (3.5-5.1)
[2022-02-27 10:06] LABS: Hypochromia Slight; Microcytosis Slight; Platelet Estimate Adequate
[2022-02-27] MEDS: PANTOPRAZOLE 40 MG VIAL IV SCH ×2 (10:17→20:57)
[2022-02-27] MEDS: ASPIRIN EC 81 MG TABLET PO SCH (10:18)
[2022-02-27] MEDS: FENOFIBRATE 145 MG TABLET PO SCH (10:18)
[2022-02-27] MEDS: SEVELAMER CARBONATE 800 MG TABLET PO SCH ×3 (10:18→18:28)
[2022-02-27] MEDS: ATORVASTATIN 20 MG TABLET PO SCH (10:18)
[2022-02-27] MEDS: HEPARIN 5,000 UNIT/1 ML VIAL SUBCUT SCH ×2 (10:18→20:56)
[2022-02-27] MEDS: CHOLECALCIFEROL 5,000 UNIT TABLET PO SCH (10:18)
[2022-02-27] MEDS: MEROPENEM 500 MG in SODIUM CHLORIDE 0.9% 100 ML IV SCH (18:25)
[2022-02-28] MEDS: INSULIN LISPRO 100 UNIT/ML SUBCUT SCH ×4 (00:48→17:11)
[2022-02-28 05:04] LABS: Basophils % 0.3 % (0.0-0.8); Eosinophils # 0.3 10*3/uL (0.0-0.87); Eosinophils % 2.2 % (0.00-10.9); Hematocrit 26.1 VOL% (42.0-52.0); Hemoglobin 7.8 GM/DL (14.0-18.0); Immature Granulocytes % 4.9 %; Immature Granulocytes Absolute 0.57 #; Lymphocytes # 1.3 10*3/uL (1.4-4.0); Lymphocytes % 10.9 % (21.2-54.2); Mean Corpuscular HGB Conc 29.9 GM/DL (32-36); Mean Corpuscular Volume 99.2 FL (87-102); Mean Platelet Volume 9.5 FL (9.6-12.0); Monocytes # 1.3 10*3/uL (0.11-0.8); Monocytes % 11.2 % (1.7-12.7); Neutrophils % 70.5 % (38.7-73.9); Platelet Count 222 T/CUMM (130-400); Red Blood Count 2.63 MC/CUMM (3.8-5.5); Red Cell Distribution Width 14.5 % (9.3-17.3); White Blood Count 11.7 T/CUMM (4-12)
[2022-02-28 05:21] LABS: Calcium 8.1 MG/DL (8.5-10.1); Osmolality,Calculated 290.7 MOS/KG (273-304); Potassium 3.5 MMOL/L (3.5-5.1)
[2022-02-28 05:56] LABS: Band Neutrophils 1 % (0-10); Eosinophils 5 % (0-10); Lymphocytes 11 % (20-55); Total Cells Counted 100
[2022-02-28 05:57] LABS: Microcytosis Slight
[2022-02-28 05:58] LABS: Platelet Estimate Normal
[2022-02-28] MEDS: ACETAMINOPHEN 325 MG TABLET PO PRN (06:20)
[2022-02-28] MEDS: SEVELAMER CARBONATE 800 MG TABLET PO SCH ×3 (13:40→16:33)
[2022-02-28] MEDS: PANTOPRAZOLE 40 MG VIAL IV SCH ×2 (14:30→21:16)
[2022-02-28] MEDS: ASPIRIN EC 81 MG TABLET PO SCH (15:02)
[2022-02-28] MEDS: ATORVASTATIN 20 MG TABLET PO SCH (15:02)
[2022-02-28] MEDS: HEPARIN 5,000 UNIT/1 ML VIAL SUBCUT SCH ×2 (15:02→21:17)
[2022-02-28] MEDS: CHOLECALCIFEROL 5,000 UNIT TABLET PO SCH (15:03)
[2022-02-28] MEDS: FENOFIBRATE 145 MG TABLET PO SCH (15:03)
[2022-02-28] MEDS: MEROPENEM 500 MG in SODIUM CHLORIDE 0.9% 100 ML IV SCH (16:34)
[2022-03-01] MEDS: INSULIN LISPRO 100 UNIT/ML SUBCUT SCH ×4 (00:13→19:01)
[2022-03-01] MEDS: CHOLECALCIFEROL 5,000 UNIT TABLET PO SCH (10:56)
[2022-03-01] MEDS: SEVELAMER CARBONATE 800 MG TABLET PO SCH ×3 (10:57→19:39)
[2022-03-01] MEDS: ASPIRIN EC 81 MG TABLET PO SCH (10:57)
[2022-03-01] MEDS: HEPARIN 5,000 UNIT/1 ML VIAL SUBCUT SCH ×2 (10:59→20:21)
[2022-03-01] MEDS: FENOFIBRATE 145 MG TABLET PO SCH (10:59)
[2022-03-01] MEDS: ATORVASTATIN 20 MG TABLET PO SCH (12:42)
[2022-03-01] MEDS: PANTOPRAZOLE 40 MG VIAL IV SCH ×2 (15:17→20:16)
[2022-03-01] MEDS: MEROPENEM 500 MG in SODIUM CHLORIDE 0.9% 100 ML IV SCH (19:01)
[2022-03-02] MEDS: INSULIN LISPRO 100 UNIT/ML SUBCUT SCH ×4 (01:48→18:23)
[2022-03-02] MEDS: SEVELAMER CARBONATE 800 MG TABLET PO SCH ×3 (10:16→18:23)
[2022-03-02] MEDS: ATORVASTATIN 20 MG TABLET PO SCH (10:16)
[2022-03-02] MEDS: PANTOPRAZOLE 40 MG VIAL IV SCH ×3 (10:16→22:02)
[2022-03-02] MEDS: HEPARIN 5,000 UNIT/1 ML VIAL SUBCUT SCH ×2 (10:16→21:08)
[2022-03-02] MEDS: ASPIRIN EC 81 MG TABLET PO SCH (10:16)
[2022-03-02] MEDS: CHOLECALCIFEROL 5,000 UNIT TABLET PO SCH (10:17)
[2022-03-02] MEDS: FENOFIBRATE 145 MG TABLET PO SCH (10:17)
[2022-03-02] MEDS ORDERED: LOPERAMIDE 2 MG CAPSULE PO PRN (18:35)
[2022-03-02] MEDS: hydrALAZINE 20 MG/1 ML VIAL IV PRN ×2 (21:10→21:57)
[2022-03-03] MEDS: INSULIN LISPRO 100 UNIT/ML SUBCUT SCH ×5 (00:30→18:31)
[2022-03-03 06:00] LABS: Basophils % 0.3 % (0.0-0.8); Eosinophils # 0.3 10*3/uL (0.0-0.87); Eosinophils % 2.9 % (0.00-10.9); Hematocrit 25.4 VOL% (42.0-52.0); Hemoglobin 7.9 GM/DL (14.0-18.0); Immature Granulocytes % 4.2 %; Lymphocytes # 1.1 10*3/uL (1.4-4.0); Lymphocytes % 11.2 % (21.2-54.2); Mean Corpuscular HGB Conc 31.1 GM/DL (32-36); Mean Corpuscular Volume 96.9 FL (87-102); Mean Platelet Volume 9.5 FL (9.6-12.0); Monocytes # 0.9 10*3/uL (0.11-0.8); Monocytes % 9.8 % (1.7-12.7); Neutrophils % 71.6 % (38.7-73.9); Platelet Count 222 T/CUMM (130-400); Red Blood Count 2.62 MC/CUMM (3.8-5.5); White Blood Count 9.4 T/CUMM (4-12)
[2022-03-03 06:17] LABS: Calcium 8.1 MG/DL (8.5-10.1); Osmolality,Calculated 276.5 MOS/KG (273-304); Potassium 3.3 MMOL/L (3.5-5.1)
[2022-03-03] MEDS: SEVELAMER CARBONATE 800 MG TABLET PO SCH ×3 (09:43→17:47)
[2022-03-03] MEDS: HEPARIN 5,000 UNIT/1 ML VIAL SUBCUT SCH ×2 (09:43→20:40)
[2022-03-03] MEDS: ATORVASTATIN 20 MG TABLET PO SCH (09:43)
[2022-03-03] MEDS: ASPIRIN EC 81 MG TABLET PO SCH (09:43)
[2022-03-03] MEDS: FENOFIBRATE 145 MG TABLET PO SCH (09:43)
[2022-03-03] MEDS: CHOLECALCIFEROL 5,000 UNIT TABLET PO SCH (09:44)
[2022-03-03] MEDS ORDERED: AMOXICILLIN/CLAV 875 MG TABLET PO SCH (15:30)
[2022-03-03] MEDS: AMOXICILLIN/CLAV 500 MG TABLET PO SCH (17:47)
[2022-03-03] MEDS: PANTOPRAZOLE 40 MG TABLET PO SCH (20:40)
[2022-03-04] MEDS ORDERED: DEXTROSE 50% 25 GM/50 ML VIAL IV PRN (00:50)
[2022-03-04] MEDS ORDERED: GLUCAGON 1 MG VIAL IM PRN (00:50)
[2022-03-04] MEDS: INSULIN LISPRO 100 UNIT/ML SUBCUT SCH ×4 (05:05→18:05)
[2022-03-04 05:39] LABS: Calcium 8.1 MG/DL (8.5-10.1); Osmolality,Calculated 280.8 MOS/KG (273-304); Potassium 3.4 MMOL/L (3.5-5.1)
[2022-03-04] MEDS: AMOXICILLIN/CLAV 500 MG TABLET PO SCH (09:54)
[2022-03-04] MEDS: FENOFIBRATE 145 MG TABLET PO SCH (09:54)
[2022-03-04] MEDS: CHOLECALCIFEROL 5,000 UNIT TABLET PO SCH (09:54)
[2022-03-04] MEDS: SEVELAMER CARBONATE 800 MG TABLET PO SCH ×3 (09:55→18:05)
[2022-03-04] MEDS: ATORVASTATIN 20 MG TABLET PO SCH (09:55)
[2022-03-04] MEDS: PANTOPRAZOLE 40 MG TABLET PO SCH ×2 (09:55→21:40)
[2022-03-04] MEDS: ASPIRIN EC 81 MG TABLET PO SCH (09:55)
[2022-03-04] MEDS: HEPARIN 5,000 UNIT/1 ML VIAL SUBCUT SCH ×2 (09:55→21:40)
[2022-03-04] MEDS: VANCOMYCIN 125 MG CAPSULE PO SCH ×2 (13:24→18:05)
[2022-03-04] MEDS: BACILLUS COAGULANS CAPLET PO SCH (21:40)
[2022-03-05] MEDS: VANCOMYCIN 125 MG CAPSULE PO SCH ×4 (00:52→18:35)
[2022-03-05] MEDS: INSULIN LISPRO 100 UNIT/ML SUBCUT SCH ×4 (00:52→18:26)
[2022-03-05] MEDS ORDERED: BACILLUS COAGULANS CAPLET PO SCH (09:00)
[2022-03-05] MEDS: HEPARIN 5,000 UNIT/1 ML VIAL SUBCUT SCH ×2 (10:45→21:36)
[2022-03-05] MEDS: SEVELAMER CARBONATE 800 MG TABLET PO SCH ×3 (12:44→17:03)
[2022-03-05] MEDS: AMOXICILLIN/CLAV 500 MG TABLET PO SCH (12:46)
[2022-03-05] MEDS: FENOFIBRATE 145 MG TABLET PO SCH (12:47)
[2022-03-05] MEDS: BACILLUS COAGULANS CAPLET PO SCH ×2 (12:47→21:35)
[2022-03-05] MEDS: ASPIRIN EC 81 MG TABLET PO SCH (12:47)
[2022-03-05] MEDS: CHOLECALCIFEROL 5,000 UNIT TABLET PO SCH (12:47)
[2022-03-05] MEDS: ATORVASTATIN 20 MG TABLET PO SCH (12:47)
[2022-03-05] MEDS: PANTOPRAZOLE 40 MG TABLET PO SCH ×2 (12:47→21:36)
[2022-03-06] MEDS: INSULIN LISPRO 100 UNIT/ML SUBCUT SCH ×4 (00:38→18:34)
[2022-03-06] MEDS: VANCOMYCIN 125 MG CAPSULE PO SCH ×4 (01:24→18:35)
[2022-03-06] MEDS: HEPARIN 5,000 UNIT/1 ML VIAL SUBCUT SCH ×2 (09:47→20:26)
[2022-03-06] MEDS: ATORVASTATIN 20 MG TABLET PO SCH (09:47)
[2022-03-06] MEDS: SEVELAMER CARBONATE 800 MG TABLET PO SCH ×3 (09:47→17:09)
[2022-03-06] MEDS: BACILLUS COAGULANS CAPLET PO SCH ×2 (09:47→20:25)
[2022-03-06] MEDS: FENOFIBRATE 145 MG TABLET PO SCH (09:47)
[2022-03-06] MEDS: AMOXICILLIN/CLAV 500 MG TABLET PO SCH (09:47)
[2022-03-06] MEDS: PANTOPRAZOLE 40 MG TABLET PO SCH ×2 (09:47→20:25)
[2022-03-06] MEDS: ASPIRIN EC 81 MG TABLET PO SCH (09:47)
[2022-03-06] MEDS: CHOLECALCIFEROL 5,000 UNIT TABLET PO SCH (09:47)
[2022-03-07] MEDS: INSULIN LISPRO 100 UNIT/ML SUBCUT SCH ×4 (00:06→17:04)
[2022-03-07] MEDS: VANCOMYCIN 125 MG CAPSULE PO SCH ×4 (00:06→18:27)
[2022-03-07 05:45] LABS: Calcium 8.7 MG/DL (8.5-10.1); Osmolality,Calculated 288.5 MOS/KG (273-304); Potassium 3.8 MMOL/L (3.5-5.1)
[2022-03-07] MEDS: HEPARIN 5,000 UNIT/1 ML VIAL SUBCUT SCH ×2 (08:28→21:03)
[2022-03-07] MEDS: BACILLUS COAGULANS CAPLET PO SCH ×2 (08:35→21:03)
[2022-03-07] MEDS: ASPIRIN EC 81 MG TABLET PO SCH (08:35)
[2022-03-07] MEDS: SEVELAMER CARBONATE 800 MG TABLET PO SCH ×3 (08:36→16:19)
[2022-03-07] MEDS: CHOLECALCIFEROL 5,000 UNIT TABLET PO SCH (08:36)
[2022-03-07] MEDS: AMOXICILLIN/CLAV 500 MG TABLET PO SCH (08:36)
[2022-03-07] MEDS: ATORVASTATIN 20 MG TABLET PO SCH (08:36)
[2022-03-07] MEDS: PANTOPRAZOLE 40 MG TABLET PO SCH ×2 (08:36→21:03)
[2022-03-07] MEDS: FENOFIBRATE 145 MG TABLET PO SCH (08:36)
[2022-03-07] MEDS ORDERED: EPOETIN ALFA-EPBX 4,000 UNIT/ML VIAL IV PRN (11:41)
[2022-03-08] MEDS: VANCOMYCIN 125 MG CAPSULE PO SCH ×4 (00:29→18:30)
[2022-03-08] MEDS: INSULIN LISPRO 100 UNIT/ML SUBCUT SCH ×4 (00:29→18:24)
[2022-03-08 06:45] LABS: Basophils % 0.4 % (0.0-0.8); Eosinophils # 0.2 10*3/uL (0.0-0.87); Eosinophils % 4.9 % (0.00-10.9); Hematocrit 24.1 VOL% (42.0-52.0); Hemoglobin 7.1 GM/DL (14.0-18.0); Immature Granulocytes % 0.8 %; Immature Granulocytes Absolute 0.04 #; Lymphocytes # 0.9 10*3/uL (1.4-4.0); Mean Corpuscular HGB Conc 29.5 GM/DL (32-36); Mean Corpuscular Volume 100.8 FL (87-102); Mean Platelet Volume 9.4 FL (9.6-12.0); Monocytes # 0.6 10*3/uL (0.11-0.8); Monocytes % 12.6 % (1.7-12.7); Neutrophils % 63.3 % (38.7-73.9); Platelet Count 173 T/CUMM (130-400); Red Blood Count 2.39 MC/CUMM (3.8-5.5); Red Cell Distribution Width 14.2 % (9.3-17.3); White Blood Count 4.9 T/CUMM (4-12)
[2022-03-08 07:04] LABS: Calcium 8.2 MG/DL (8.5-10.1); Osmolality,Calculated 289.3 MOS/KG (273-304); Potassium 4.3 MMOL/L (3.5-5.1)
[2022-03-08] MEDS: SEVELAMER CARBONATE 800 MG TABLET PO SCH ×3 (09:02→17:22)
[2022-03-08] MEDS: AMOXICILLIN/CLAV 500 MG TABLET PO SCH (09:02)
[2022-03-08] MEDS: ASPIRIN EC 81 MG TABLET PO SCH (09:02)
[2022-03-08] MEDS: BACILLUS COAGULANS CAPLET PO SCH ×2 (09:02→21:17)
[2022-03-08] MEDS: PANTOPRAZOLE 40 MG TABLET PO SCH ×2 (09:02→21:17)
[2022-03-08] MEDS: FENOFIBRATE 145 MG TABLET PO SCH (09:02)
[2022-03-08] MEDS: CHOLECALCIFEROL 5,000 UNIT TABLET PO SCH (09:02)
[2022-03-08] MEDS: HEPARIN 5,000 UNIT/1 ML VIAL SUBCUT SCH ×2 (09:19→21:17)
[2022-03-08] MEDS: ATORVASTATIN 20 MG TABLET PO SCH (10:14)
[2022-03-09] MEDS: INSULIN LISPRO 100 UNIT/ML SUBCUT SCH ×4 (00:04→18:03)
[2022-03-09] MEDS: VANCOMYCIN 125 MG CAPSULE PO SCH ×4 (00:21→18:05)
[2022-03-09 05:56] LABS: Basophils % 0.7 % (0.0-0.8); Eosinophils # 0.3 10*3/uL (0.0-0.87); Eosinophils % 4.7 % (0.00-10.9); Hematocrit 23.9 VOL% (42.0-52.0); Hemoglobin 7.1 GM/DL (14.0-18.0); Immature Granulocytes % 0.7 %; Immature Granulocytes Absolute 0.04 #; Lymphocytes # 0.9 10*3/uL (1.4-4.0); Lymphocytes % 17.4 % (21.2-54.2); Mean Corpuscular HGB Conc 29.7 GM/DL (32-36); Mean Corpuscular Volume 99.2 FL (87-102); Mean Platelet Volume 9.3 FL (9.6-12.0); Monocytes # 0.5 10*3/uL (0.11-0.8); Monocytes % 8.4 % (1.7-12.7); Neutrophils % 68.1 % (38.7-73.9); Platelet Count 162 T/CUMM (130-400); Red Blood Count 2.41 MC/CUMM (3.8-5.5); White Blood Count 5.3 T/CUMM (4-12)
[2022-03-09 06:19] LABS: % Iron Saturation 56.7 % (18-50); Alanine Aminotransferase 15 U/L (16-61); Albumin 2.2 G/DL (3.4-5.0); Alkaline Phosphatase 83 U/L (45-117); Aspartate Amino Transferase 20 U/L (0-37); Bilirubin,Total < 0.39 MG/DL (0.20-1.00); Blood Urea Nitrogen 46 MG/DL (7-18); Calcium 8.2 MG/DL (8.5-10.1); Carbon Dioxide 23 MMOL/L (21-32); Chloride 107 MMOL/L (98-107); Ferritin 1259.6 ng/mL (26-388); Glucose 106 MG/DL (74-106); Iron 123 UG/DL (65-175); Iron Binding Capacity 217 UG/DL (250-450); Osmolality,Calculated 288.5 MOS/KG (273-304); Potassium 4.1 MMOL/L (3.5-5.1); Sodium 139 MMOL/L (136-145); Total Protein 6.1 G/DL (6.4-8.2)
[2022-03-09 06:21] LABS: Calcium 8.3 MG/DL (8.5-10.1); Osmolality,Calculated 290.5 MOS/KG (273-304); Potassium 4.4 MMOL/L (3.5-5.1)
[2022-03-09] MEDS: BACILLUS COAGULANS CAPLET PO SCH ×2 (09:26→21:20)
[2022-03-09] MEDS: AMOXICILLIN/CLAV 500 MG TABLET PO SCH (09:26)
[2022-03-09] MEDS: ATORVASTATIN 20 MG TABLET PO SCH (09:27)
[2022-03-09] MEDS: SEVELAMER CARBONATE 800 MG TABLET PO SCH ×3 (09:27→18:03)
[2022-03-09] MEDS: CHOLECALCIFEROL 5,000 UNIT TABLET PO SCH (09:27)
[2022-03-09] MEDS: PANTOPRAZOLE 40 MG TABLET PO SCH ×2 (09:28→21:22)
[2022-03-09] MEDS: ASPIRIN EC 81 MG TABLET PO SCH (09:28)
[2022-03-09] MEDS: FENOFIBRATE 145 MG TABLET PO SCH (09:29)
[2022-03-09] MEDS: HEPARIN 5,000 UNIT/1 ML VIAL SUBCUT SCH ×2 (09:29→21:22)
[2022-03-09] MEDS: MAGNESIUM OXIDE 400 MG TABLET PO SCH (09:29)
[2022-03-10] MEDS: INSULIN LISPRO 100 UNIT/ML SUBCUT SCH ×3 (00:52→12:59)
[2022-03-10] MEDS: VANCOMYCIN 125 MG CAPSULE PO SCH ×3 (01:00→13:00)
[2022-03-10 06:09] LABS: Basophils % 0.6 % (0.0-0.8); Eosinophils # 0.3 10*3/uL (0.0-0.87); Eosinophils % 5.5 % (0.00-10.9); Hematocrit 23.2 VOL% (42.0-52.0); Immature Granulocytes % 0.4 %; Immature Granulocytes Absolute 0.02 #; Lymphocytes # 0.9 10*3/uL (1.4-4.0); Lymphocytes % 17.1 % (21.2-54.2); Mean Corpuscular HGB Conc 30.2 GM/DL (32-36); Mean Corpuscular Volume 99.6 FL (87-102); Mean Platelet Volume 9.4 FL (9.6-12.0); Monocytes # 0.5 10*3/uL (0.11-0.8); Monocytes % 8.5 % (1.7-12.7); Neutrophils % 67.9 % (38.7-73.9); Platelet Count 146 T/CUMM (130-400); Red Blood Count 2.33 MC/CUMM (3.8-5.5); White Blood Count 5.4 T/CUMM (4-12)
[2022-03-10] MEDS ORDERED: SODIUM CHLORIDE 0.9% 1,000 ML IV PRN (08:18)
[2022-03-10] MEDS: BACILLUS COAGULANS CAPLET PO SCH (10:42)
[2022-03-10] MEDS: CHOLECALCIFEROL 5,000 UNIT TABLET PO SCH (10:42)
[2022-03-10] MEDS: AMOXICILLIN/CLAV 500 MG TABLET PO SCH (10:42)
[2022-03-10] MEDS: PANTOPRAZOLE 40 MG TABLET PO SCH (10:43)
[2022-03-10] MEDS: SEVELAMER CARBONATE 800 MG TABLET PO SCH ×2 (10:43→13:00)
[2022-03-10] MEDS: ATORVASTATIN 20 MG TABLET PO SCH (10:43)
[2022-03-10] MEDS: ASPIRIN EC 81 MG TABLET PO SCH (10:43)
[2022-03-10] MEDS: MAGNESIUM OXIDE 400 MG TABLET PO SCH (10:43)
[2022-03-10] MEDS: FENOFIBRATE 145 MG TABLET PO SCH (10:43)
[2022-03-10] MEDS: HEPARIN 5,000 UNIT/1 ML VIAL SUBCUT SCH (10:44)
[2022-03-10 13:36] VITALS: BP 142/51
== END 2022-03-10 15:02 | disposition home or self-care (01) | DRG 391 ==
LOC: N.ED 08:39 → SUATTDRO 10:45 → N.EDINP 10:45 → N.5E 11:41 → N.2E 02-24 11:30
PROVIDERS: ADMIT Internal Medicine; ATTEND Internal Medicine

== ENCOUNTER 2022-03-30 03:55 | Observation (INO) ==
[2022-03-30] MEDS ORDERED: ONDANSETRON 4 MG/2 ML VIAL IV STA (04:27)
[2022-03-30] MEDS ORDERED: PANTOPRAZOLE 40 MG VIAL IV STA (04:27)
[2022-03-30] MEDS ORDERED: MORPHINE 2 MG/1 ML SYRINGE IV STA (04:27)
[2022-03-30 04:51] LABS: Basophils % 0.2 % (0.0-0.8); Eosinophils # 0.2 10*3/uL (0.0-0.87); Eosinophils % 2.2 % (0.00-10.9); Hematocrit 29.3 VOL% (42.0-52.0); Hemoglobin 8.9 GM/DL (14.0-18.0); Immature Granulocytes % 1.5 %; Immature Granulocytes Absolute 0.16 #; Lymphocytes # 0.9 10*3/uL (1.4-4.0); Lymphocytes % 8.3 % (21.2-54.2); Mean Corpuscular HGB Conc 30.4 GM/DL (32-36); Mean Corpuscular Volume 100.7 FL (87-102); Mean Platelet Volume 9.6 FL (9.6-12.0); Monocytes # 0.8 10*3/uL (0.11-0.8); Monocytes % 7.7 % (1.7-12.7); Neutrophils % 80.1 % (38.7-73.9); Platelet Count 174 T/CUMM (130-400); Red Blood Count 2.91 MC/CUMM (3.8-5.5); Red Cell Distribution Width 15.2 % (9.3-17.3); White Blood Count 10.5 T/CUMM (4-12)
[2022-03-30 05:00] LABS: INR 1.1; PT Patient Result 12.4 SECS (10.1-12.1)
[2022-03-30 05:11] LABS: Alanine Aminotransferase 14 U/L (16-61); Albumin 2.8 G/DL (3.4-5.0); Alkaline Phosphatase 101 U/L (45-117); Aspartate Amino Transferase 15 U/L (0-37); Blood Urea Nitrogen 50 MG/DL (7-18); Calcium 8.8 MG/DL (8.5-10.1); Carbon Dioxide 31 MMOL/L (21-32); Chloride 97 MMOL/L (98-107); Glucose 163 MG/DL (74-106); Osmolality,Calculated 289.8 MOS/KG (273-304); Potassium 4.2 MMOL/L (3.5-5.1); Sodium 137 MMOL/L (136-145); Total Protein 6.9 G/DL (6.4-8.2)
[2022-03-30] MEDS ORDERED: MEROPENEM 500 MG in SODIUM CHLORIDE 0.9% 100 ML IV ONE (06:12)
[2022-03-30] MEDS ORDERED: VANCOMYCIN INJ 1,000 MG in SODIUM CHLORIDE 0.9% 250 ML IV STA (06:13)
[2022-03-30] MEDS ORDERED: ONDANSETRON 4 MG/2 ML VIAL IV PRN (07:16)
[2022-03-30] MEDS ORDERED: hydrALAZINE 20 MG/1 ML VIAL IV PRN (07:16)
[2022-03-30] MEDS ORDERED: metroNIDAZOLE INJ 500 MG/100 ML PREMIX IV SCH (09:00)
[2022-03-30] MEDS ORDERED: CIPROFLOXACIN INJ 400 MG/200 ML PREMIX IV SCH (09:00)
[2022-03-30 09:29] LABS: Hematocrit 31.7 VOL% (42.0-52.0); Hemoglobin 9.6 GM/DL (14.0-18.0)
[2022-03-30] MEDS ORDERED: MAGNESIUM SULF RIDER 2 GM/50 ML PREMIX IV PRN (09:31)
[2022-03-30] MEDS ORDERED: MAGNESIUM SULF RIDER 4 GM/100 ML PREMIX IV PRN (09:31)
[2022-03-30] MEDS ORDERED: LOPERAMIDE 2 MG CAPSULE PO PRN (10:01)
[2022-03-30] MEDS ORDERED: SODIUM CHLORIDE 0.9% 500 ML IV ONE (10:21)
[2022-03-30] MEDS: PANTOPRAZOLE 40 MG VIAL IV SCH (10:28)
[2022-03-30] MEDS ORDERED: CALCIUM ACETATE 667 MG CAPSULE PO SCH (12:00)
[2022-03-30] MEDS: carvediloL 6.25 MG TABLET PO SCH ×2 (13:20→16:26)
[2022-03-30] MEDS: SEVELAMER CARBONATE 800 MG TABLET PO SCH ×2 (13:20→16:26)
[2022-03-30] MEDS ORDERED: VANCOMYCIN 125 MG CAPSULE PO SCH (15:00)
[2022-03-30 19:43] LABS: Hematocrit 27.2 VOL% (42.0-52.0); Hemoglobin 8.2 GM/DL (14.0-18.0)
[2022-03-30] MEDS: FIDAXOMICIN 200 MG TABLET PO SCH (21:33)
[2022-03-30] MEDS: BACILLUS COAGULANS CAPLET PO SCH (21:33)
[2022-03-30] MEDS: CHOLESTYRAMINE 4 GM PACK PO SCH (21:34)
[2022-03-31] MEDS ORDERED: SODIUM CHLORIDE 0.65% NASAL SPRAY 45 ML BOTTLE BOTH NARES PRN (00:29)
[2022-03-31 02:22] LABS: Hematocrit 32.7 VOL% (42.0-52.0)
[2022-03-31 02:23] LABS: Hemoglobin 9.4 GM/DL (14.0-18.0)
[2022-03-31 06:04] LABS: Basophils % 0.2 % (0.0-0.8); Eosinophils # 0.3 10*3/uL (0.0-0.87); Eosinophils % 2.8 % (0.00-10.9); Hemoglobin 8.1 GM/DL (14.0-18.0); Immature Granulocytes % 1.1 %; Lymphocytes # 0.7 10*3/uL (1.4-4.0); Lymphocytes % 7.6 % (21.2-54.2); Mean Corpuscular Volume 100.7 FL (87-102); Mean Platelet Volume 9.9 FL (9.6-12.0); Monocytes # 0.6 10*3/uL (0.11-0.8); Monocytes % 6.3 % (1.7-12.7); Platelet Count 147 T/CUMM (130-400); Red Blood Count 2.68 MC/CUMM (3.8-5.5); Red Cell Distribution Width 15.1 % (9.3-17.3); White Blood Count 9.5 T/CUMM (4-12)
[2022-03-31 06:24] LABS: Alanine Aminotransferase 12 U/L (16-61); Albumin 2.6 G/DL (3.4-5.0); Alkaline Phosphatase 102 U/L (45-117); Aspartate Amino Transferase 16 U/L (0-37); Bilirubin,Total < 0.39 MG/DL (0.20-1.00); Blood Urea Nitrogen 66 MG/DL (7-18); Calcium 8.1 MG/DL (8.5-10.1); Carbon Dioxide 28 MMOL/L (21-32); Chloride 99 MMOL/L (98-107); Glucose 160 MG/DL (74-106); Osmolality,Calculated 291.1 MOS/KG (273-304); Potassium 4.3 MMOL/L (3.5-5.1); Sodium 135 MMOL/L (136-145); Total Protein 6.3 G/DL (6.4-8.2)
[2022-03-31] MEDS ORDERED: MAGNESIUM SULF RIDER 2 GM/50 ML PREMIX IV ONE (07:00)
[2022-03-31 08:48] LABS: Hematocrit 27.7 VOL% (42.0-52.0); Hemoglobin 8.6 GM/DL (14.0-18.0)
[2022-03-31] MEDS ORDERED: amLODIPine 10 MG TABLET PO SCH (09:00)
[2022-03-31] MEDS ORDERED: FENOFIBRATE 145 MG TABLET PO SCH (09:00)
[2022-03-31] MEDS: BACILLUS COAGULANS CAPLET PO SCH (09:00)
[2022-03-31] MEDS ORDERED: ATORVASTATIN 20 MG TABLET PO SCH (09:00)
[2022-03-31] MEDS ORDERED: CETIRIZINE 10 MG TABLET PO SCH (09:00)
[2022-03-31] MEDS: SEVELAMER CARBONATE 800 MG TABLET PO SCH ×2 (09:01→12:58)
[2022-03-31] MEDS: PANTOPRAZOLE 40 MG VIAL IV SCH (09:01)
[2022-03-31] MEDS: carvediloL 6.25 MG TABLET PO SCH (09:01)
[2022-03-31] MEDS: FIDAXOMICIN 200 MG TABLET PO SCH (09:01)
[2022-03-31] MEDS: CHOLESTYRAMINE 4 GM PACK PO SCH (12:58)
[2022-03-31 13:08] VITALS: BP 115/47
[2022-03-31] MEDS ORDERED: MEROPENEM 500 MG in SODIUM CHLORIDE 0.9% 100 ML IV SCH (17:00)
== END 2022-03-31 14:00 | disposition home or self-care (01) ==
LOC: N.EDINP 03:55 → N.ED 03:55 → N.2E 08:01
PROVIDERS: ADMIT Internal Medicine; ATTEND Internal Medicine